=== PATIENT | male | born 1970 | race Caucasian/White ===

== ENCOUNTER 2019-11-30 13:36 | Outpatient (REF) | payer MEDICAID, SELFPAY | END 2019-11-30 13:37 | disposition home or self-care (01) | LOC: HO.LAB 13:36 | PROVIDERS: PCP Internal Medicine; Visit Provider Internal Medicine | DX: Z20.828 Contact with and (suspected) exposure to other viral communicable diseases (principal) | CPT/HCPCS: 87635 ==

== ENCOUNTER 2019-12-16 10:04 | Outpatient (REF) | payer MEDICAID, SELFPAY | END 2019-12-16 10:05 | disposition home or self-care (01) | LOC: HO.LAB 10:04 | PROVIDERS: Visit Provider Internal Medicine | DX: Z20.828 Contact with and (suspected) exposure to other viral communicable diseases (principal); R19.7 Diarrhea, unspecified | CPT/HCPCS: 99212; C9803; U0003 ==

== ENCOUNTER 2020-02-08 14:14 | Outpatient (REF) | payer MEDICAID, SELFPAY ==
[2020-02-08 15:32] LABS: Alanine Aminotransferase 36 U/L (0-40); Albumin Level 4.9 g/dL (3.5-5.0); Alkaline Phosphatase 81 U/L (39-117); Anion Gap 13 (12-20); Aspartate Amino Transferase 21 U/L (5-37); Bilirubin Total 0.7 mg/dL (0.0-1.0); Blood Urea Nitrogen 11 mg/dL (9-16); Carbon Dioxide 29 mmol/L (22-29); Chloride 104 mmol/L (96-108); Cholesterol 129 mg/dL; Estimated Glomerular Filt Rate > 60; Glucose Random 92 mg/dL (60-115); HDL Cholesterol 38 mg/dL; LDL Cholesterol Calculated 73 mg/dl; Sodium 141 mmol/L (135-145); Total Protein 7.8 g/dL (6.5-8.0); Triglycerides 91 mg/dL
[2020-02-08 15:58] LABS: Vitamin B12 314 pg/mL (200-900)
== END 2020-02-08 14:15 | disposition home or self-care (01) ==
LOC: HO.LAB 14:14
PROVIDERS: PCP Internal Medicine; Visit Provider Internal Medicine
DX: F32.5 Major depressive disorder, single episode, in full remission (principal); E78.2 Mixed hyperlipidemia; I10 Essential (primary) hypertension; Z68.31 Body mass index [BMI] 31.0-31.9, adult
CPT/HCPCS: 80053; 80061; 82607

== ENCOUNTER → 2020-02-17 10:43 | Outpatient (BNVA) | payer MEDICAID, SELFPAY | PROVIDERS: PCP Internal Medicine; Visit Provider Physician Assistant | DX: Z76.89 Persons encountering health services in other specified circumstances (principal) ==

== ENCOUNTER 2020-06-26 16:29 | Emergency (ER) | payer MEDICAID, SELFPAY ==
[2020-06-26 16:43] VITALS: BP 120/60; BP 127/77; PULSE 88; PULSE 90; RESP 14; TEMP 36.6; O2SAT 100; O2SAT 99; BMI 25.0
--- NOTE | 2020-06-26 16:49 | ED_ITS ---
HPI - Altered Mental Status General Chief Complaint: Overdose Stated Complaint: od Time Seen by Provider: 06/26/20 16:45 Source: patient and EMS Mode of arrival: EMS Limitations: altered mental status History of Present Illness HPI narrative: Patient brought by EMS for semi responsive and slow respirations with white pill ? Fentanyl next to him , was given 6 mg of Narcan and patient responded patient is awake now but does not remember what happened denying any use of drugs no complaints no history of seizures MD complaint: decreased responsiveness Related Data Home Medications Medication Instructions Recorded Confirmed atorvastatin 40 mg tablet 40 mg PO DAILY 12/16/19 12/16/19 lisinopril 20 1 tab PO DAILY 12/16/19 12/16/19 mg-hydrochlorothiazide 25 mg tablet melatonin 10 mg capsule 10 mg PO BEDTIME PRN 12/16/19 12/16/19 Allergies Allergy/AdvReac Type Severity Reaction Status Date / Time No Known Allergies Allergy Unverified 10/29/19 19:44 [No Known Allergies*] Review of Systems Review of Systems: Yes Unobtainable due to mental condition [facility] Past Medical History Medical History COVID-19 HTN (hypertension) Intentional weight loss Family History Family History Father Pancreatic cancer Mother Diabetes Social History Social History Alcohol intake: current Smoking Status: Former smoker Advance Directives: No Advance Directives Information Provided: No Physical Exam Vital Signs: Vital Signs: Last Vital Signs Temp 98 F 06/26/20 16:43 Pulse 88 06/26/20 16:43 Resp 14 06/26/20 16:43 BP 127/77 06/26/20 16:43 Pulse Ox 100 06/26/20 16:43 Body Mass Index 25.0 Appearance: Alert. Oriented X3. No acute distress. Sleepy no track guerra Eyes: PERRLA, No Nystagmus ENT: Pharynx normal. Oral Mucosa moist Neck: Normal inspection. Neck supple. CVS: Normal heart rate and rhythm. Pulses normal. Respiratory: No respiratory distress. Equal air entry bilateral, no wheezing/rales/rhonchi Abdomen: Soft and nontender. Bowel sounds are present, no mass palpable, no CVA tenderness Skin: Skin warm and dry. Normal skin color. Normal skin turgor. Extremities: No lower extremity edema. No calf tenderness Neuro: Oriented X 3. No motor deficit. No sensory deficit.No cerebellar signs , cranial nerves II-XII intact MDM - Altered Mental Status MDM Narrative Medical decision making narrative: Patient awake and alert admits taking 1 small pill likely fentanyl prior to what happened. Lab Data Result diagrams: 06/26/20 18:03 06/26/20 18:03 Labs: Lab Results 06/26/20 06/26/20 06/26/20 Range/Units 17:02 17:32 18:03 WBC 19.6 H (4.8-10.8) X10*3/uL RBC 4.37 L (4.60-5.80) X10*6/uL Hgb 13.4 L (14.0-18.0) g/dl Hct 38.4 L (42-52) % MCV 87.9 (80-98) fL MCH 30.7 (27.0-33.0) pg MCHC 34.9 (31.0-36.0) g/dl RDW 12.5 (11.0-16.0) % Plt Count 309 (160-400) X10*3/uL MPV 10.1 (9.4-12.4) fL Immature Gran % (Auto) 0.9 H (0.0-0.4) % Neut % (Auto) 87.3 H (45-73) % Lymph % (Auto) 4.3 L (20-40) % Stone % (Auto) 7.0 (2-11) % Eos % (Auto) 0.2 (0-4) % Baso % (Auto) 0.3 (0-2) % Lymph # (Auto) 0.8 L (1.2-4.9) X10*3/uL Stone # (Auto) 1.4 H (0.1-1.2) X10*3/uL Eos # (Auto) 0.0 (0.0-0.4) X10*3/uL Baso # (Auto) 0.1 (0.0-0.2) X10*3/uL Abs Immat Gran (auto) 0.18 H (0.00-0.03) X10*3/uL Absolute Neuts (auto) 17.2 H (2.0-8.3) X10*3/uL Absolute Nucleated RBC 0.000 (0.0-0.012) X10*3/uL Nucleated RBC % (auto) 0.0 (0.0-0.2) /100WBC POC Glucose 223 H (60-115) mg/dL Urine Opiates Screen Not Detected (Not Detect) Ur Barbiturates Screen Not Detected (Not Detect) Ur Phencyclidine Scrn Not Detected (Not Detect) Ur Amphetamines Screen Not Detected (Not Detect) U Benzodiazepines Scrn Not Detected (Not Detect) Urine Cocaine Screen Not Detected (Not Detect) U Marijuana (THC) Screen Not Detected (Not Detect) Discharge Plan Discharge Prescriptions: No Action atorvastatin 40 mg tablet 40 mg PO DAILY RF: 0 lisinopril-hydrochlorothiazide 20-25 mg tablet 1 tab PO DAILY RF: 0 melatonin 10 mg capsule 10 mg PO BEDTIME PRNRF: 0
[2020-06-26 17:08] LABS: Glucose, Whole Blood 223 mg/dL (60-115)
--- NOTE | 2020-06-26 17:55 | PC.NURSE ---
Pt reports taking 1 small white powder or pill prior to feeling dizzy and laying down on the ground. Pt states he is unsure of what the substance was. Provider aware
[2020-06-26 18:08] LABS: MANUAL DIFF FLAG NO
[2020-06-26 18:11] LABS: Amphetamine Screen Urine Not Detected (Not Detect); Barbiturates, Urine Not Detected (Not Detect); Benzodiazepines Screen Urine Not Detected (Not Detect); Cannabinoid Screen Urine Not Detected (Not Detect); Cocaine Screen Urine Not Detected (Not Detect); Opiate Screen Urine Not Detected (Not Detect); Phencyclidine Screen Urine Not Detected (Not Detect)
[2020-06-26 18:20] LABS: Basophils Absolute Auto 0.1 X10*3/uL (0.0-0.2); Basophils Percent Auto 0.3 % (0-2); Eosinophils Percent Auto 0.2 % (0-4); Hematocrit 38.4 % (42-52); Hemoglobin 13.4 g/dl (14.0-18.0); Imm Gran Abs Auto 0.18 X10*3/uL (0.00-0.03); Imm Gran Pct Auto 0.9 % (0.0-0.4); Lymphocytes Absolute Auto 0.8 X10*3/uL (1.2-4.9); Lymphocytes Percent Auto 4.3 % (20-40); Mean Corpuscular HGB Conc 34.9 g/dl (31.0-36.0); Mean Corpuscular Hemoglobin 30.7 pg (27.0-33.0); Mean Corpuscular Volume 87.9 fL (80-98); Mean Platelet Volume 10.1 fL (9.4-12.4); Monocytes Absolute Auto 1.4 X10*3/uL (0.1-1.2); Neutrophils Absolute Auto 17.2 X10*3/uL (2.0-8.3); Neutrophils Percent Auto 87.3 % (45-73); Platelet Count 309 X10*3/uL (160-400); Red Blood Count 4.37 X10*6/uL (4.60-5.80); Red Cell Distribution Width 12.5 % (11.0-16.0); White Blood Count 19.6 X10*3/uL (4.8-10.8)
[2020-06-26 18:39] LABS: Ethanol < 10 mg/dL
[2020-06-26 18:40] LABS: Anion Gap 14 (12-20); Blood Urea Nitrogen 16 mg/dL (9-16); Calcium 9.4 mg/dL (8.4-10.2); Carbon Dioxide 24 mmol/L (22-29); Chloride 108 mmol/L (96-108); Creatinine Clr Calc Pharmacy 76.1; Estimated Glomerular Filt Rate > 60; Glucose Random 134 mg/dL (60-115); Potassium 4.2 mmol/L (3.3-5.1); Sodium 142 mmol/L (135-145)
[2020-06-26 19:21] VITALS: BP 119/69; PULSE 65; RESP 15; TEMP 36.4; O2SAT 96
[2020-06-26 19:40] VITALS: BP 117/75; PULSE 76; RESP 16; O2SAT 99
== END 2020-06-26 19:43 | disposition home or self-care (01) ==
PROVIDERS: Emergency Provider Internal Medicine
DX: T40.411A Poisoning by fentanyl or fentanyl analogs, accidental (unintentional), initial encounter (principal); Y92.9 Unspecified place or not applicable; Z79.899 Other long term (current) drug therapy; Z87.891 Personal history of nicotine dependence
CPT/HCPCS: 36415; 80048; 80307; 80320; 82947; 85025; 99284

== ENCOUNTER 2020-07-02 10:48 | Outpatient (REF) | payer MEDICAID, SELFPAY ==
[2020-07-02 10:59] LABS: MANUAL DIFF FLAG NO
[2020-07-02 11:02] LABS: Basophils Percent Auto 0.4 % (0-2); Eosinophils Absolute Auto 0.3 X10*3/uL (0.0-0.4); Eosinophils Percent Auto 3.5 % (0-4); Hematocrit 39.3 % (42-52); Hemoglobin 13.7 g/dl (14.0-18.0); Imm Gran Abs Auto 0.04 X10*3/uL (0.00-0.03); Imm Gran Pct Auto 0.5 % (0.0-0.4); Lymphocytes Absolute Auto 1.5 X10*3/uL (1.2-4.9); Lymphocytes Percent Auto 18.9 % (20-40); Mean Corpuscular HGB Conc 34.9 g/dl (31.0-36.0); Mean Corpuscular Hemoglobin 30.6 pg (27.0-33.0); Mean Corpuscular Volume 87.7 fL (80-98); Mean Platelet Volume 9.6 fL (9.4-12.4); Monocytes Absolute Auto 0.4 X10*3/uL (0.1-1.2); Monocytes Percent Auto 5.5 % (2-11); Neutrophils Absolute Auto 5.7 X10*3/uL (2.0-8.3); Neutrophils Percent Auto 71.2 % (45-73); Platelet Count 343 X10*3/uL (160-400); Red Blood Count 4.48 X10*6/uL (4.60-5.80); Red Cell Distribution Width 12.7 % (11.0-16.0); White Blood Count 8.1 X10*3/uL (4.8-10.8)
[2020-07-02 11:34] LABS: Alanine Aminotransferase 46 U/L (0-40); Albumin Level 4.5 g/dL (3.5-5.0); Alkaline Phosphatase 85 U/L (39-117); Anion Gap 12 (12-20); Aspartate Amino Transferase 20 U/L (5-37); Bilirubin Total 0.6 mg/dL (0.0-1.0); Blood Urea Nitrogen 14 mg/dL (9-16); Calcium 9.6 mg/dL (8.4-10.2); Carbon Dioxide 25 mmol/L (22-29); Chloride 110 mmol/L (96-108); Cholesterol 203 mg/dL; Estimated Glomerular Filt Rate > 60; Glucose Random 99 mg/dL (60-115); HDL Cholesterol 49 mg/dL; LDL Cholesterol Calculated 138 mg/dl; Potassium 4.2 mmol/L (3.3-5.1); Sodium 143 mmol/L (135-145); Total Protein 7.3 g/dL (6.5-8.0); Triglycerides 83 mg/dL
== END 2020-07-02 10:49 | disposition home or self-care (01) ==
LOC: HO.LAB 10:48
PROVIDERS: PCP Internal Medicine; Visit Provider Internal Medicine
DX: Z00.01 Encounter for general adult medical examination with abnormal findings (principal); E78.00 Pure hypercholesterolemia, unspecified; I10 Essential (primary) hypertension; F32.89 Other specified depressive episodes
CPT/HCPCS: 36415; 80053; 80061; 85025

== ENCOUNTER 2020-08-24 22:03 | Emergency (ER) | payer MEDICAID, SELFPAY ==
[2020-08-24 22:10] VITALS: BP 107/66; PULSE 83; RESP 18; TEMP 37.1; O2SAT 100; BMI 33.4
--- NOTE | 2020-08-24 22:45 | PC.NURSE ---
2220: neuros intact during triage. affect flat. Pt reports anxiety and hearing himself in his ears .
[2020-08-24 22:53] VITALS: BP 112/71; PULSE 80; RESP 16; O2SAT 99
[2020-08-24 23:27] VITALS: BP 99/54; PULSE 73
--- NOTE | 2020-08-24 23:27 | ECG_ITS ---
Test Reason : SOB Blood Pressure : / mmHG Vent. Rate : 072 BPM Atrial Rate : 072 BPM P-R Int : 162 ms QRS Dur : 082 ms QT Int : 434 ms P-R-T Axes : 043 019 031 degrees QTc Int : 475 ms Normal sinus rhythm Normal ECG When compared to the previous EKG of No significant changes seen Referred By: Rebecca Gold Electronically Signed By:Kai Motley
[2020-08-24 23:40] VITALS: BP 92/54; PULSE 83
[2020-08-24 23:42] VITALS: BP 86/56; PULSE 80
[2020-08-24 23:56] LABS: Glucose, Whole Blood 93 mg/dL (60-115)
--- NOTE | 2020-08-24 23:59 | PC.NURSE ---
PT ADMITS TO USIG 5 BAGS OF HEROIN TONIGHT. STATES HE PUTS IT ON MY TONGUE . PT STATES AFTER USING THE HEOIN HE TOOK A NAP AND THEN WOKE UP NOT FEELING RIGHT AND SAID HE COULD HEAR MY VOICE IN MY R EAR
--- NOTE | 2020-08-25 00:34 | ED.GENADULT ---
HPI - General Adult General Chief complaint: General Medical Stated complaint: ear pain, cannot hear Time Seen by Provider: 08/24/20 23:27 History of Present Illness HPI narrative: 49-year-old male presents with hearing disturbance and ?wooziness? this started after patient used 5 bags of heroin. Patient states that he does not use frequently. Otherwise, he denies shortness of breath, chest pain/palpitations. At this time he states his symptoms have improved. Patient denies any suicidal or homicidal ideation. Related Data Allergies Allergy/AdvReac Type Severity Reaction Status Date / Time kiwi [KIWI] Allergy Unknown SWOLLEN Verified 08/25/20 01:00 LIPS Review of Systems Review of Systems: Pertinent positives and negatives as stated in HPI 10 point review of systems is otherwise negative. PMFSH Past Medical History Source: nursing notes reviewed Medical History Depression High cholesterol HTN (hypertension) Sudden hearing loss Surgical History No history of previous surgery Social History Social History Advance Directives: No Advance Directives Information Provided: No Physical Exam Vital Signs: Vital Signs: Last Vital Signs Temp 98.7 F 08/24/20 22:10 Pulse 87 08/25/20 02:34 Resp 20 08/25/20 02:34 BP 113/60 08/25/20 02:34 Pulse Ox 99 08/25/20 02:34 Body Mass Index 33.4 VITAL SIGNS: Reviewed. GENERAL: Well developed, well nourished, in no acute distress. HEAD: Normocephalic/atraumatic EYES: PERRLA, EOMI OROPHARYNX: no oral lesions noted, posterior pharynx clear NECK: Supple, no adenopathy LUNGS: Normal breath sounds. No adventitious sounds or accessory muscle use. SpO2<99> CARDIOVASCULAR: Regular rate and rhythm without noted murmurs ABDOMEN: Soft, non-tender, non-distended with bowel sounds. SKIN: Inspection of the skin reveals no rashes NEUROLOGIC: Alert and oriented x 4. Strength and sensation to light touch were grossly intact x 4. Course Course Course Narrative: 49-year-old male with history and clinical presentation consistent with heroin overdose in appear to be very drowsy with pinpoint pupils and so patient was provided with intranasal Narcan as well as Zofran with significant improvement in level of alertness. Patient demonstrated complete resolution of all symptoms. He was observed for 2 hours and then discharged in stable condition. Medical Decision Making Lab Data Labs: Lab Results 08/24/20 Range/Units 23:46 POC Glucose 93 (60-115) mg/dL ECG Data Prior ECG tracings: not available for review Interpretation: Normal sinus rhythm, HR-72, no STEMI, [place]/QRS/QTC are within normal limits. Discharge Plan Discharge Clinical Impression: Overdose Patient Disposition: Home, Self-Care Instructions: Adult Overdose (ED) Additional Instructions: Return to the ER for acute worsening of symptoms. Referrals: Esther Greer MD [Primary Care Provider] - 2 days Interventions: ED Discharge Assessment Last Done: 08/25/20 03:24 Discharge Date/Time: 08/25/20 03:25 Print Language: Irish
[2020-08-25 00:56] VITALS: O2SAT 98
[2020-08-25] MEDS: ondansetron HCL 4 MG/2 ML VIAL IVPUSH (01:09)
[2020-08-25 01:10] VITALS: BP 115/57; PULSE 65; RESP 18
[2020-08-25] MEDS: Naloxone HCl Nasal 4 MG SPRAY NOSTRILALT (01:10)
[2020-08-25 02:34] VITALS: BP 113/60; PULSE 87; RESP 20; O2SAT 99
[2020-08-25] MEDS: Naloxone HCl Nasal TAKE HOME 4 MG SPRAY NOSTRILALT (03:25)
== END 2020-08-25 03:25 | disposition home or self-care (01) ==
PROVIDERS: Emergency Provider Student in an Organized Health Care Education/Training Program; PCP Internal Medicine
DX: T40.1X1A Poisoning by heroin, accidental (unintentional), initial encounter (principal); Y92.9 Unspecified place or not applicable; F11.10 Opioid abuse, uncomplicated; Z71.51 Drug abuse counseling and surveillance of drug abuser; Z79.899 Other long term (current) drug therapy
CPT/HCPCS: 82947; 93005; 96374; 99284; J2405

== ENCOUNTER 2020-10-04 10:34 | Outpatient (REF) | payer MEDICAID, SELFPAY ==
[2020-10-04 11:08] LABS: COVID-19 Test Negative (Negative)
== END 2020-10-04 10:35 | disposition home or self-care (01) ==
LOC: HO.LAB 10:34
PROVIDERS: PCP Internal Medicine; Visit Provider Internal Medicine
DX: Z20.822 Contact with and (suspected) exposure to COVID-19 (principal)
CPT/HCPCS: 36415; 87635; C9803

== ENCOUNTER 2020-12-28 11:54 | Emergency (ER) | payer MEDICAID, SELFPAY ==
--- NOTE | ~2020-12-28 | CT_ITS ---
EXAMINATION: CT CERVICAL SPINE WITHOUT CONTRAST CLINICAL INFORMATION: Left finger tingling COMPARISON: CT cervical spine noncontrast 10/18/2018 TECHNIQUE: Multidetector volumetric CT imaging of the cervical spine is performed without contrast in the axial plane. Additional 2D reformatted coronal and sagittal images are generated on the CT workstation and uploaded to PACS. This CT examination was performed using dose optimization techniques as appropriate, variously including the following: *Automated exposure control *Adjustment of mA and/or kV according to patient size (this includes techniques or standardized protocols for targeted exams where dose is matched to indication/reason for exam; i.e. extremities or head) *Use of iterative reconstruction technique DLP: 634 mGy-cm FINDINGS: There is mild rightward tilting cervical spine similar to prior exam. There is normal cervical lordosis. The craniocervical junction is normal. The odontoid appears intact. There is no vertebral compression or visible fracture. There is no spondylolisthesis or destructive process or paraspinal soft tissue swelling. No prevertebral soft tissue swelling. There is mild vertebral spurring C3-C4 and C4-C5. There is borderline disc narrowing C6-C7. No perched facet. No erosive change. No visible focal osseous narrowing neural foramina. Lung apices are clear. No pneumothorax. CT/CT cervical spine wo con IMPRESSION: No acute bony abnormality or prevertebral soft tissue swelling.
[2020-12-28 11:58] VITALS: BP 144/81; PULSE 85; RESP 16; TEMP 37.2; O2SAT 100; BMI 30.4
--- NOTE | 2020-12-28 14:17 | ECG_ITS ---
Test Reason : finger tingling Blood Pressure : / mmHG Vent. Rate : 071 BPM Atrial Rate : 071 BPM P-R Int : 154 ms QRS Dur : 074 ms QT Int : 406 ms P-R-T Axes : 047 016 049 degrees QTc Int : 441 ms Normal sinus rhythm Normal ECG When compared with ECG of 24-AUG-2020 23:52, No significant change was found Referred By: Jennifer Fritz Electronically Signed By:GRETCHEN BUI MD
[2020-12-28 15:46] VITALS: BP 142/85; PULSE 65; RESP 16; TEMP 36.6; O2SAT 100
--- NOTE | 2020-12-28 16:34 | ED_ITS ---
HPI - General Adult General Chief complaint: Extremity Problem Stated complaint: lt arm & finger numbness Time Seen by Provider: 12/28/20 14:00 Source: patient Mode of arrival: ambulatory History of Present Illness HPI narrative: 50-year-old male with a past medical history of COVID-19, depression, hyperlipidemia, hypertension presenting to the ED complaining of intermittent left index finger tingling/paresthesias radiating up left arm x a couple days. Reports pain to left trapezius muscle, worse with movement. Denies weakness, CP, SOB, neck/back pain, urinary incontinence/retention, headache, visual change/loss Onset (ago): day(s) Related Data Home Medications Medication Instructions Recorded Confirmed atorvastatin 40 mg tablet 40 mg PO DAILY 12/16/19 12/16/19 lisinopril 20 1 tab PO DAILY 12/16/19 12/16/19 mg-hydrochlorothiazide 25 mg tablet melatonin 10 mg capsule 10 mg PO BEDTIME PRN 12/16/19 12/16/19 Previous Rx's Medication Instructions Recorded acetaminophen 500 mg tablet 500 mg PO Q6H PRN #20 tab 12/28/20 (Tylenol Extra Strength) cyclobenzaprine 5 mg tablet 5 mg PO Q8H PRN 5 Days #14 tab 12/28/20 lidocaine 5 % topical patch 1 patch TOPICAL DAILY PRN #30 ea 12/28/20 (Lidoderm) MDD remove after 12 hours naproxen 500 mg tablet 500 mg PO BID PRN 10 Days #20 tab 12/28/20 Allergies Allergy/AdvReac Type Severity Reaction Status Date / Time kiwi [KIWI] Allergy Unknown SWOLLEN Verified 10/04/20 11:00 LIPS Review of Systems Review of Systems: Constitutional: No Fever, No Chills, No Fatigue, No Malaise ENT/Mouth: No Ear Pain, No Nasal Congestion, No sore throat Eyes: No Eye Pain, No Swelling, No Redness, No Discharge, No Vision Changes Cardiovascular: No Chest Pain, No SOB Respiratory: No Cough, No Sputum, No Dyspnea Gastrointestinal: No Nausea, No Vomiting, No Diarrhea, No Constipation, No Abdominal pain Genitourinary: No Dysuria, No Urinary Frequency, No Hematuria, No Flank Pain, No urinary incontinence/retention Musculoskeletal: + joint pain, No Myalgias, No Joint Swelling Skin: No Skin Lesions, No rash Neuro: No Weakness, + Numbness, No Paresthesias, No Loss of Consciousness, No Dizziness, No Headache Yes all other systems are reviewed and are negative Neurologic: Denies Sensory deficit (Neuro) [facility] Past Medical History Attestation statement: The following information was validated with the patient. Medical History Depression High cholesterol HTN (hypertension) Sudden hearing loss Surgical History No history of previous surgery Family History Family History (System 10/04/20 @ 11:00 by Tawana Javier) Father Pancreatic cancer Mother Diabetes Social History Social History (System 10/04/20 @ 11:00 by Tawana Javier) Alcohol intake: current Advance Directives: No Advance Directives Information Provided: No Physical Exam Vital Signs: Vital Signs: Last Vital Signs Temp 98 F 12/28/20 15:46 Pulse 65 12/28/20 15:46 Resp 16 12/28/20 15:46 BP 142/85 H 12/28/20 15:46 Pulse Ox 100 12/28/20 15:46 Body Mass Index 30.4 Const: General: cooperative, healthy appearing and no acute distress Orientation/consciousness: patient oriented x3 Limitations: no limitations HENMT: Head: Yes normal to inspection and Yes atraumatic Ears: hearing grossly normal bilaterally, external ears normal, TM's normal bilaterally and mastoids normal General nose exam: Normal external nose present Face and sinus: Yes normal facial exam Mouth: Normal oral and palatal mucosa present Throat: Yes posterior oropharynx normal, Yes tonsils normal and Yes uvula midline Eyes: General: appearance normal, both eyes and all related structures Pupils: Equal, round and reactive pupils present EOM: EOMs intact bilaterally Neck: Other: No midline cervical spinous tenderness/step-off or deformity. + left trapezius muscle tenderness Neck: Yes normal visual inspection Resp: Effort & Inspection: normal respiratory effort and no respiratory distress Auscultation: clear to auscultation bilaterally Cardio: Rate: regular rate Heart sounds: S1 normal heart sound present and S2 normal heart sound present Peripheral pulses: radial pulses present GI: Inspection: Yes normal to inspection Palpation (GI): Soft to palpation, nontender, no guarding and not rigid : General: Yes no CVA tenderness Back/Spine/Pelvis: Other: No midline thoracic/lumbar spinous tenderness Back: no CVA tenderness Skin: Rashes: no rashes Wounds: no wounds Neuro: General: patient oriented x3, gait normal, tone normal, moves all extremities, no focal motor deficits and CN's II-XI intact bilaterally Cranial nerves: Yes CN's II-XII intact bilaterally and Yes Equal, round and reactive pupils present Gait exam (Neuro): Normal gait present Sensory Exam: No Sensory deficit (Neuro) Extrem: Other: Left hand range of motion intact, [id number] opposition intact, sensation intact to light touch. General: Yes normal to inspection Course Course Course Narrative: CT cervical spine wo con IMPRESSION: No acute bony abnormality or prevertebral soft tissue swelling. >> results discussed with patient, discussed recommended follow-up with Neurosurgery. He verbalized understanding feel safe for discharge home at this time Medical Decision Making MDM Narrative Medical decision making narrative: 50-year-old male with a past medical history of COVID-19, depression, hyperlipidemia, hypertension presenting to the ED complaining of intermittent left index finger tingling/paresthesias radiating up left arm x a couple days. Reports pain to left trapezius muscle, worse with movement. On exam vital signs stable, NAD/nontoxic. Concern for ?cervical stenosis vs neck MSK pain/trapezius spasming vs paresthesias. Low concern for carpal tunnel, ACS, cord compression Plan: EKG, CT cervial spine ECG Data Attestation: I personally reviewed and interpreted this ECG as follows: Interpretation: EKG normal sinus rhythm with a rate of 71. MI interval 54. QTC 441 Discharge Plan Discharge Clinical Impression: Hand paresthesia Qualifiers: Laterality: left Qualified Code(s): R20.2 - Paresthesia of skin Patient Disposition: Home, Self-Care Instructions: Paresthesia (ED) Additional Instructions: Your CT scan does not show any bony abnormality of your cervical spine. There is borderline disc narrowing at C6/C7 and some vertebral bone spurring at C3-C4 and C4-C5 it is recommended he follow-up with a neurosurgeon Flexeril is a muscle relaxer, take at night as it makes you drowsy, do not drive, drink alcohol, or operate machinery while taking it Naproxen as an anti-inflammatory / pain medication, take with food Lidoderm patches are numbing patches, apply to painful area In addition take Tylenol at home If symptoms persist or worsen, pain becomes unbearable, you developed urinary retention or incontinence, or weakness return to the ED Prescriptions: New acetaminophen [Tylenol Extra Strength] 500 mg tablet 500 mg PO Q6H PRN (Reason: pain or fever) Qty: 20 RF: 0 lidocaine [Lidoderm] 5 % adhesive patch,medicated 1 patch topical DAILY MDD remove after 12 hours PRN (Reason: pain) Qty: 30 RF: 0 naproxen 500 mg tablet 500 mg PO BID PRN (Reason: pain) 10 Days Qty: 20 RF: 0 cyclobenzaprine 5 mg tablet 5 mg PO Q8H PRN (Reason: pain (scale score 7-10)) 5 Days Qty: 14 RF: 0 No Action atorvastatin 40 mg tablet 40 mg PO DAILY RF: 0 lisinopril-hydrochlorothiazide 20-25 mg tablet 1 tab PO DAILY RF: 0 melatonin 10 mg capsule 10 mg PO BEDTIME PRNRF: 0 Referrals: Esther Greer MD [Primary Care Provider] - 2 days Gloria Short MD [Physician] - 5 days Interventions: ED Discharge Assessment Last Done: 12/28/20 16:57 Discharge Date/Time: 12/28/20 16:57
== END 2020-12-28 16:57 | disposition home or self-care (01) ==
PROVIDERS: Emergency Provider Emergency Medicine; PCP Internal Medicine
DX: R20.2 Paresthesia of skin (principal); I10 Essential (primary) hypertension
CPT/HCPCS: 72125; 93005; 99284

== ENCOUNTER 2021-01-05 10:30 | Emergency (ER) | payer MEDICAID, SELFPAY ==
[2021-01-05 10:34] VITALS: BP 146/86; PULSE 89; RESP 18; TEMP 36.8; O2SAT 100; BMI 33.4
--- NOTE | 2021-01-05 10:37 | ED.EXTPRO ---
HPI - Extremity Problem General Chief complaint: Extremity Problem Stated complaint: shoulder/arm pain, hand numbness Time Seen by Provider: 01/05/21 10:34 Source: patient Mode of arrival: ambulatory Limitations: no limitations History of Present Illness MD Complaint: extremity pain Onset (ago): day(s) (12) Pain Consistency: constant Location: left and upper extremity Quality: aching and constant Radiation: distal Relieving factors: other (massaging trapezius area) Exacerbating factors: range of motion and palpation Associated symptoms: other (r index finger numb ) Context: other (woke up like this) Related Data Home Medications Medication Instructions Recorded Confirmed atorvastatin 40 mg tablet 40 mg PO DAILY 12/16/19 12/16/19 lisinopril 20 1 tab PO DAILY 12/16/19 12/16/19 mg-hydrochlorothiazide 25 mg tablet melatonin 10 mg capsule 10 mg PO BEDTIME PRN 12/16/19 12/16/19 Previous Rx's Medication Instructions Recorded acetaminophen 500 mg tablet 500 mg PO Q6H PRN #20 tab 12/28/20 (Tylenol Extra Strength) cyclobenzaprine 5 mg tablet 5 mg PO Q8H PRN 5 Days #14 tab 12/28/20 lidocaine 5 % topical patch 1 patch TOPICAL DAILY PRN #30 ea 12/28/20 (Lidoderm) MDD remove after 12 hours naproxen 500 mg tablet 500 mg PO BID PRN 10 Days #20 tab 12/28/20 gabapentin 100 mg capsule 100 mg PO BID #30 cap 01/05/21 morphine 15 mg immediate release 15 mg PO Q6H PRN 3 Days #12 tab 01/05/21 tablet prednisone 20 mg tablet 40 mg PO DAILY 5 Days #10 tab 01/05/21 Allergies Allergy/AdvReac Type Severity Reaction Status Date / Time kiwi [KIWI] Allergy Unknown SWOLLEN Verified 10/04/20 11:00 LIPS Review of Systems Review of Systems: Constitutional : No Fever, No Chills ENT/Mouth : No Ear Pain, No Hoarseness, No sore throat Eyes: No Eye Pain, No Swelling, No Redness, No Foreign Body Cardiovascular : No Chest Pain, No SOB Respiratory : No Cough, No Dyspnea Gastrointestinal : No Nausea, No Vomiting, No Diarrhea, No abdominal Pain Genitourinary : No Dysuria, No Hematuria Musculoskeletal : positive joint pain, No Myalgias, No Joint Swelling Skin : No Skin lacerations, No rash Neuro : No Weakness, pos Numbness, No Loss of Consciousness, No Dizziness, No Headache Psych : No Anxiety/Panic, No Depression PMF Past Medical History Attestation statement: The following information was validated with the patient. Medical History COVID-19 Depression High cholesterol HTN (hypertension) HTN (hypertension) Intentional weight loss Sudden hearing loss Surgical History No history of previous surgery Family History Family History (System 10/04/20 @ 11:00 by Tawana Javier) Father Pancreatic cancer Mother Diabetes Social History Social History (Updated 01/05/21 @ 10:48 by Vanessa Harrington DO) Alcohol intake: current Patient Tobacco Use Status: Never used Tobacco Advance Directives: No Physical Exam Vital Signs: Vital Signs: Last Vital Signs Temp 98.2 F 01/05/21 10:34 Pulse 89 01/05/21 10:34 Resp 18 01/05/21 10:34 BP 146/86 H 01/05/21 10:34 Pulse Ox 100 01/05/21 10:34 Body Mass Index 33.4 Appearance: Alert. Oriented X3. No acute distress. Eyes: Pupils equal, round and reactive to light. ENT: Pharynx normal. Neck: Normal inspection. Neck supple. + spurling maneuver L side CVS: Normal heart rate and rhythm. Pulses normal. Respiratory: No respiratory distress. Breath sounds normal. Abdomen: Soft and nontender. Skin: Skin warm and dry. Normal skin color. Extremities: No lower extremity edema. LUE 2+ distal pulses 5/5 strenghth feels tingling in L index finger only Neuro: Oriented X 3. No motor deficit. No sensory deficit. MDM - Extremity (Nontraumatic) MDM Narrative Medical decision making narrative: 50 yo male with L sided cervical radiculopathy has good strenght in L hand reports tinglling in index finger bounding pulses - ongoing for 10+ days - has good follow up will start on pain medications and steroids. Anticipate DC home just had CT cspine Discharge Plan Discharge Clinical Impression: Cervical radiculopathy at C6 Patient Disposition: Home, Self-Care Instructions: Cervical Radiculopathy (ED) Additional Instructions: return to ED for any worsening symptoms or concerns Prescriptions: New prednisone 20 mg tablet 40 mg PO DAILY 5 Days Qty: 10 RF: 0 morphine 15 mg tablet 15 mg PO Q6H PRN (Reason: pain) 3 Days Qty: 12 RF: 0 gabapentin 100 mg capsule 100 mg PO BID Qty: 30 RF: 0 No Action acetaminophen [Tylenol Extra Strength] 500 mg tablet 500 mg PO Q6H PRN (Reason: pain or fever) Qty: 20 RF: 0 lidocaine [Lidoderm] 5 % adhesive patch,medicated 1 patch topical DAILY MDD remove after 12 hours PRN (Reason: pain) Qty: 30 RF: 0 naproxen 500 mg tablet 500 mg PO BID PRN (Reason: pain) 10 Days Qty: 20 RF: 0 cyclobenzaprine 5 mg tablet 5 mg PO Q8H PRN (Reason: pain (scale score 7-10)) 5 Days Qty: 14 RF: 0 atorvastatin 40 mg tablet 40 mg PO DAILY RF: 0 lisinopril-hydrochlorothiazide 20-25 mg tablet 1 tab PO DAILY RF: 0 melatonin 10 mg capsule 10 mg PO BEDTIME PRNRF: 0 Referrals: Esther Greer MD [Primary Care Provider] - 5 days Interventions: ED Discharge Assessment Last Done: 01/05/21 11:10 Discharge Date/Time: 01/05/21 11:10
== END 2021-01-05 11:10 | disposition home or self-care (01) ==
PROVIDERS: Emergency Provider Emergency Medicine; PCP Internal Medicine
DX: M54.12 Radiculopathy, cervical region (principal); Z79.899 Other long term (current) drug therapy
CPT/HCPCS: 99283

== ENCOUNTER 2021-01-11 00:53 | Inpatient (IN) | payer MEDICAID, SELFPAY ==
[2021-01-11] VITALS (19 sets, daily range): BP systolic 113–145; BP diastolic 62–86; PULSE 88–119; RESP 10–34; TEMP 35.5–36.7; O2SAT 89–100; BMI 33.7
--- NOTE | ~2021-01-11 | CT_ITS ---
EXAMINATION: CT CHEST WITHOUT CONTRAST CLINICAL INFORMATION: Shortness of breath. Question aspiration. COMPARISON: Chest radiograph 01/11/2021. TECHNIQUE: Multidetector volumetric CT imaging of the chest was done. Axial MIP volume rendering provided. Sagittal and coronal reformatted images were obtained. This CT examination was performed using dose optimization techniques as appropriate, variously including the following: *Automated exposure control *Adjustment of mA and/or kV according to patient size (this includes techniques or standardized protocols for targeted exams where dose is matched to indication/reason for exam; i.e. extremities or head) *Use of iterative reconstruction technique DLP: 349 mGy-cm FINDINGS: CLINICAL SERVICES SPECIALIST: Multiple external artifacts overlie the thorax. LUNGS: Multifocal groundglass and developing alveolar opacities are present in association with peribronchial wall thickening which is probably bilateral and symmetric. Relative subpleural sparing is noted bilaterally. No air bronchograms or dense pulmonary consolidation is identified. No evidence of centrilobular emphysema. MEDIASTINUM: No lymphadenopathy. Normal heart size. Normal caliber of the thoracic aorta. No gross pericardial fluid collections. PLEURA: There is no pleural effusion. No pleural mass or thickening. AXILLA: No lymphadenopathy. UPPER ABDOMEN: Moderate gaseous and fluid distention of the stomach. No fluid distention of the thoracic esophagus. OSSEOUS STRUCTURES: Mild multilevel chronic spondylosis of the thoracic spine. CT/CT chest wo con IMPRESSION: -Bilateral diffuse alveolar opacities and peribronchial wall thickening in a generally symmetric configuration. These findings may represent pulmonary edema. Relative subpleural sparing of findings is noted which is sometimes a feature resolving pulmonary edema. Findings could also represent infection or pulmonary hemorrhage. Findings are not typical for aspiration pneumonitis given the diffuse appearance of findings and relative subpleural sparing. Multifocal atypical/viral pneumonia could have a similar appearance. -Moderate quantity of gas and fluid within the visualized stomach. No fluid distention of the thoracic esophagus.
--- NOTE | ~2021-01-11 | CT_ITS ---
EXAMINATION: CT HEAD WITHOUT CONTRAST CLINICAL INFORMATION: Fall. Overdose. COMPARISON: None TECHNIQUE: Contiguous axial imaging was performed from the skull base to vertex without intravenous administration of contrast. This CT examination was performed using dose optimization techniques as appropriate, variously including the following: *Automated exposure control *Adjustment of mA and/or kV according to patient size (this includes techniques or standardized protocols for targeted exams where dose is matched to indication/reason for exam; i.e. extremities or head) *Use of iterative reconstruction technique DLP: 976 mGy-cm FINDINGS: The ventricles and sulci are normal in size and configuration. No focal parenchymal lesions of the brain or abnormal extra-axial fluid collections identified. No intrarenal hemorrhage, tumors or acute infarcts noted. The orbits and globes are normal in appearance. Cutaneous faisal are present in the left parietal region. Minimal dependent fluid is present within the maxillary sinuses. No maxillofacial soft tissue inflammatory changes. Intact appearance of the orbital martell. CT/CT head/brain wo con IMPRESSION: -No intracranial abnormalities. -Extracranial cutaneous faisal in the left parietal region.
--- NOTE | ~2021-01-11 | XR_ITS ---
EXAMINATION: XR CHEST CLINICAL INFORMATION: Aspiration versus pulmonary edema. COMPARISON: Chest radiograph 10/18/2018. TECHNIQUE: Frontal view of the chest was obtained. FINDINGS: Cardiomegaly mediastinal silhouette is normal in appearance. No effusions or pneumothoraces are visualized. Low lung volumes are present. Mild diffuse vascular indistinctness is noted. No focal pulmonary consolidation. XR/XR chest 1V IMPRESSION: -Mild pulmonary vascular congestion. No focal pulmonary consolidation.
[2021-01-11 01:05] LABS: Glucose, Whole Blood 333 mg/dL (60-115)
--- NOTE | 2021-01-11 01:07 | ED.OVERDOSE ---
HPI - Overdose General Chief Complaint: Overdose Stated Complaint: OD, head strike w/ lac Time Seen by Provider: 01/11/21 00:59 Source: patient and EMS Mode of arrival: EMS History of Present Illness HPI Narrative: 50-year-old male brought in by EMS after they were called for the roommate finding patient unresponsive face down on the floor. EMS administered 12 mg of intranasal Narcan in total prior to arrival, patient was noted to be hypoxic initially with sugars into the 400s but patient has no history of diabetes. EMS reports laceration to the left parietal scalp with control bleeding. Patient endorses that he consumed ?a lot? of escitalopram and morphine pills the latter of which were prescribed to him for left upper extremity pain. EMS states that on the way in patient has had multiple episodes of vomiting and suspicious for aspiration. Related Data Home Medications Medication Instructions Recorded Confirmed atorvastatin 40 mg tablet 40 mg PO DAILY 12/16/19 12/16/19 lisinopril 20 1 tab PO DAILY 12/16/19 12/16/19 mg-hydrochlorothiazide 25 mg tablet melatonin 10 mg capsule 10 mg PO BEDTIME PRN 12/16/19 12/16/19 Previous Rx's Medication Instructions Recorded acetaminophen 500 mg tablet 500 mg PO Q6H PRN #20 tab 12/28/20 (Tylenol Extra Strength) cyclobenzaprine 5 mg tablet 5 mg PO Q8H PRN 5 Days #14 tab 12/28/20 lidocaine 5 % topical patch 1 patch TOPICAL DAILY PRN #30 ea 12/28/20 (Lidoderm) MDD remove after 12 hours naproxen 500 mg tablet 500 mg PO BID PRN 10 Days #20 tab 12/28/20 gabapentin 100 mg capsule 100 mg PO BID #30 cap 01/05/21 prednisone 20 mg tablet 40 mg PO DAILY 5 Days #10 tab 01/05/21 Allergies Allergy/AdvReac Type Severity Reaction Status Date / Time kiwi [KIWI] Allergy Unknown SWOLLEN Verified 01/11/21 01:19 LIPS Review of Systems Review of Systems: Pertinent positives and negatives as stated in HPI 10 point review of systems is otherwise negative. PMFSH Past Medical History Source: nursing notes reviewed Medical History COVID-19 Depression High cholesterol HTN (hypertension) HTN (hypertension) Intentional weight loss Sudden hearing loss Surgical History No history of previous surgery Family History Family History Father Pancreatic cancer Mother Diabetes Social History Social History Alcohol intake: current Patient Tobacco Use Status: Never used Tobacco Advance Directives: No Advance Directives Information Provided: Yes Physical Exam Vital Signs: Vital Signs: Last Vital Signs Temp 96.2 F L 01/11/21 02:03 Pulse 89 01/11/21 04:12 Resp 26 H 01/11/21 04:18 BP 113/72 01/11/21 04:12 Pulse Ox 93 01/11/21 04:12 Oxygen Flow Rate 6 01/11/21 01:07 Body Mass Index 33.7 VITAL SIGNS: Reviewed. GENERAL: Well developed, well nourished, in no acute distress. HEAD: Normocephalic/4 cm scalp laceration to left parietal EYES: PERRLA, EOMI, pinpoint EARS: Ext canals without abnormality, TMs non-bulging and non-erythematous NOSE: Nares patent bilateral OROPHARYNX: no oral lesions noted, posterior pharynx clear and non-erythematous without noted tonsillar enlargement/erythema/exudates NECK: Supple, no adenopathy LUNGS: Tachypnea, increased work of breathing, bilateral coarse rhonchi throughout SpO2<92> on 6 L CARDIOVASCULAR: Regular rate and rhythm without noted murmurs, no JVD or lower extremity edema. ABDOMEN: Soft, non-tender, non-distended with bowel sounds. SKIN: Inspection of the skin reveals no rashes NEUROLOGIC: Drowsy but easily aroused and oriented x 3. Strength and sensation to light touch were grossly intact x 4. Course Course Course Narrative: 50-year-old male found unresponsive, unclear whether syncopal, seizure, accidental overdose. On arrival patient noted to be an respiratory distress likely secondary to a combination of events such as aspiration, possible pulmonary edema secondary to Narcan administration, and less likely possibility patient's underlying asthma. Patient was provided with albuterol nebulize treatments and ultimately placed on high-flow and has progressively become more alert but is overall drowsy. Initially, patient was noted to be in respiratory acidosis likely secondary to unresponsive state as well as noted to have an elevated lactic acid also thought to be secondary to patient's unresponsive state. On repeat lab work this has continue to improve, although patient still mildly acidotic with pCO2 relatively unchanged despite being on high-flow. The noted leukocytosis is felt to be reactive, however patient was treated with prophylactic antibiotics given suspected aspiration event. He is otherwise hemodynamically stable. I discussed this case with inpatient hospitalist who agrees for admission. Procedures Laceration Laceration 1: Site: scalp Side (If applicable): left Size (cm): 4 Description: linear Depth: simple, single layer Pre-repair: wound explored, irrigated extensively and deep structures intact Skin layer closed with: other ([place], #11) MDM - Overdose Lab Data Result diagrams: 01/11/21 01:10 01/11/21 03:59 Labs: Lab Results 01/11/21 01/11/21 01/11/21 Range/Units 01:01 01:10 01:10 WBC 26.2 H (4.8-10.8) X10*3/uL RBC 4.68 (4.60-5.80) X10*6/uL Hgb 14.2 (14.0-18.0) g/dl Hct 44.4 (42.0-52.0) % MCV 94.9 (80.0-98.0) fL MCH 30.3 (27.0-33.0) pg MCHC 32.0 (31.0-36.0) g/dl RDW 14.4 (11.0-16.0) % Plt Count [employer] MPV Not Reportable Immature Gran % (Auto) Cancelled Neut % (Auto) Cancelled Lymph % (Auto) Cancelled [place] % (Auto) Cancelled Eos % (Auto) Cancelled Baso % (Auto) Cancelled Lymph # (Auto) Cancelled [place] # (Auto) Cancelled Eos # (Auto) Cancelled Baso # (Auto) Cancelled Abs Immat Gran (auto) Cancelled Absolute Neuts (auto) Cancelled Absolute Nucleated RBC 0.120 H (0.0-0.012) X10*3/uL Nucleated RBC % (auto) 0.5 H (0.0-0.2) /100WBC Neutrophils % (Manual) 64 (45-73) % Band Neutrophils % 4 (3-5) % Lymphocytes % (Manual) 20 (20-40) % Monocytes % (Manual) 1 L (2-11) % Metamyelocytes % 9 % Myelocytes % 2 % Abs Neuts (Manual) 17.8 H (2.0-8.3) X10*3/uL Lymphocytes # (Manual) 5.2 H (1.2-4.9) X10*3/uL Monocytes # (Manual) 0.3 (0.1-1.2) X10*3/uL Metamyelocytes # 2.4 X10*3/uL Myelocytes # 0.5 X10*/uL Nucleated RBCs 2 H (0-0) /100WBC Toxic Vacuolation PRESENT Platelet Estimate NORMAL (NORMAL) Large Platelets PRESENT Plt Morphology Comment NORMAL RBC Morphology NORMAL Polychromasia 1+ (0-2) /OIF Basophilic Stippling 1+ (0-2) /OIF Tear Drop Cells 1+ (0-2) /OIF VBG pH (7.32-7.43) VBG pCO2 mmHg VBG pO2 mmHg VBG HCO3 (22-26) mmol/L VBG O2 Saturation % VBG Base Excess mmol/L Sodium 140 (135-145) mmol/L Potassium 5.6 H D (3.3-5.1) mmol/L Chloride 103 (96-108) mmol/L Carbon Dioxide 20 L (22-29) mmol/L Anion Gap 23 H (12-20) BUN 29 H D (9-16) mg/dL Creatinine 1.48 H (0.5-1.4) mg/dL Estim Creat Clear Calc 70.2 Estimated GFR 51 POC Glucose 333 H (60-115) mg/dL Random Glucose 372 H* (60-115) mg/dL Lactic Acid (0.5-2.0) mmol/L Lactic Acid Fup @ 2Hr (0.5-2.0) mmol/L Calcium 9.5 (8.4-10.2) mg/dL Total Bilirubin 0.3 (0.0-1.0) mg/dL AST 56 H (5-37) U/L ALT 68 H (0-40) U/L Alkaline Phosphatase 94 (39-117) U/L Troponin I High Sens (<3.5-35.0) ng/L Total Protein 7.1 (6.5-8.0) g/dL Albumin 4.2 (3.5-5.0) g/dL Lipase 33 (8-78) U/L Urine Color Urine Appearance Urine pH (5.0-8.0) Ur Specific [place] (1.005-1.025) Urine Protein (NEG-TRACE) MG/DL Urine Glucose (UA) (NEG) MG/DL Urine Ketones (NEG) MG/DL Urine Blood (NEG) Urine Nitrite (NEG) Ur Leukocyte Esterase (NEG) Urine Opiates Screen (Not Detect) Urine Fentanyl Screen (Not Detect) Ur Barbiturates Screen (Not Detect) Ur Phencyclidine Scrn (Not Detect) Ur Amphetamines Screen (Not Detect) U Benzodiazepines Scrn (Not Detect) Urine Cocaine Screen (Not Detect) U Marijuana (THC) Screen (Not Detect) Ethyl Alcohol mg/dL Acetone, Qual Negative (Negative) COVID-19 (ELBA) (Negative) COVID-19 Clin Com 01/11/21 01/11/21 01/11/21 Range/Units 01:10 01:10 01:10 WBC (4.8-10.8) X10*3/uL RBC (4.60-5.80) X10*6/uL Hgb (14.0-18.0) g/dl Hct (42.0-52.0) % MCV (80.0-98.0) fL MCH (27.0-33.0) pg MCHC (31.0-36.0) g/dl RDW (11.0-16.0) % Plt Count MPV Immature Gran % (Auto) Neut % (Auto) Lymph % (Auto) [place] % (Auto) Eos % (Auto) Baso % (Auto) Lymph # (Auto) [place] # (Auto) Eos # (Auto) Baso # (Auto) Abs Immat Gran (auto) Absolute Neuts (auto) Absolute Nucleated RBC (0.0-0.012) X10*3/uL Nucleated RBC % (auto) (0.0-0.2) /100WBC Neutrophils % (Manual) (45-73) % Band Neutrophils % (3-5) % Lymphocytes % (Manual) (20-40) % Monocytes % (Manual) (2-11) % Metamyelocytes % % Myelocytes % % Abs Neuts (Manual) (2.0-8.3) X10*3/uL Lymphocytes # (Manual) (1.2-4.9) X10*3/uL Monocytes # (Manual) (0.1-1.2) X10*3/uL Metamyelocytes # X10*3/uL Myelocytes # X10*/uL Nucleated RBCs (0-0) /100WBC Toxic Vacuolation Platelet Estimate (NORMAL) Large Platelets Plt Morphology Comment RBC Morphology Polychromasia /OIF Basophilic Stippling /OIF Tear Drop Cells /OIF VBG pH (7.32-7.43) VBG pCO2 mmHg VBG pO2 mmHg VBG HCO3 (22-26) mmol/L VBG O2 Saturation % VBG Base Excess mmol/L Sodium (135-145) mmol/L Potassium (3.3-5.1) mmol/L Chloride (96-108) mmol/L Carbon Dioxide (22-29) mmol/L Anion Gap (12-20) BUN (9-16) mg/dL Creatinine (0.5-1.4) mg/dL Estim Creat Clear Calc Estimated GFR POC Glucose (60-115) mg/dL Random Glucose (60-115) mg/dL Lactic Acid 4.3 H* (0.5-2.0) mmol/L Lactic Acid Fup @ 2Hr (0.5-2.0) mmol/L Calcium (8.4-10.2) mg/dL Total Bilirubin (0.0-1.0) mg/dL AST (5-37) U/L ALT (0-40) U/L Alkaline Phosphatase (39-117) U/L Troponin I High Sens 14.2 (<3.5-35.0) ng/L Total Protein (6.5-8.0) g/dL Albumin (3.5-5.0) g/dL Lipase (8-78) U/L Urine Color Urine Appearance Urine pH (5.0-8.0) Ur Specific [place] (1.005-1.025) Urine Protein (NEG-TRACE) MG/DL Urine Glucose (UA) (NEG) MG/DL Urine Ketones (NEG) MG/DL Urine Blood (NEG) Urine Nitrite (NEG) Ur Leukocyte Esterase (NEG) Urine Opiates Screen (Not Detect) Urine Fentanyl Screen (Not Detect) Ur Barbiturates Screen (Not Detect) Ur Phencyclidine Scrn (Not Detect) Ur Amphetamines Screen (Not Detect) U Benzodiazepines Scrn (Not Detect) Urine Cocaine Screen (Not Detect) U Marijuana (THC) Screen (Not Detect) Ethyl Alcohol < 10 mg/dL Acetone, Qual (Negative) COVID-19 (ELBA) (Negative) COVID-19 Clin Com 01/11/21 01/11/21 01/11/21 Range/Units 01:14 01:20 02:47 WBC (4.8-10.8) X10*3/uL RBC (4.60-5.80) X10*6/uL Hgb (14.0-18.0) g/dl Hct (42.0-52.0) % MCV (80.0-98.0) fL MCH (27.0-33.0) pg MCHC (31.0-36.0) g/dl RDW (11.0-16.0) % Plt Count MPV Immature Gran % (Auto) Neut % (Auto) Lymph % (Auto) [place] % (Auto) Eos % (Auto) Baso % (Auto) Lymph # (Auto) [place] # (Auto) Eos # (Auto) Baso # (Auto) Abs Immat Gran (auto) Absolute Neuts (auto) Absolute Nucleated RBC (0.0-0.012) X10*3/uL Nucleated RBC % (auto) (0.0-0.2) /100WBC Neutrophils % (Manual) (45-73) % Band Neutrophils % (3-5) % Lymphocytes % (Manual) (20-40) % Monocytes % (Manual) (2-11) % Metamyelocytes % % Myelocytes % % Abs Neuts (Manual) (2.0-8.3) X10*3/uL Lymphocytes # (Manual) (1.2-4.9) X10*3/uL Monocytes # (Manual) (0.1-1.2) X10*3/uL Metamyelocytes # X10*3/uL Myelocytes # X10*/uL Nucleated RBCs (0-0) /100WBC Toxic Vacuolation Platelet Estimate (NORMAL) Large Platelets Plt Morphology Comment RBC Morphology Polychromasia /OIF Basophilic Stippling /OIF Tear Drop Cells /OIF VBG pH 7.18 L* (7.32-7.43) VBG pCO2 74 mmHg VBG pO2 40 mmHg VBG HCO3 28 H (22-26) mmol/L VBG O2 Saturation 51.0 % VBG Base Excess -1.9 mmol/L Sodium 145 (135-145) mmol/L Potassium 4.8 (3.3-5.1) mmol/L Chloride 110 H (96-108) mmol/L Carbon Dioxide 25 (22-29) mmol/L Anion Gap 15 (12-20) BUN 27 H (9-16) mg/dL Creatinine 1.06 (0.5-1.4) mg/dL Estim Creat Clear Calc 98.0 Estimated GFR > 60 POC Glucose (60-115) mg/dL Random Glucose 145 H D (60-115) mg/dL Lactic Acid (0.5-2.0) mmol/L Lactic Acid Fup @ 2Hr (0.5-2.0) mmol/L Calcium 8.8 D (8.4-10.2) mg/dL Total Bilirubin 0.2 (0.0-1.0) mg/dL AST 44 H (5-37) U/L ALT 63 H (0-40) U/L Alkaline Phosphatase 72 D (39-117) U/L Troponin I High Sens (<3.5-35.0) ng/L Total Protein 6.3 L (6.5-8.0) g/dL Albumin 3.7 (3.5-5.0) g/dL Lipase (8-78) U/L Urine Color Urine Appearance Urine pH (5.0-8.0) Ur Specific [place] (1.005-1.025) Urine Protein (NEG-TRACE) MG/DL Urine Glucose (UA) (NEG) MG/DL Urine Ketones (NEG) MG/DL Urine Blood (NEG) Urine Nitrite (NEG) Ur Leukocyte Esterase (NEG) Urine Opiates Screen (Not Detect) Urine Fentanyl Screen (Not Detect) Ur Barbiturates Screen (Not Detect) Ur Phencyclidine Scrn (Not Detect) Ur Amphetamines Screen (Not Detect) U Benzodiazepines Scrn (Not Detect) Urine Cocaine Screen (Not Detect) U Marijuana (THC) Screen (Not Detect) Ethyl Alcohol mg/dL Acetone, Qual (Negative) COVID-19 (ELBA) Negative (Negative) COVID-19 Clin Com See Note 01/11/21 01/11/21 01/11/21 Range/Units 02:47 02:50 03:53 WBC (4.8-10.8) X10*3/uL RBC (4.60-5.80) X10*6/uL Hgb (14.0-18.0) g/dl Hct (42.0-52.0) % MCV (80.0-98.0) fL MCH (27.0-33.0) pg MCHC (31.0-36.0) g/dl RDW (11.0-16.0) % Plt Count MPV Immature Gran % (Auto) Neut % (Auto) Lymph % (Auto) [place] % (Auto) Eos % (Auto) Baso % (Auto) Lymph # (Auto) [place] # (Auto) Eos # (Auto) Baso # (Auto) Abs Immat Gran (auto) Absolute Neuts (auto) Absolute Nucleated RBC (0.0-0.012) X10*3/uL Nucleated RBC % (auto) (0.0-0.2) /100WBC Neutrophils % (Manual) (45-73) % Band Neutrophils % (3-5) % Lymphocytes % (Manual) (20-40) % Monocytes % (Manual) (2-11) % Metamyelocytes % % Myelocytes % % Abs Neuts (Manual) (2.0-8.3) X10*3/uL Lymphocytes # (Manual) (1.2-4.9) X10*3/uL Monocytes # (Manual) (0.1-1.2) X10*3/uL Metamyelocytes # X10*3/uL Myelocytes # X10*/uL Nucleated RBCs (0-0) /100WBC Toxic Vacuolation Platelet Estimate (NORMAL) Large Platelets Plt Morphology Comment RBC Morphology Polychromasia /OIF Basophilic Stippling /OIF Tear Drop Cells /OIF VBG pH 7.22 L (7.32-7.43) VBG pCO2 70 mmHg VBG pO2 48 mmHg VBG HCO3 29 H (22-26) mmol/L VBG O2 Saturation 68.0 % VBG Base Excess -0.2 mmol/L Sodium (135-145) mmol/L Potassium (3.3-5.1) mmol/L Chloride (96-108) mmol/L Carbon Dioxide (22-29) mmol/L Anion Gap (12-20) BUN (9-16) mg/dL Creatinine (0.5-1.4) mg/dL Estim Creat Clear Calc Estimated GFR POC Glucose (60-115) mg/dL Random Glucose (60-115) mg/dL Lactic Acid 2.5 H* (0.5-2.0) mmol/L Lactic Acid Fup @ 2Hr (0.5-2.0) mmol/L Calcium (8.4-10.2) mg/dL Total Bilirubin (0.0-1.0) mg/dL AST (5-37) U/L ALT (0-40) U/L Alkaline Phosphatase (39-117) U/L Troponin I High Sens (<3.5-35.0) ng/L Total Protein (6.5-8.0) g/dL Albumin (3.5-5.0) g/dL Lipase (8-78) U/L Urine Color YELLOW Urine Appearance CLEAR Urine pH 6.0 (5.0-8.0) Ur Specific [place] >= 1.030 H (1.005-1.025) Urine Protein TRACE (NEG-TRACE) MG/DL Urine Glucose (UA) 500 H (NEG) MG/DL Urine Ketones NEG (NEG) MG/DL Urine Blood NEG (NEG) Urine Nitrite NEG (NEG) Ur Leukocyte Esterase NEG (NEG) Urine Opiates Screen (Not Detect) Urine Fentanyl Screen (Not Detect) Ur Barbiturates Screen (Not Detect) Ur Phencyclidine Scrn (Not Detect) Ur Amphetamines Screen (Not Detect) U Benzodiazepines Scrn (Not Detect) Urine Cocaine Screen (Not Detect) U Marijuana (THC) Screen (Not Detect) Ethyl Alcohol mg/dL Acetone, Qual (Negative) COVID-19 (EBLA) (Negative) COVID-19 Clin Com 01/11/21 01/11/21 01/11/21 Range/Units 03:53 03:58 03:59 WBC (4.8-10.8) X10*3/uL RBC (4.60-5.80) X10*6/uL Hgb (14.0-18.0) g/dl Hct (42.0-52.0) % MCV (80.0-98.0) fL MCH (27.0-33.0) pg MCHC (31.0-36.0) g/dl RDW (11.0-16.0) % Plt Count MPV Immature Gran % (Auto) Neut % (Auto) Lymph % (Auto) [place] % (Auto) Eos % (Auto) Baso % (Auto) Lymph # (Auto) [place] # (Auto) Eos # (Auto) Baso # (Auto) Abs Immat Gran (auto) Absolute Neuts (auto) Absolute Nucleated RBC (0.0-0.012) X10*3/uL Nucleated RBC % (auto) (0.0-0.2) /100WBC Neutrophils % (Manual) (45-73) % Band Neutrophils % (3-5) % Lymphocytes % (Manual) (20-40) % Monocytes % (Manual) (2-11) % Metamyelocytes % % Myelocytes % % Abs Neuts (Manual) (2.0-8.3) X10*3/uL Lymphocytes # (Manual) (1.2-4.9) X10*3/uL Monocytes # (Manual) (0.1-1.2) X10*3/uL Metamyelocytes # X10*3/uL Myelocytes # X10*/uL Nucleated RBCs (0-0) /100WBC Toxic Vacuolation Platelet Estimate (NORMAL) Large Platelets Plt Morphology Comment RBC Morphology Polychromasia /OIF Basophilic Stippling /OIF Tear Drop Cells /OIF VBG pH (7.32-7.43) VBG pCO2 mmHg VBG pO2 mmHg VBG HCO3 (22-26) mmol/L VBG O2 Saturation % VBG Base Excess mmol/L Sodium 144 (135-145) mmol/L Potassium 4.0 (3.3-5.1) mmol/L Chloride 111 H (96-108) mmol/L Carbon Dioxide 22 (22-29) mmol/L Anion Gap 15 (12-20) BUN 27 H (9-16) mg/dL Creatinine 0.91 (0.5-1.4) mg/dL Estim Creat Clear Calc 114.1 Estimated GFR > 60 POC Glucose (60-115) mg/dL Random Glucose 118 H (60-115) mg/dL Lactic Acid (0.5-2.0) mmol/L Lactic Acid Fup @ 2Hr 2.8 H* (0.5-2.0) mmol/L Calcium 8.6 (8.4-10.2) mg/dL Total Bilirubin 0.3 (0.0-1.0) mg/dL AST 39 H (5-37) U/L ALT 61 H (0-40) U/L Alkaline Phosphatase 68 (39-117) U/L Troponin I High Sens (<3.5-35.0) ng/L Total Protein 6.2 L (6.5-8.0) g/dL Albumin 3.7 (3.5-5.0) g/dL Lipase (8-78) U/L Urine Color Urine Appearance Urine pH (5.0-8.0) Ur Specific [place] (1.005-1.025) Urine Protein (NEG-TRACE) MG/DL Urine Glucose (UA) (NEG) MG/DL Urine Ketones (NEG) MG/DL Urine Blood (NEG) Urine Nitrite (NEG) Ur Leukocyte Esterase (NEG) Urine Opiates Screen POSITIVE H (Not Detect) Urine Fentanyl Screen POSITIVE H (Not Detect) Ur Barbiturates Screen Not Detected (Not Detect) Ur Phencyclidine Scrn Not Detected (Not Detect) Ur Amphetamines Screen Not Detected (Not Detect) U Benzodiazepines Scrn Not Detected (Not Detect) Urine Cocaine Screen Not Detected (Not Detect) U Marijuana (THC) Screen Not Detected (Not Detect) Ethyl Alcohol mg/dL Acetone, Qual (Negative) COVID-19 (ELBA) (Negative) COVID-19 Clin Com 01/11/21 Range/Units 04:01 WBC (4.8-10.8) X10*3/uL RBC (4.60-5.80) X10*6/uL Hgb (14.0-18.0) g/dl Hct (42.0-52.0) % MCV (80.0-98.0) fL MCH (27.0-33.0) pg MCHC (31.0-36.0) g/dl RDW (11.0-16.0) % Plt Count MPV Immature Gran % (Auto) Neut % (Auto) Lymph % (Auto) [place] % (Auto) Eos % (Auto) Baso % (Auto) Lymph # (Auto) [place] # (Auto) Eos # (Auto) Baso # (Auto) Abs Immat Gran (auto) Absolute Neuts (auto) Absolute Nucleated RBC (0.0-0.012) X10*3/uL Nucleated RBC % (auto) (0.0-0.2) /100WBC Neutrophils % (Manual) (45-73) % Band Neutrophils % (3-5) % Lymphocytes % (Manual) (20-40) % Monocytes % (Manual) (2-11) % Metamyelocytes % % Myelocytes % % Abs Neuts (Manual) (2.0-8.3) X10*3/uL Lymphocytes # (Manual) (1.2-4.9) X10*3/uL Monocytes # (Manual) (0.1-1.2) X10*3/uL Metamyelocytes # X10*3/uL Myelocytes # X10*/uL Nucleated RBCs (0-0) /100WBC Toxic Vacuolation Platelet Estimate (NORMAL) Large Platelets Plt Morphology Comment RBC Morphology Polychromasia /OIF Basophilic Stippling /OIF Tear Drop Cells /OIF VBG pH 7.28 L (7.32-7.43) VBG pCO2 52 mmHg VBG pO2 109 mmHg VBG HCO3 25 (22-26) mmol/L VBG O2 Saturation 98.0 % VBG Base Excess -2.4 mmol/L Sodium (135-145) mmol/L Potassium (3.3-5.1) mmol/L Chloride (96-108) mmol/L Carbon Dioxide (22-29) mmol/L Anion Gap (12-20) BUN (9-16) mg/dL Creatinine (0.5-1.4) mg/dL Estim Creat Clear Calc Estimated GFR POC Glucose (60-115) mg/dL Random Glucose (60-115) mg/dL Lactic Acid (0.5-2.0) mmol/L Lactic Acid Fup @ 2Hr (0.5-2.0) mmol/L Calcium (8.4-10.2) mg/dL Total Bilirubin (0.0-1.0) mg/dL AST (5-37) U/L ALT (0-40) U/L Alkaline Phosphatase (39-117) U/L Troponin I High Sens (<3.5-35.0) ng/L Total Protein (6.5-8.0) g/dL Albumin (3.5-5.0) g/dL Lipase (8-78) U/L Urine Color Urine Appearance Urine pH (5.0-8.0) Ur Specific [place] (1.005-1.025) Urine Protein (NEG-TRACE) MG/DL Urine Glucose (UA) (NEG) MG/DL Urine Ketones (NEG) MG/DL Urine Blood (NEG) Urine Nitrite (NEG) Ur Leukocyte Esterase (NEG) Urine Opiates Screen (Not Detect) Urine Fentanyl Screen (Not Detect) Ur Barbiturates Screen (Not Detect) Ur Phencyclidine Scrn (Not Detect) Ur Amphetamines Screen (Not Detect) U Benzodiazepines Scrn (Not Detect) Urine Cocaine Screen (Not Detect) U Marijuana (THC) Screen (Not Detect) Ethyl Alcohol mg/dL Acetone, Qual (Negative) COVID-19 (ELBA) (Negative) COVID-19 Clin Com ECG Data Attestation: I personally reviewed and interpreted this ECG as follows: Prior ECG tracings: available for review Interpretation: Normal sinus rhythm, HR-98, no STEMI, UT/QRS/QTC is within normal limits. Discharge Plan Discharge Clinical Impression: Unresponsive, Drug overdose, Hypoxic, Pulmonary edema Patient Disposition: Admitted As Inpatient Prescriptions: No Action prednisone 20 mg tablet 40 mg PO DAILY 5 Days Qty: 10 RF: 0 gabapentin 100 mg capsule 100 mg PO BID Qty: 30 RF: 0 acetaminophen [Tylenol Extra Strength] 500 mg tablet 500 mg PO Q6H PRN (Reason: pain or fever) Qty: 20 RF: 0 lidocaine [Lidoderm] 5 % adhesive patch,medicated 1 patch topical DAILY MDD remove after 12 hours PRN (Reason: pain) Qty: 30 RF: 0 naproxen 500 mg tablet 500 mg PO BID PRN (Reason: pain) 10 Days Qty: 20 RF: 0 cyclobenzaprine 5 mg tablet 5 mg PO Q8H PRN (Reason: pain (scale score 7-10)) 5 Days Qty: 14 RF: 0 atorvastatin 40 mg tablet 40 mg PO DAILY RF: 0 lisinopril-hydrochlorothiazide 20-25 mg tablet 1 tab PO DAILY RF: 0 melatonin 10 mg capsule 10 mg PO BEDTIME PRNRF: 0
--- NOTE | 2021-01-11 01:08 | ECG_ITS ---
Test Reason : SOB Blood Pressure : / mmHG Vent. Rate : 098 BPM Atrial Rate : 098 BPM P-R Int : 134 ms QRS Dur : 076 ms QT Int : 372 ms P-R-T Axes : 065 027 043 degrees QTc Int : 474 ms Normal sinus rhythm Normal ECG When compared with ECG of 28-DEC-2020 14:47, No significant change was found Referred By: Rebecca Gold Electronically Signed By:VIVIAN KOCH
[2021-01-11 01:21] LABS: Hematocrit 44.4 % (42.0-52.0); Hemoglobin 14.2 g/dl (14.0-18.0); Mean Corpuscular Hemoglobin 30.3 pg (27.0-33.0); Mean Corpuscular Volume 94.9 fL (80.0-98.0); NRBC Pct Auto 0.5 /100WBC (0.0-0.2); Red Blood Count 4.68 X10*6/uL (4.60-5.80); Red Cell Distribution Width 14.4 % (11.0-16.0)
[2021-01-11 01:22] LABS: VBG Base Excess -1.9 mmol/L; VBG HCO3 28 mmol/L (22-26); VBG pCO2 74 mmHg; VBG pH 7.18 (7.32-7.43); VBG pO2 40 mmHg
[2021-01-11 01:23] LABS: Venous Blood Gas Refer to POC result
[2021-01-11 01:28] LABS: WBC ABN SCTR FOR CBC 1
[2021-01-11 01:34] LABS: Ethanol < 10 mg/dL
[2021-01-11 01:40] LABS: Lactic Acid 4.3 mmol/L (0.5-2.0)
[2021-01-11 01:41] LABS: Alanine Aminotransferase 68 U/L (0-40); Albumin Level 4.2 g/dL (3.5-5.0); Alkaline Phosphatase 94 U/L (39-117); Anion Gap 23 (12-20); Aspartate Amino Transferase 56 U/L (5-37); Bilirubin Total 0.3 mg/dL (0.0-1.0); Blood Urea Nitrogen 29 mg/dL (9-16); Calcium 9.5 mg/dL (8.4-10.2); Carbon Dioxide 20 mmol/L (22-29); Chloride 103 mmol/L (96-108); Creatinine Clr Calc Pharmacy 70.2; Estimated Glomerular Filt Rate 51; Glucose Random 372 mg/dL (60-115); Lipase 33 U/L (8-78); Potassium 5.6 mmol/L (3.3-5.1); Sodium 140 mmol/L (135-145); Total Protein 7.1 g/dL (6.5-8.0)
[2021-01-11 01:53] LABS: Band Neutrophils Percent 4 % (3-5); Lymphocytes Percent Manual 20 % (20-40); Metamyelocytes Percent 9 %; Monocytes Percent Manual 1 % (2-11); Myelocytes Percent 2 %; Neutrophils Percent Manual 64 % (45-73); Nucleated Red Blood Cells 2 /100WBC (0-0)
[2021-01-11 01:56] LABS: Large Platelet PRESENT; Platelet Estimate NORMAL (NORMAL); Platelet Morphology Comment NORMAL; RBC Morphology NORMAL
[2021-01-11 01:57] LABS: Tear Drop Cells 1+ (0-2) /OIF
[2021-01-11 01:58] LABS: Basophilic Stippling 1+ (0-2) /OIF; Polychromasia 1+ (0-2) /OIF; Toxic Vacuolation PRESENT
[2021-01-11 01:59] LABS: Lymphocytes Absolute Manual 5.2 X10*3/uL (1.2-4.9); Metamyelocytes Absolute 2.4 X10*3/uL; Monocytes Absolute Manual 0.3 X10*3/uL (0.1-1.2); Myelocytes Absolute 0.5 X10*/uL; Neutrophils Absolute Manual 17.8 X10*3/uL (2.0-8.3); White Blood Count 26.2 X10*3/uL (4.8-10.8)
[2021-01-11] MEDS: 0.9 % Sodium Chloride 2,052 ML 2052 ML IVCONT (02:01)
[2021-01-11 02:06] LABS: COVID-19 Test Negative (Negative)
[2021-01-11 02:11] LABS: Acetone, serum QL Negative (Negative)
[2021-01-11] MEDS: Albuterol Sulfate (0.083%) 2.5 MG/3 ML VIAL.NEB 5 MG INHALE (02:30)
[2021-01-11 02:56] LABS: Venous Blood Gas Refer to POC result
[2021-01-11 02:57] LABS: VBG Base Excess -0.2 mmol/L; VBG HCO3 29 mmol/L (22-26); VBG pCO2 70 mmHg; VBG pH 7.22 (7.32-7.43); VBG pO2 48 mmHg
[2021-01-11 03:14] LABS: Alanine Aminotransferase 63 U/L (0-40); Albumin Level 3.7 g/dL (3.5-5.0); Alkaline Phosphatase 72 U/L (39-117); Anion Gap 15 (12-20); Aspartate Amino Transferase 44 U/L (5-37); Bilirubin Total 0.2 mg/dL (0.0-1.0); Blood Urea Nitrogen 27 mg/dL (9-16); Calcium 8.8 mg/dL (8.4-10.2); Carbon Dioxide 25 mmol/L (22-29); Chloride 110 mmol/L (96-108); Estimated Glomerular Filt Rate > 60; Glucose Random 145 mg/dL (60-115); Lactic Acid 2.5 mmol/L (0.5-2.0); Potassium 4.8 mmol/L (3.3-5.1); Sodium 145 mmol/L (135-145); Total Protein 6.3 g/dL (6.5-8.0)
[2021-01-11] MEDS: Piperacillin Sodium/Tazobactam 3.375 GM in 0.9 % Sodium Chloride 50 ML IV (03:15)
--- NOTE | 2021-01-11 03:17 | PC.NURSE ---
Pt to and from CT w/ this RN and Sohail RT; attached to portable monitor, tolerated scan w/o incident. Pt waking to voice at this time, endorses taking only prescribed meds and prescribed doses CRITICAL CARE NURSE
[2021-01-11 03:18] LABS: Reflex Lactate? Lactic Acid Added
[2021-01-11 04:07] LABS: Venous Blood Gas Refer to POC result
[2021-01-11 04:08] LABS: VBG Base Excess -2.4 mmol/L; VBG HCO3 25 mmol/L (22-26); VBG pCO2 52 mmHg; VBG pH 7.28 (7.32-7.43); VBG pO2 109 mmHg
[2021-01-11 04:10] LABS: Appearance Urine CLEAR; Color Urine YELLOW; Glucose Urine UA 500 MG/DL (NEG); Leukocyte Esterase Urine NEG (NEG); Nitrite Urine NEG (NEG); Specific Gravity - Urine >= 1.030 (1.005-1.025); Urine Blood NEG (NEG); Urine Ketones NEG (NEG); Urine Protein TRACE MG/DL (NEG-TRACE)
[2021-01-11 04:21] LABS: ~Lactic Acid-LAB USE ONLY 2.8 mmol/L (0.5-2.0)
[2021-01-11 04:24] LABS: Alanine Aminotransferase 61 U/L (0-40); Albumin Level 3.7 g/dL (3.5-5.0); Alkaline Phosphatase 68 U/L (39-117); Anion Gap 15 (12-20); Aspartate Amino Transferase 39 U/L (5-37); Bilirubin Total 0.3 mg/dL (0.0-1.0); Blood Urea Nitrogen 27 mg/dL (9-16); Calcium 8.6 mg/dL (8.4-10.2); Carbon Dioxide 22 mmol/L (22-29); Chloride 111 mmol/L (96-108); Creatinine Clr Calc Pharmacy 114.1; Estimated Glomerular Filt Rate > 60; Glucose Random 118 mg/dL (60-115); Sodium 144 mmol/L (135-145); Total Protein 6.2 g/dL (6.5-8.0)
[2021-01-11 04:29] LABS: Troponin-I High Sensitivity 14.2 ng/L (<3.5-35.0)
[2021-01-11] MEDS: vancomycin HCL 1,000 MG in 0.9 % Sodium Chloride 250 ML 270 MG IV (04:30)
[2021-01-11 04:44] LABS: Amphetamine Screen Urine Not Detected (Not Detect); Barbiturates, Urine Not Detected (Not Detect); Benzodiazepines Screen Urine Not Detected (Not Detect); Cannabinoid Screen Urine Not Detected (Not Detect); Cocaine Screen Urine Not Detected (Not Detect); Fentanyl, urine POSITIVE (Not Detect); Opiate Screen Urine POSITIVE (Not Detect); Phencyclidine Screen Urine Not Detected (Not Detect)
[2021-01-11 04:52] LABS: Reflex Lactate? Lactic Acid Added
[2021-01-11 05:43] LABS: Venous Blood Gas Refer to POC result
[2021-01-11 05:44] LABS: VBG HCO3 27 mmol/L (22-26); VBG pCO2 60 mmHg; VBG pH 7.26 (7.32-7.43); VBG pO2 50 mmHg
[2021-01-11 06:03] LABS: Reflex Lactate? 2 Y
[2021-01-11] MEDS: Naloxone HCl Nasal 4 MG SPRAY NOSTRILALT (06:27)
[2021-01-11] MEDS: ondansetron HCL 4 MG/2 ML VIAL IVPUSH (06:28)
--- NOTE | 2021-01-11 07:04 | CA_ITS ---
Transthoracic Echocardiogram Patient (Last, First, Middle): Matt Wells, Gender: Male Date of : 1970 Age: 50 Procedure Date: 01/11/2021 Procedure Type: Transthoracic Echocardiogram Location: ER Height: 170.18 cm Weight: 100.7 kg BSA: 2.11 m2 Heart Rate: bpm BP: 131 / 78 mmHg [employer]otive [employer]als[employer]: Referring MD: Rebecca Gold MD Symptoms: Pulmonary edema Study Quality: Fair ECG Rhythm: Sinus Conclusions: - The left ventricular systolic function is low normal. The calculated ejection fraction is 53% by biplane method. - No obvious valvular pathology seen on this study. Findings Left Ventricle Normal left ventricular cavity size. There is normal left ventricular wall thickness. The left ventricular systolic function is low normal. The calculated ejection fraction is 53% by biplane method. There is no evidence of regional wall motion abnormalities. Diastolic function is normal for age. E/E prime ratio is <8, consistent with normal filling pressures. Right Ventricle Normal right ventricular cavity size and systolic function. Atria The left atrium is mildly dilated. The right atrium is normal in size. Aortic Valve The aortic valve was not well visualized. The aortic valve structure and function is likely normal. There is no aortic valve regurgitation. Mitral Valve The mitral valve appears normal. There is trace mitral valve regurgitation. There is no mitral valve stenosis. Pulmonic Valve The pulmonic valve was not well visualized. Tricuspid Valve Normal tricuspid valve structure. There is trace tricuspid valve regurgitation. The pulmonary artery systolic pressure is normal. Great Vessels The aortic annulus, sinuses of valsalva, and asc aorta are normal in size. Venous The inferior vena cava is normal in size and collapses greater than 50% with inspiration. Pericardium/Pleural There is no evidence of pericardial effusion. Prior Study Comparison No prior study available for comparison. Recommendations, Care & Conclusions No obvious valvular pathology seen on this study. Measurements 2D Linear Measurements IVSd: 1.05 0.6-0.9/0.6-1.0 cm LVIDd: 4.96 3.9-5.3/4.2-5.9 cm LVIDd Index: 2.35 2.4-3.2/2.2-3.1 cm/m2 LVIDs: 2.95 2.0-3.6 cm LVPWd: 1.07 0.7-1.1 cm Ao Root: 3.20 2.1-3.5 cm LA Diam: 4.50 2.7-3.8/3.0-4.0 cm LAIDs Index: 2.13 1.5-2.3 cm/m2 LV Mass: 242.19 67-162/88-224 g LV Mass Index: 114.78 43-95/49-115 g/m2 LVOT Diam: 2.10 3.0+(-)1.3 cm 2D Systolic Function EF 4C: 53.30 >55% EF 2C: 52.90 >55% EF BiP: 52.70 >55% Mitral Valve MV Pk E: 0.99 MV PK A: 0.45 MV Decel Time: 215.00 E/A: 2.20 E'Lateral: 17.10 E'Medial: 12.70 E/E' Med: 7.80 E/E' Lat: 5.80 PHT: 63.00 MVA PHT: 3.49 Decel [place]: 4.60 Aortic Valve AoV Pk [place]: 1.48 AoV Mn [place]: 0.92 AoV VTI: 0.23 AoV Pk Grad: 9.00 Aov Mn Grad: 4.00 EMILY Cont.VTI: 2.84 LVOT LVOT Pk [place]: 1.14 LVOT Mn [place]: 0.72 LVOT VTI: 0.19 LVOT Pk Grad: 5.00 LVOT Mn Grad: 2.00 LVOT Diam: 2.10 LVOT Area: 3.46 Diastolic Function MV Pk E: 0.99 MV Pk A: 0.45 E/A: 2.20 E'Medial: 12.70 E/E' Med: 7.80 E' Laterial: 17.10 E/E' Lat: 5.80 Right Ventricle TAPSE (mm): 25.00 TVS' [place]: 14.00 Tricuspid Valve TR Pk [place]: 2.40 TR Pk Grad: 23.00 Great Vessels Aorta Ao Root-2D: 3.20 2.0-3.7 cm Ao Asc: 3.20 2.1-3.4 cm Pulmonary Valve PV Pk [place]: 1.08 Peak PV Grad: 5.00 Updated in Other Vendor System with Status of Final Jere Lilly MD electronically signed on 01/11/2021 4:17:03 PM with status of Final
[2021-01-11] MEDS: methylPREDNISolone Sod Succ 1,000 MG in 0.9 % Sodium Chloride 50 ML 66 MG IV (08:57)
[2021-01-11 09:03] LABS: ~Lactic Acid-LAB USE ONLY 4.9 mmol/L (0.5-2.0)
--- NOTE | 2021-01-11 10:37 | PHA.MEDREC ---
Pharmacy Consult ? Medication Reconciliation Pharmacy has completed the medication reconciliation. Patient reports he is taking HBP and cholesterol medications. He last filled atorvastatin and lisinopril-HCTZ in for a 30 days supply. He is unsure if he is taking escitalopram. Lacie Sher, PharmD
--- NOTE | 2021-01-11 11:10 | PC.NURSE ---
echo at bedside
[2021-01-11 12:15] LABS: ABG Base Excess -4.6 mmol/L; ABG HCO3 21 mmol/L (22-26); ABG pCO2 44 mmHg (32-45); ABG pH 7.29 (7.35-7.45); ABG pO2 66 mmHg (83-108)
[2021-01-11 12:21] LABS: ABG Refer to POC result
[2021-01-11 14:23] LABS: Lactic Acid 7.5 mmol/L (0.5-2.0)
--- NOTE | 2021-01-11 14:28 | PM.IMHP ---
History of Present Illness Date of Service: 01/11/21 Chief Complaint: Unresponsive, Difficulty breathing A 50 years old male with PMH of drug abuse, hypertension, depression among others who presented to the hospital via EMS as he was found unresponsive. The patient received intranasal Narcan for history of previous over does and was hypoxic at time of presentation. Upon waking up the patient reported he had been abusing heroin. Denies any pain, fever or chills. EMS reported multiple episodes of vomiting at times hospital. The patient was plan to go to the ICU for close monitoring as he required BiPAP and high-flow oxygen the emergency for acute pulmonary edema. Evaluated by intensive care team who give the patient 1000 mg of methylprednisone. Repeated VBG showed improvement in CO2 retention. ICU team decided not to admit the patient to intensive care and instead admit him to hospitalist team in medical floor. CXR and CT scan showing findings suggestive of fluid overload. Home Admitted for further evaluation and treatment. Review of Systems Review of Systems: No fever, chills but reports feeling very weak and tired No chest pain, palpitation Shortness of breath, coughing No abdominal pain, nausea or vomiting No urinary symptoms No any rash or wounds PMFSH Medical History COVID-19 Depression High cholesterol HTN (hypertension) HTN (hypertension) Intentional weight loss Sudden hearing loss Family History Father Pancreatic cancer Mother Diabetes Surgical History No history of previous surgery Social History Alcohol intake: never Patient Tobacco Use Status: Never used Tobacco Use of substances other than those prescribed or required for medical reasons: No Advance Directives: No Advance Directives Information Provided: Yes Meds Allergies Allergy/AdvReac Type Severity Reaction Status Date / Time kiwi [KIWI] Allergy Unknown SWOLLEN Verified 01/11/21 01:19 LIPS Active Medications: Current Medications Acetaminophen (Acetaminophen 325 Mg Tablet) 650 mg PO Q6H PRN PRN Reason: Pain, Mild (Pain Scale 1-3) Albuterol Sulfate (Albuterol Sulfate 90 Mcg 8 Gm Inhaler) 4 puff INHALE RQ6H WHILE AWAKE [facility] Atorvastatin Calcium (Atorvastatin Calcium 40 Mg Tablet) 40 mg PO DAILY [facility] Cyclobenzaprine HCl (Cyclobenzaprine Hcl 5 Mg Tablet) 5 mg PO Q8H PRN PRN Reason: pain (scale score 7-10) Enoxaparin Sodium (Enoxaparin Sodium 40 Mg/0.4 Ml Syringe) 40 mg SUBCUT Q24H [facility] Gabapentin (Gabapentin 100 Mg Capsule) 100 mg PO BID [facility] Lisinopril (Lisinopril 20 Mg Tablet) 20 mg PO DAILY [facility]; Protocol Ondansetron HCl (Ondansetron Hcl 4 Mg/2 Ml Vial) 4 mg IVPUSH Q8H PRN PRN Reason: Nausea and Vomiting Pramipexole Dihydrochloride (Pramipexole Di-Hcl 0.25 Mg Tablet) 0.25 mg PO BEDTIME [facility] Prednisone (Prednisone 20 Mg Tablet) 40 mg PO DAILY [facility] Sodium Chloride (0.9 % Sodium Chloride Flush 3 Ml Syringe) 3 ml IVFLUSH QSHIFT [facility] Home Medications Medication Instructions Recorded Confirmed Last Taken Type atorvastatin 40 mg tablet 40 mg PO DAILY 12/16/19 01/11/21 Unknown History lisinopril 20 1 tab PO DAILY 12/16/19 01/11/21 Unknown History mg-hydrochlorothiazide 25 mg tablet albuterol sulfate 90 mcg/actuation 2 puff PO QID 01/11/21 01/11/21 Unknown History aerosol inhaler (ProAir HFA) fluticasone propionate 110 2 puff PO BID 01/11/21 01/11/21 Unknown History mcg/actuation HFA aerosol inhaler (Flovent HFA) morphine 15 mg immediate release 1 tab PO Q6H PRN 01/11/21 01/11/21 Unknown History tablet pramipexole 0.25 mg tablet 1 tab PO BEDTIME 01/11/21 01/11/21 Unknown History Physical Exam Vital Signs and Narrative: Vital Signs: Last Vital Signs Temp 97.6 F 01/11/21 12:20 Pulse 89 01/11/21 12:20 Resp 24 H 01/11/21 12:20 BP 113/62 01/11/21 12:20 Pulse Ox 89 L 01/11/21 12:20 Oxygen Flow Rate 6 01/11/21 01:07 BMI result Body Mass Index 33.7 Const: Other: Constitutional : Alert, oriented, in mild respiratory distress, on oxygen supplement Neck : Normal inspection, Supple Cardiovascular : RRR, S1 S2, no lower extremity edema Respiratory : Decreased bilateral air entry, no crackles, fine scattered wheezes Gastrointestinal: soft, lax, Normal bowel sounds, Non tender Skin : Warm, Dry Neurological : Alert & oriented x3, No focal deficit Results Labs CBC and Chem 7: 01/11/21 01:10 01/11/21 03:59 Labs: Laboratory Results - last 24 hr 01/11/21 01/11/21 01/11/21 01:01 01:10 01:10 MCV 94.9 MCH 30.3 MCHC 32.0 RDW 14.4 Plt Count [employer]IEF [employer]ISTER MPV Not Reportable Immature Gran % (Auto) Cancelled Neut % (Auto) Cancelled Lymph % (Auto) Cancelled [place] % (Auto) Cancelled Eos % (Auto) Cancelled Baso % (Auto) Cancelled Lymph # (Auto) Cancelled [place] # (Auto) Cancelled Eos # (Auto) Cancelled Baso # (Auto) Cancelled Abs Immat Gran (auto) Cancelled Absolute Neuts (auto) Cancelled Absolute Nucleated RBC 0.120 H Nucleated RBC % (auto) 0.5 H Neutrophils % (Manual) 64 Band Neutrophils % 4 Lymphocytes % (Manual) 20 Monocytes % (Manual) 1 L Metamyelocytes % 9 Myelocytes % 2 Abs Neuts (Manual) 17.8 H Lymphocytes # (Manual) 5.2 H Monocytes # (Manual) 0.3 Metamyelocytes # 2.4 Myelocytes # 0.5 Nucleated RBCs 2 H Toxic Vacuolation PRESENT Platelet Estimate NORMAL Large Platelets PRESENT Plt Morphology Comment NORMAL RBC Morphology NORMAL Polychromasia 1+ (0-2) Basophilic Stippling 1+ (0-2) Tear Drop Cells 1+ (0-2) Smear Path Review SEE NOTE O2 Saturation ABG pH at Pt Temp ABG pCO2 at Pt Temp ABG pO2 at Pt Temp ABG HCO3 ABG Base Excess (Actual) VBG pH VBG pCO2 VBG pO2 VBG HCO3 VBG O2 Saturation VBG Base Excess Anion Gap 23 H Estim Creat Clear Calc 70.2 Estimated GFR 51 POC Glucose 333 H Random Glucose 372 H* Lactic Acid Lactic Acid Fup @ 2Hr Lactic Acid Fup @ 4Hr Calcium 9.5 Total Bilirubin 0.3 AST 56 H ALT 68 H Alkaline Phosphatase 94 Troponin I High Sens Total Protein 7.1 Albumin 4.2 Lipase 33 Urine Color Urine Appearance Urine pH Ur Specific [place] Urine Protein Urine Glucose (UA) Urine Ketones Urine Blood Urine Nitrite Ur Leukocyte Esterase Urine Opiates Screen Urine Fentanyl Screen Ur Barbiturates Screen Ur Phencyclidine Scrn Ur Amphetamines Screen U Benzodiazepines Scrn Urine Cocaine Screen U Marijuana (THC) Screen Ethyl Alcohol Acetone, Qual Negative COVID-19 (ELBA) COVID-19 [facility] Com 01/11/21 01/11/21 01/11/21 01:10 01:10 01:10 MCV MCH MCHC RDW Plt Count MPV Immature Gran % (Auto) Neut % (Auto) Lymph % (Auto) [place] % (Auto) Eos % (Auto) Baso % (Auto) Lymph # (Auto) [place] # (Auto) Eos # (Auto) Baso # (Auto) Abs Immat Gran (auto) Absolute Neuts (auto) Absolute Nucleated RBC Nucleated RBC % (auto) Neutrophils % (Manual) Band Neutrophils % Lymphocytes % (Manual) Monocytes % (Manual) Metamyelocytes % Myelocytes % Abs Neuts (Manual) Lymphocytes # (Manual) Monocytes # (Manual) Metamyelocytes # Myelocytes # Nucleated RBCs Toxic Vacuolation Platelet Estimate Large Platelets Plt Morphology Comment RBC Morphology Polychromasia Basophilic Stippling Tear Drop Cells Smear Path Review O2 Saturation ABG pH at Pt Temp ABG pCO2 at Pt Temp ABG pO2 at Pt Temp ABG HCO3 ABG Base Excess (Actual) VBG pH VBG pCO2 VBG pO2 VBG HCO3 VBG O2 Saturation VBG Base Excess Anion Gap Estim Creat Clear Calc Estimated GFR POC Glucose Random Glucose Lactic Acid 4.3 H* Lactic Acid Fup @ 2Hr Lactic Acid Fup @ 4Hr Calcium Total Bilirubin AST ALT Alkaline Phosphatase Troponin I High Sens 14.2 Total Protein Albumin Lipase Urine Color Urine Appearance Urine pH Ur Specific [place] Urine Protein Urine Glucose (UA) Urine Ketones Urine Blood Urine Nitrite Ur Leukocyte Esterase Urine Opiates Screen Urine Fentanyl Screen Ur Barbiturates Screen Ur Phencyclidine Scrn Ur Amphetamines Screen U Benzodiazepines Scrn Urine Cocaine Screen U Marijuana (THC) Screen Ethyl Alcohol < 10 Acetone, Qual COVID-19 (ELBA) COVID-19 Clin Com 01/11/21 01/11/21 01/11/21 01:14 01:20 02:47 MCV MCH MCHC RDW Plt Count MPV Immature Gran % (Auto) Neut % (Auto) Lymph % (Auto) [place] % (Auto) Eos % (Auto) Baso % (Auto) Lymph # (Auto) [place] # (Auto) Eos # (Auto) Baso # (Auto) Abs Immat Gran (auto) Absolute Neuts (auto) Absolute Nucleated RBC Nucleated RBC % (auto) Neutrophils % (Manual) Band Neutrophils % Lymphocytes % (Manual) Monocytes % (Manual) Metamyelocytes % Myelocytes % Abs Neuts (Manual) Lymphocytes # (Manual) Monocytes # (Manual) Metamyelocytes # Myelocytes # Nucleated RBCs Toxic Vacuolation Platelet Estimate Large Platelets Plt Morphology Comment RBC Morphology Polychromasia Basophilic Stippling Tear Drop Cells Smear Path Review O2 Saturation ABG pH at Pt Temp ABG pCO2 at Pt Temp ABG pO2 at Pt Temp ABG HCO3 ABG Base Excess (Actual) VBG pH 7.18 L* VBG pCO2 74 VBG pO2 40 VBG HCO3 28 H VBG O2 Saturation 51.0 VBG Base Excess -1.9 Anion Gap 15 Estim Creat Clear Calc 98.0 Estimated GFR > 60 POC Glucose Random Glucose 145 H D Lactic Acid Lactic Acid Fup @ 2Hr Lactic Acid Fup @ 4Hr Calcium 8.8 D Total Bilirubin 0.2 AST 44 H ALT 63 H Alkaline Phosphatase 72 D Troponin I High Sens Total Protein 6.3 L Albumin 3.7 Lipase Urine Color Urine Appearance Urine pH Ur Specific [place] Urine Protein Urine Glucose (UA) Urine Ketones Urine Blood Urine Nitrite Ur Leukocyte Esterase Urine Opiates Screen Urine Fentanyl Screen Ur Barbiturates Screen Ur Phencyclidine Scrn Ur Amphetamines Screen U Benzodiazepines Scrn Urine Cocaine Screen U Marijuana (THC) Screen Ethyl Alcohol Acetone, Qual COVID-19 (ELBA) Negative COVID-19 Clin Com See Note 01/11/21 01/11/21 01/11/21 02:47 02:50 03:53 MCV MCH MCHC RDW Plt Count MPV Immature Gran % (Auto) Neut % (Auto) Lymph % (Auto) [place] % (Auto) Eos % (Auto) Baso % (Auto) Lymph # (Auto) [place] # (Auto) Eos # (Auto) Baso # (Auto) Abs Immat Gran (auto) Absolute Neuts (auto) Absolute Nucleated RBC Nucleated RBC % (auto) Neutrophils % (Manual) Band Neutrophils % Lymphocytes % (Manual) Monocytes % (Manual) Metamyelocytes % Myelocytes % Abs Neuts (Manual) Lymphocytes # (Manual) Monocytes # (Manual) Metamyelocytes # Myelocytes # Nucleated RBCs Toxic Vacuolation Platelet Estimate Large Platelets Plt Morphology Comment RBC Morphology Polychromasia Basophilic Stippling Tear Drop Cells Smear Path Review O2 Saturation ABG pH at Pt Temp ABG pCO2 at Pt Temp ABG pO2 at Pt Temp ABG HCO3 ABG Base Excess (Actual) VBG pH 7.22 L VBG pCO2 70 VBG pO2 48 VBG HCO3 29 H VBG O2 Saturation 68.0 VBG Base Excess -0.2 Anion Gap Estim Creat Clear Calc Estimated GFR POC Glucose Random Glucose Lactic Acid 2.5 H* Lactic Acid Fup @ 2Hr Lactic Acid Fup @ 4Hr Calcium Total Bilirubin AST ALT Alkaline Phosphatase Troponin I High Sens Total Protein Albumin Lipase Urine Color YELLOW Urine Appearance CLEAR Urine pH 6.0 Ur Specific [place] >= 1.030 H Urine Protein TRACE Urine Glucose (UA) 500 H Urine Ketones NEG Urine Blood NEG Urine Nitrite NEG Ur Leukocyte Esterase NEG Urine Opiates Screen Urine Fentanyl Screen Ur Barbiturates Screen Ur Phencyclidine Scrn Ur Amphetamines Screen U Benzodiazepines Scrn Urine Cocaine Screen U Marijuana (THC) Screen Ethyl Alcohol Acetone, Qual COVID-19 ([facility]) COVID-19 Clin Com 01/11/21 01/11/21 01/11/21 03:53 03:58 03:59 MCV MCH MCHC RDW Plt Count MPV Immature Gran % (Auto) Neut % (Auto) Lymph % (Auto) [place] % (Auto) Eos % (Auto) Baso % (Auto) Lymph # (Auto) [place] # (Auto) Eos # (Auto) Baso # (Auto) Abs Immat Gran (auto) Absolute Neuts (auto) Absolute Nucleated RBC Nucleated RBC % (auto) Neutrophils % (Manual) Band Neutrophils % Lymphocytes % (Manual) Monocytes % (Manual) Metamyelocytes % Myelocytes % Abs Neuts (Manual) Lymphocytes # (Manual) Monocytes # (Manual) Metamyelocytes # Myelocytes # Nucleated RBCs Toxic Vacuolation Platelet Estimate Large Platelets Plt Morphology Comment RBC Morphology Polychromasia Basophilic Stippling Tear Drop Cells Smear Path Review O2 Saturation ABG pH at Pt Temp ABG pCO2 at Pt Temp ABG pO2 at Pt Temp ABG HCO3 ABG Base Excess (Actual) VBG pH VBG pCO2 VBG pO2 VBG HCO3 VBG O2 Saturation VBG Base Excess Anion Gap 15 Estim Creat Clear Calc 114.1 Estimated GFR > 60 POC Glucose Random Glucose 118 H Lactic Acid Lactic Acid Fup @ 2Hr 2.8 H* Lactic Acid Fup @ 4Hr Calcium 8.6 Total Bilirubin 0.3 AST 39 H ALT 61 H Alkaline Phosphatase 68 Troponin I High Sens Total Protein 6.2 L Albumin 3.7 Lipase Urine Color Urine Appearance Urine pH Ur Specific [place] Urine Protein Urine Glucose (UA) Urine Ketones Urine Blood Urine Nitrite Ur Leukocyte Esterase Urine Opiates Screen POSITIVE H Urine Fentanyl Screen POSITIVE H Ur Barbiturates Screen Not Detected Ur Phencyclidine Scrn Not Detected Ur Amphetamines Screen Not Detected U Benzodiazepines Scrn Not Detected Urine Cocaine Screen Not Detected U Marijuana (THC) Screen Not Detected Ethyl Alcohol Acetone, Qual COVID-19 (ELBA) COVID-19 Clin Com 01/11/21 01/11/21 01/11/21 04:01 05:37 08:37 MCV MCH MCHC RDW Plt Count MPV Immature Gran % (Auto) Neut % (Auto) Lymph % (Auto) [place] % (Auto) Eos % (Auto) Baso % (Auto) Lymph # (Auto) [place] # (Auto) Eos # (Auto) Baso # (Auto) Abs Immat Gran (auto) Absolute Neuts (auto) Absolute Nucleated RBC Nucleated RBC % (auto) Neutrophils % (Manual) Band Neutrophils % Lymphocytes % (Manual) Monocytes % (Manual) Metamyelocytes % Myelocytes % Abs Neuts (Manual) Lymphocytes # (Manual) Monocytes # (Manual) Metamyelocytes # Myelocytes # Nucleated RBCs Toxic Vacuolation Platelet Estimate Large Platelets Plt Morphology Comment RBC Morphology Polychromasia Basophilic Stippling Tear Drop Cells Smear Path Review O2 Saturation ABG pH at Pt Temp ABG pCO2 at Pt Temp ABG pO2 at Pt Temp ABG HCO3 ABG Base Excess (Actual) VBG pH 7.28 L 7.26 L VBG pCO2 52 60 VBG pO2 109 50 VBG HCO3 25 27 H VBG O2 Saturation 98.0 75.0 VBG Base Excess -2.4 -1.0 Anion Gap Estim Creat Clear Calc Estimated GFR POC Glucose Random Glucose Lactic Acid Lactic Acid Fup @ 2Hr Lactic Acid Fup @ 4Hr 4.9 H* Calcium Total Bilirubin AST ALT Alkaline Phosphatase Troponin I High Sens Total Protein Albumin Lipase Urine Color Urine Appearance Urine pH Ur Specific [place] Urine Protein Urine Glucose (UA) Urine Ketones Urine Blood Urine Nitrite Ur Leukocyte Esterase Urine Opiates Screen Urine Fentanyl Screen Ur Barbiturates Screen Ur Phencyclidine Scrn Ur Amphetamines Screen U Benzodiazepines Scrn Urine Cocaine Screen U Marijuana (THC) Screen Ethyl Alcohol Acetone, Qual COVID-19 (ELBA) COVID-19 Clin Com 01/11/21 01/11/21 12:08 14:00 MCV MCH MCHC RDW Plt Count MPV Immature Gran % (Auto) Neut % (Auto) Lymph % (Auto) [place] % (Auto) Eos % (Auto) Baso % (Auto) Lymph # (Auto) [place] # (Auto) Eos # (Auto) Baso # (Auto) Abs Immat Gran (auto) Absolute Neuts (auto) Absolute Nucleated RBC Nucleated RBC % (auto) Neutrophils % (Manual) Band Neutrophils % Lymphocytes % (Manual) Monocytes % (Manual) Metamyelocytes % Myelocytes % Abs Neuts (Manual) Lymphocytes # (Manual) Monocytes # (Manual) Metamyelocytes # Myelocytes # Nucleated RBCs Toxic Vacuolation Platelet Estimate Large Platelets Plt Morphology Comment RBC Morphology Polychromasia Basophilic Stippling Tear Drop Cells Smear Path Review O2 Saturation 89.0 ABG pH at Pt Temp 7.29 L ABG pCO2 at Pt Temp 44 ABG pO2 at Pt Temp 66 L ABG HCO3 21 L ABG Base Excess (Actual) -4.6 VBG pH VBG pCO2 VBG pO2 VBG HCO3 VBG O2 Saturation VBG Base Excess Anion Gap Estim Creat Clear Calc Estimated GFR POC Glucose Random Glucose Lactic Acid 7.5 H* Lactic Acid Fup @ 2Hr Lactic Acid Fup @ 4Hr Calcium Total Bilirubin AST ALT Alkaline Phosphatase Troponin I High Sens Total Protein Albumin Lipase Urine Color Urine Appearance Urine pH Ur Specific [place] Urine Protein Urine Glucose (UA) Urine Ketones Urine Blood Urine Nitrite Ur Leukocyte Esterase Urine Opiates Screen Urine Fentanyl Screen Ur Barbiturates Screen Ur Phencyclidine Scrn Ur Amphetamines Screen U Benzodiazepines Scrn Urine Cocaine Screen U Marijuana (THC) Screen Ethyl Alcohol Acetone, Qual COVID-19 (ELBA) COVID-19 Clin Com Imaging Radiologist's Impressions: Impressions Chest X-Ray 01/11/21 01:04 IMPRESSION: -Mild pulmonary vascular congestion. No focal pulmonary consolidation. Chest CT 01/11/21 03:14 IMPRESSION: -Bilateral diffuse alveolar opacities and peribronchial wall thickening in a generally symmetric configuration. These findings may represent pulmonary edema. Relative subpleural sparing of findings is noted which is sometimes a feature resolving pulmonary edema. Findings could also represent infection or pulmonary hemorrhage. Findings are not typical for aspiration pneumonitis given the diffuse appearance of findings and relative subpleural sparing. Multifocal atypical/viral pneumonia could have a similar appearance. -Moderate quantity of gas and fluid within the visualized stomach. No fluid distention of the thoracic esophagus. Head CT 01/11/21 03:14 IMPRESSION: -No intracranial abnormalities. -Extracranial cutaneous faisal in the left parietal region. Assessment and Plan (1) Acute respiratory failure with hypoxia: Status: Acute (2) Unresponsive: Status: Acute (3) Drug overdose: Status: Acute (4) Pulmonary edema: Status: Acute A 50 years old male with PMH of drug abuse, hypertension, depression among others who presented to the hospital via EMS as he was found unresponsive. Acute respiratory failure with hypoxia Secondary to pulmonary edema As a result of drug overdose CXR, CT scan showing findings of increase vascular congestion Picture of pulmonary edema Placed on BiPAP and received steroids To give a dose of Lasix Monitor intake and output Wean oxygen down as tolerated Lactic acidosis Likely type 2 LA not related to sepsis Drug overdose Urine tox positive for fentanyl and morphine Patient reports he does not want to use any more To get addiction team evaluation Hypertension Lisinopril DVT PPX Lovenox Quality Stroke Does the patient have a stroke diagnosis?: No VTE Prior VTE?: No VTE Risk Level:: Medical - moderate - high VTE Device Contraindication: Treatment Not Indicated VTE Drug Contraindication: N/A - Med Ordered
[2021-01-11 14:45] LABS: Anion Gap 19 (12-20); Blood Urea Nitrogen 26 mg/dL (9-16); Calcium 9.6 mg/dL (8.4-10.2); Carbon Dioxide 22 mmol/L (22-29); Chloride 106 mmol/L (96-108); Creatinine Clr Calc Pharmacy 97.1; Estimated Glomerular Filt Rate > 60; Glucose Random 165 mg/dL (60-115); Potassium 4.8 mmol/L (3.3-5.1); Sodium 142 mmol/L (135-145)
[2021-01-11] MEDS: Enoxaparin Sodium 40 MG/0.4 ML SYRINGE SUBCUT (15:00)
[2021-01-11] MEDS: Furosemide 20 MG/2 ML VIAL IVPUSH (15:00)
[2021-01-11] MEDS: 0.9 % Sodium Chloride Flush 3 ML SYRINGE IVFLUSH ×2 (15:00→20:54)
[2021-01-11 16:03] LABS: Reflex Lactate? Lactic Acid Added
--- NOTE | 2021-01-11 16:18 | HO.ADDICT_ITS ---
History of Present Illness Date of Service: 01/11/2021 Chief Complaint: Difficulty breathing Reason for Consult: opioid overdose Requesting physician: Rani Valle Sources of Information: patient interviewed and chart reviewed HPI Narrative: Patient is a 50 year old male currently medically admitted following opioid overdose. Patient seen in the emergency department, girlfriend present during interview. Patient somewhat guarded during interview. Reporting that he uses heroin to cope with several personal problems that he is dealing with. He reports that prior to today he had not used heroin in 4 months. He also reports 3 other opioid overdoses Did not want to really discuss substance use history beyond that, but did state that he was involved with drugs a lot then I went to intermediate for 15 years . Significant trauma history and lack of behavioral health supports or coping skills identified as triggers for use. Review of Systems Review of Systems denies any nausea, loose stools, chills, body aches, anxiety or restlessness Diagnostics Vital Signs (24Hr): Vital Signs - 24 hr 01/11/21 01:07 01/11/21 01:13 01/11/21 02:03 Temperature 96 F L 96.2 F L Pulse Rate 98 Respiratory Rate 10 L Blood Pressure 145/86 H Pulse Oximetry 92 99 01/11/21 02:30 01/11/21 03:15 01/11/21 04:12 Temperature Pulse Rate 95 96 89 Respiratory Rate 24 H 25 H Blood Pressure 126/77 113/72 Pulse Oximetry 94 93 01/11/21 04:18 01/11/21 06:34 01/11/21 06:44 Temperature Pulse Rate 93 119 H Respiratory Rate 26 H 30 H Blood Pressure 131/78 143/82 H Pulse Oximetry 100 01/11/21 07:00 01/11/21 07:44 01/11/21 10:47 Temperature Pulse Rate 109 H 103 H 94 Respiratory Rate 34 H Blood Pressure 138/86 115/71 119/68 Pulse Oximetry 91 L 01/11/21 12:20 01/11/21 14:55 Temperature 97.6 F 97.7 F Pulse Rate 89 90 Respiratory Rate 24 H 24 H Blood Pressure 113/62 122/76 Pulse Oximetry 89 L 94 BMI result Body Mass Index 33.7 Labs Results: 01/11/21 01:10 01/11/21 14:00 Labs: Laboratory Results - last 48 hr 01/11/21 01/11/21 01/11/21 01:01 01:10 01:10 WBC 26.2 H RBC 4.68 Hgb 14.2 Hct 44.4 MCV 94.9 MCH 30.3 MCHC 32.0 RDW 14.4 Plt Count [employer]SMISS[employer] MPV Not Reportable Immature Gran % (Auto) Cancelled Neut % (Auto) Cancelled Lymph % (Auto) Cancelled [place] % (Auto) Cancelled Eos % (Auto) Cancelled Baso % (Auto) Cancelled Lymph # (Auto) Cancelled [place] # (Auto) Cancelled Eos # (Auto) Cancelled Baso # (Auto) Cancelled Abs Immat Gran (auto) Cancelled Absolute Neuts (auto) Cancelled Absolute Nucleated RBC 0.120 H Nucleated RBC % (auto) 0.5 H Neutrophils % (Manual) 64 Band Neutrophils % 4 Lymphocytes % (Manual) 20 Monocytes % (Manual) 1 L Metamyelocytes % 9 Myelocytes % 2 Abs Neuts (Manual) 17.8 H Lymphocytes # (Manual) 5.2 H Monocytes # (Manual) 0.3 Metamyelocytes # 2.4 Myelocytes # 0.5 Nucleated RBCs 2 H Toxic Vacuolation PRESENT Platelet Estimate NORMAL Large Platelets PRESENT Plt Morphology Comment NORMAL RBC Morphology NORMAL Polychromasia 1+ (0-2) Basophilic Stippling 1+ (0-2) Tear Drop Cells 1+ (0-2) Smear Path Review SEE NOTE O2 Saturation ABG pH at Pt Temp ABG pCO2 at Pt Temp ABG pO2 at Pt Temp ABG HCO3 ABG Base Excess (Actual) VBG pH VBG pCO2 VBG pO2 VBG HCO3 VBG O2 Saturation VBG Base Excess Sodium 140 Potassium 5.6 H D Chloride 103 Carbon Dioxide 20 L Anion Gap 23 H BUN 29 H D Creatinine 1.48 H Estim Creat Clear Calc 70.2 Estimated GFR 51 POC Glucose 333 H Random Glucose 372 H* Lactic Acid Lactic Acid Fup @ 2Hr Lactic Acid Fup @ 4Hr Calcium 9.5 Total Bilirubin 0.3 AST 56 H ALT 68 H Alkaline Phosphatase 94 Troponin I High Sens Total Protein 7.1 Albumin 4.2 Lipase 33 Urine Color Urine Appearance Urine pH Ur Specific [place] Urine Protein Urine Glucose (UA) Urine Ketones Urine Blood Urine Nitrite Ur Leukocyte Esterase Urine Opiates Screen Urine Fentanyl Screen Ur Barbiturates Screen Ur Phencyclidine Scrn Ur Amphetamines Screen U Benzodiazepines Scrn Urine Cocaine Screen U Marijuana (THC) Screen Ethyl Alcohol Acetone, Qual Negative COVID-19 (ELBA) COVID-19 Platial 01/11/21 01/11/21 01/11/21 01:10 01:10 01:10 WBC RBC Hgb Hct MCV MCH MCHC RDW Plt Count MPV Immature Gran % (Auto) Neut % (Auto) Lymph % (Auto) [place] % (Auto) Eos % (Auto) Baso % (Auto) Lymph # (Auto) [place] # (Auto) Eos # (Auto) Baso # (Auto) Abs Immat Gran (auto) Absolute Neuts (auto) Absolute Nucleated RBC Nucleated RBC % (auto) Neutrophils % (Manual) Band Neutrophils % Lymphocytes % (Manual) Monocytes % (Manual) Metamyelocytes % Myelocytes % Abs Neuts (Manual) Lymphocytes # (Manual) Monocytes # (Manual) Metamyelocytes # Myelocytes # Nucleated RBCs Toxic Vacuolation Platelet Estimate Large Platelets Plt Morphology Comment RBC Morphology Polychromasia Basophilic Stippling Tear Drop Cells Smear Path Review O2 Saturation ABG pH at Pt Temp ABG pCO2 at Pt Temp ABG pO2 at Pt Temp ABG HCO3 ABG Base Excess (Actual) VBG pH VBG pCO2 VBG pO2 VBG HCO3 VBG O2 Saturation VBG Base Excess Sodium Potassium Chloride Carbon Dioxide Anion Gap BUN Creatinine Estim Creat Clear Calc Estimated GFR POC Glucose Random Glucose Lactic Acid 4.3 H* Lactic Acid Fup @ 2Hr Lactic Acid Fup @ 4Hr Calcium Total Bilirubin AST ALT Alkaline Phosphatase Troponin I High Sens 14.2 Total Protein Albumin Lipase Urine Color Urine Appearance Urine pH Ur Specific [place] Urine Protein Urine Glucose (UA) Urine Ketones Urine Blood Urine Nitrite Ur Leukocyte Esterase Urine Opiates Screen Urine Fentanyl Screen Ur Barbiturates Screen Ur Phencyclidine Scrn Ur Amphetamines Screen U Benzodiazepines Scrn Urine Cocaine Screen U Marijuana (THC) Screen Ethyl Alcohol < 10 Acetone, Qual COVID-19 (ELBA) COVID-19 Platial 01/11/21 01/11/21 01/11/21 01:14 01:20 02:47 WBC RBC Hgb Hct MCV MCH MCHC RDW Plt Count MPV Immature Gran % (Auto) Neut % (Auto) Lymph % (Auto) [place] % (Auto) Eos % (Auto) Baso % (Auto) Lymph # (Auto) [place] # (Auto) Eos # (Auto) Baso # (Auto) Abs Immat Gran (auto) Absolute Neuts (auto) Absolute Nucleated RBC Nucleated RBC % (auto) Neutrophils % (Manual) Band Neutrophils % Lymphocytes % (Manual) Monocytes % (Manual) Metamyelocytes % Myelocytes % Abs Neuts (Manual) Lymphocytes # (Manual) Monocytes # (Manual) Metamyelocytes # Myelocytes # Nucleated RBCs Toxic Vacuolation Platelet Estimate Large Platelets Plt Morphology Comment RBC Morphology Polychromasia Basophilic Stippling Tear Drop Cells Smear Path Review O2 Saturation ABG pH at Pt Temp ABG pCO2 at Pt Temp ABG pO2 at Pt Temp ABG HCO3 ABG Base Excess (Actual) VBG pH 7.18 L* VBG pCO2 74 VBG pO2 40 VBG HCO3 28 H VBG O2 Saturation 51.0 VBG Base Excess -1.9 Sodium 145 Potassium 4.8 Chloride 110 H Carbon Dioxide 25 Anion Gap 15 BUN 27 H Creatinine 1.06 Estim Creat Clear Calc 98.0 Estimated GFR > 60 POC Glucose Random Glucose 145 H D Lactic Acid Lactic Acid Fup @ 2Hr Lactic Acid Fup @ 4Hr Calcium 8.8 D Total Bilirubin 0.2 AST 44 H ALT 63 H Alkaline Phosphatase 72 D Troponin I High Sens Total Protein 6.3 L Albumin 3.7 Lipase Urine Color Urine Appearance Urine pH Ur Specific [place] Urine Protein Urine Glucose (UA) Urine Ketones Urine Blood Urine Nitrite Ur Leukocyte Esterase Urine Opiates Screen Urine Fentanyl Screen Ur Barbiturates Screen Ur Phencyclidine Scrn Ur Amphetamines Screen U Benzodiazepines Scrn Urine Cocaine Screen U Marijuana (THC) Screen Ethyl Alcohol Acetone, Qual COVID-19 (ELBA) Negative COVID-19 Clin Com See Note 01/11/21 01/11/21 01/11/21 02:47 02:50 03:53 WBC RBC Hgb Hct MCV MCH MCHC RDW Plt Count MPV Immature Gran % (Auto) Neut % (Auto) Lymph % (Auto) [place] % (Auto) Eos % (Auto) Baso % (Auto) Lymph # (Auto) [place] # (Auto) Eos # (Auto) Baso # (Auto) Abs Immat Gran (auto) Absolute Neuts (auto) Absolute Nucleated RBC Nucleated RBC % (auto) Neutrophils % (Manual) Band Neutrophils % Lymphocytes % (Manual) Monocytes % (Manual) Metamyelocytes % Myelocytes % Abs Neuts (Manual) Lymphocytes # (Manual) Monocytes # (Manual) Metamyelocytes # Myelocytes # Nucleated RBCs Toxic Vacuolation Platelet Estimate Large Platelets Plt Morphology Comment RBC Morphology Polychromasia Basophilic Stippling Tear Drop Cells Smear Path Review O2 Saturation ABG pH at Pt Temp ABG pCO2 at Pt Temp ABG pO2 at Pt Temp ABG HCO3 ABG Base Excess (Actual) VBG pH 7.22 L VBG pCO2 70 VBG pO2 48 VBG HCO3 29 H VBG O2 Saturation 68.0 VBG Base Excess -0.2 Sodium Potassium Chloride Carbon Dioxide Anion Gap BUN Creatinine Estim Creat Clear Calc Estimated GFR POC Glucose Random Glucose Lactic Acid 2.5 H* Lactic Acid Fup @ 2Hr Lactic Acid Fup @ 4Hr Calcium Total Bilirubin AST ALT Alkaline Phosphatase Troponin I High Sens Total Protein Albumin Lipase Urine Color YELLOW Urine Appearance CLEAR Urine pH 6.0 Ur Specific [place] >= 1.030 H Urine Protein TRACE Urine Glucose (UA) 500 H Urine Ketones NEG Urine Blood NEG Urine Nitrite NEG Ur Leukocyte Esterase NEG Urine Opiates Screen Urine Fentanyl Screen Ur Barbiturates Screen Ur Phencyclidine Scrn Ur Amphetamines Screen U Benzodiazepines Scrn Urine Cocaine Screen U Marijuana (THC) Screen Ethyl Alcohol Acetone, Qual COVID-19 (ELBA) COVID-19 Clin Com 01/11/21 01/11/21 01/11/21 03:53 03:58 03:59 WBC RBC Hgb Hct MCV MCH MCHC RDW Plt Count MPV Immature Gran % (Auto) Neut % (Auto) Lymph % (Auto) [place] % (Auto) Eos % (Auto) Baso % (Auto) Lymph # (Auto) [place] # (Auto) Eos # (Auto) Baso # (Auto) Abs Immat Gran (auto) Absolute Neuts (auto) Absolute Nucleated RBC Nucleated RBC % (auto) Neutrophils % (Manual) Band Neutrophils % Lymphocytes % (Manual) Monocytes % (Manual) Metamyelocytes % Myelocytes % Abs Neuts (Manual) Lymphocytes # (Manual) Monocytes # (Manual) Metamyelocytes # Myelocytes # Nucleated RBCs Toxic Vacuolation Platelet Estimate Large Platelets Plt Morphology Comment RBC Morphology Polychromasia Basophilic Stippling Tear Drop Cells Smear Path Review O2 Saturation ABG pH at Pt Temp ABG pCO2 at Pt Temp ABG pO2 at Pt Temp ABG HCO3 ABG Base Excess (Actual) VBG pH VBG pCO2 VBG pO2 VBG HCO3 VBG O2 Saturation VBG Base Excess Sodium 144 Potassium 4.0 Chloride 111 H Carbon Dioxide 22 Anion Gap 15 BUN 27 H Creatinine 0.91 Estim Creat Clear Calc 114.1 Estimated GFR > 60 POC Glucose Random Glucose 118 H Lactic Acid Lactic Acid Fup @ 2Hr 2.8 H* Lactic Acid Fup @ 4Hr Calcium 8.6 Total Bilirubin 0.3 AST 39 H ALT 61 H Alkaline Phosphatase 68 Troponin I High Sens Total Protein 6.2 L Albumin 3.7 Lipase Urine Color Urine Appearance Urine pH Ur Specific [place] Urine Protein Urine Glucose (UA) Urine Ketones Urine Blood Urine Nitrite Ur Leukocyte Esterase Urine Opiates Screen POSITIVE H Urine Fentanyl Screen POSITIVE H Ur Barbiturates Screen Not Detected Ur Phencyclidine Scrn Not Detected Ur Amphetamines Screen Not Detected U Benzodiazepines Scrn Not Detected Urine Cocaine Screen Not Detected U Marijuana (THC) Screen Not Detected Ethyl Alcohol Acetone, Qual COVID-19 (ELBA) COVID-19 Clin Com 01/11/21 01/11/21 01/11/21 04:01 05:37 08:37 WBC RBC Hgb Hct MCV MCH MCHC RDW Plt Count MPV Immature Gran % (Auto) Neut % (Auto) Lymph % (Auto) [place] % (Auto) Eos % (Auto) Baso % (Auto) Lymph # (Auto) [place] # (Auto) Eos # (Auto) Baso # (Auto) Abs Immat Gran (auto) Absolute Neuts (auto) Absolute Nucleated RBC Nucleated RBC % (auto) Neutrophils % (Manual) Band Neutrophils % Lymphocytes % (Manual) Monocytes % (Manual) Metamyelocytes % Myelocytes % Abs Neuts (Manual) Lymphocytes # (Manual) Monocytes # (Manual) Metamyelocytes # Myelocytes # Nucleated RBCs Toxic Vacuolation Platelet Estimate Large Platelets Plt Morphology Comment RBC Morphology Polychromasia Basophilic Stippling Tear Drop Cells Smear Path Review O2 Saturation ABG pH at Pt Temp ABG pCO2 at Pt Temp ABG pO2 at Pt Temp ABG HCO3 ABG Base Excess (Actual) VBG pH 7.28 L 7.26 L VBG pCO2 52 60 VBG pO2 109 50 VBG HCO3 25 27 H VBG O2 Saturation 98.0 75.0 VBG Base Excess -2.4 -1.0 Sodium Potassium Chloride Carbon Dioxide Anion Gap BUN Creatinine Estim Creat Clear Calc Estimated GFR POC Glucose Random Glucose Lactic Acid Lactic Acid Fup @ 2Hr Lactic Acid Fup @ 4Hr 4.9 H* Calcium Total Bilirubin AST ALT Alkaline Phosphatase Troponin I High Sens Total Protein Albumin Lipase Urine Color Urine Appearance Urine pH Ur Specific [place] Urine Protein Urine Glucose (UA) Urine Ketones Urine Blood Urine Nitrite Ur Leukocyte Esterase Urine Opiates Screen Urine Fentanyl Screen Ur Barbiturates Screen Ur Phencyclidine Scrn Ur Amphetamines Screen U Benzodiazepines Scrn Urine Cocaine Screen U Marijuana (THC) Screen Ethyl Alcohol Acetone, Qual COVID-19 (ELBA) COVID-19 Clin Com 01/11/21 01/11/21 01/11/21 12:08 14:00 14:00 WBC RBC Hgb Hct MCV MCH MCHC RDW Plt Count MPV Immature Gran % (Auto) Neut % (Auto) Lymph % (Auto) [place] % (Auto) Eos % (Auto) Baso % (Auto) Lymph # (Auto) [place] # (Auto) Eos # (Auto) Baso # (Auto) Abs Immat Gran (auto) Absolute Neuts (auto) Absolute Nucleated RBC Nucleated RBC % (auto) Neutrophils % (Manual) Band Neutrophils % Lymphocytes % (Manual) Monocytes % (Manual) Metamyelocytes % Myelocytes % Abs Neuts (Manual) Lymphocytes # (Manual) Monocytes # (Manual) Metamyelocytes # Myelocytes # Nucleated RBCs Toxic Vacuolation Platelet Estimate Large Platelets Plt Morphology Comment RBC Morphology Polychromasia Basophilic Stippling Tear Drop Cells Smear Path Review O2 Saturation 89.0 ABG pH at Pt Temp 7.29 L ABG pCO2 at Pt Temp 44 ABG pO2 at Pt Temp 66 L ABG HCO3 21 L ABG Base Excess (Actual) -4.6 VBG pH VBG pCO2 VBG pO2 VBG HCO3 VBG O2 Saturation VBG Base Excess Sodium 142 Potassium 4.8 Chloride 106 Carbon Dioxide 22 Anion Gap 19 BUN 26 H Creatinine 1.07 Estim Creat Clear Calc 97.1 Estimated GFR > 60 POC Glucose Random Glucose 165 H D Lactic Acid 7.5 H* Lactic Acid Fup @ 2Hr Lactic Acid Fup @ 4Hr Calcium 9.6 D Total Bilirubin AST ALT Alkaline Phosphatase Troponin I High Sens Total Protein Albumin Lipase Urine Color Urine Appearance Urine pH Ur Specific [place] Urine Protein Urine Glucose (UA) Urine Ketones Urine Blood Urine Nitrite Ur Leukocyte Esterase Urine Opiates Screen Urine Fentanyl Screen Ur Barbiturates Screen Ur Phencyclidine Scrn Ur Amphetamines Screen U Benzodiazepines Scrn Urine Cocaine Screen U Marijuana (THC) Screen Ethyl Alcohol Acetone, Qual COVID-19 (ELBA) COVID-19 Clin Com Imaging Radiology Impressions: ITS Impressions Chest X-Ray 01/11/21 01:04 IMPRESSION: -Mild pulmonary vascular congestion. No focal pulmonary consolidation. Chest CT 01/11/21 03:14 IMPRESSION: -Bilateral diffuse alveolar opacities and peribronchial wall thickening in a generally symmetric configuration. These findings may represent pulmonary edema. Relative subpleural sparing of findings is noted which is sometimes a feature resolving pulmonary edema. Findings could also represent infection or pulmonary hemorrhage. Findings are not typical for aspiration pneumonitis given the diffuse appearance of findings and relative subpleural sparing. Multifocal atypical/viral pneumonia could have a similar appearance. -Moderate quantity of gas and fluid within the visualized stomach. No fluid distention of the thoracic esophagus. Head CT 01/11/21 03:14 IMPRESSION: -No intracranial abnormalities. -Extracranial cutaneous faisal in the left parietal region. Mental Status Exam Mental Status Exam Patient Appearance: Appropriate Patient Orientation: Person, Place, Time and Situation Level of Consciousness: Awake and Appropriate Patient Behavior: Appropriate and Guarded Mood Description: Apprehensive Affect Description: Apprehensive Patient Cognition Impaired: No Judgement: Fair (limited insight related to susbtace use ) Medications Medications Current Medications Acetaminophen (Acetaminophen 325 Mg Tablet) 650 mg PO Q6H PRN PRN Reason: Pain, Mild (Pain Scale 1-3) Albuterol Sulfate (Albuterol Sulfate 90 Mcg 8 Gm Inhaler) 4 puff INHALE RQ6H WHILE AWAKE [facility] Atorvastatin Calcium (Atorvastatin Calcium 40 Mg Tablet) 40 mg PO DAILY [facility] [place] Cyclobenzaprine HCl (Cyclobenzaprine Hcl 5 Mg Tablet) 5 mg PO Q8H PRN PRN Reason: pain (scale score 7-10) Enoxaparin Sodium (Enoxaparin Sodium 40 Mg/0.4 Ml Syringe) 40 mg SUBCUT Q24H [facility] Last Admin: 01/11/21 15:00 Dose: 40 mg Documented by: Gabapentin (Gabapentin 100 Mg Capsule) 100 mg PO BID [facility] [place] Lisinopril (Lisinopril 20 Mg Tablet) 20 mg PO DAILY [facility] [place]; Protocol Ondansetron HCl (Ondansetron Hcl 4 Mg/2 Ml Vial) 4 mg IVPUSH Q8H PRN PRN Reason: Nausea and Vomiting Pramipexole Dihydrochloride (Pramipexole Di-Hcl 0.25 Mg Tablet) 0.25 mg PO BEDTIME [facility] Prednisone (Prednisone 20 Mg Tablet) 40 mg PO DAILY [facility] Sodium Chloride (0.9 % Sodium Chloride Flush 3 Ml Syringe) 3 ml IVFLUSH QSHIFT RADHA Last Admin: 01/11/21 15:00 Dose: 3 ml Documented by: Allergies Allergies Allergy/AdvReac Type Severity Reaction Status Date / Time kiwi [KIWI] Allergy Unknown SWOLLEN Verified 01/11/21 01:19 LIPS Assessment & Plan Assessment & Plan (1) Drug overdose: Status: Acute Code(s): T50.901A - Poisoning by unspecified drugs, medicaments and biological substanc es, accidental (unintentional), initial encounter Assessment and Plan: * patient declines any MOUD. * open to meeting with personal health coach * will follow up in AM to provide BH resources and assist with referral * overdose prevention and naloxone education provided to girlfriend (please ensure that she is provided with take home narcan) I spent __35____ minutes with the patient and/or on the patient floor today, greater than?50% of which was spent counseling/coordinating care. PMFSH Past Medical History Medical History COVID-19 Depression High cholesterol HTN (hypertension) HTN (hypertension) Intentional weight loss Sudden hearing loss Family History Family History Father Pancreatic cancer Mother Diabetes Surgical History Surgical History No history of previous surgery Social History Social History Alcohol intake: never Patient Tobacco Use Status: Never used Tobacco Use of substances other than those prescribed or required for medical reasons: No Advance Directives: No Advance Directives Information Provided: Yes
--- NOTE | 2021-01-11 16:20 | HO.SUDE ---
Please see Addiction Consult note by Amanda Alvarez APRN.
[2021-01-11 16:53] LABS: ~Lactic Acid-LAB USE ONLY 7.6 mmol/L (0.5-2.0)
--- NOTE | 2021-01-11 17:41 | MHC.RECOVSUP ---
? Reason for consult Recovery Support o Current location: ED4 o Identified substance use concern: Heroin - Overdose - Support ? Intervention: o Community resources provided o Harm reduction discussion ? Plan: o Follow up tomorrow o Patient to follow up with [facility] after discharge ? Additional information: Met with Patient and we talk about Harm reduction,MAT,(which he was not interested in).. Patient stated that he would like to do meetings.. we talk about [facility] and what they do there.
[2021-01-11 18:26] LABS: Reflex Lactate? 2 Y
[2021-01-11] MEDS: Albuterol Sulfate 90 MCG 8 GM INHALER 4 PUFF INHALE ×2 (19:14→19:15)
[2021-01-11 19:23] LABS: ~Lactic Acid-LAB USE ONLY 6.1 mmol/L (0.5-2.0)
[2021-01-11] MEDS: Pramipexole Di-HCL 0.25 MG TABLET PO (20:53)
[2021-01-11] MEDS: Gabapentin 100 MG CAPSULE PO (20:54)
[2021-01-11] MEDS: Cyclobenzaprine HCl 5 MG TABLET PO (20:56)
[2021-01-12 03:26] VITALS: BP 128/70; PULSE 82; RESP 18; TEMP 36.2; O2SAT 98
[2021-01-12 06:59] LABS: Hematocrit 36.6 % (42.0-52.0); Hemoglobin 11.8 g/dl (14.0-18.0); Mean Corpuscular HGB Conc 32.2 g/dl (31.0-36.0); Mean Corpuscular Hemoglobin 29.9 pg (27.0-33.0); Mean Corpuscular Volume 92.7 fL (80.0-98.0); Mean Platelet Volume 10.2 fL (9.4-12.4); Platelet Count 249 X10*3/uL (160-400); Red Blood Count 3.95 X10*6/uL (4.60-5.80); Red Cell Distribution Width 14.6 % (11.0-16.0); White Blood Count 20.7 X10*3/uL (4.8-10.8)
[2021-01-12 07:12] LABS: Anion Gap 15 (12-20); Blood Urea Nitrogen 25 mg/dL (9-16); Calcium 9.6 mg/dL (8.4-10.2); Carbon Dioxide 28 mmol/L (22-29); Chloride 102 mmol/L (96-108); Creatinine Clr Calc Pharmacy 125.1; Estimated Glomerular Filt Rate > 60; Glucose Random 141 mg/dL (60-115); Potassium 5.4 mmol/L (3.3-5.1); Sodium 140 mmol/L (135-145)
[2021-01-12 07:47] VITALS: BP 125/71; PULSE 95; RESP 18; TEMP 36.4; O2SAT 97
[2021-01-12] MEDS: Sodium Polystyrene Sulfon/Sorb 15 GM/60 ML ORAL.SUSP 30 GM PO (08:01)
[2021-01-12 08:06] VITALS: O2SAT 3
[2021-01-12] MEDS: Gabapentin 100 MG CAPSULE PO (09:07)
[2021-01-12 09:08] VITALS: BP 125/71; PULSE 95
[2021-01-12] MEDS: lisinopriL 20 MG TABLET PO (09:08)
[2021-01-12] MEDS: Atorvastatin Calcium 40 MG TABLET PO (09:08)
[2021-01-12] MEDS: predniSONE 20 MG TABLET 40 MG PO (09:08)
[2021-01-12] MEDS: 0.9 % Sodium Chloride Flush 3 ML SYRINGE IVFLUSH (09:17)
--- NOTE | 2021-01-12 09:44 | MHC.CM.PN ---
met with pt who lives with his parent he had no servcies prior to admisison and is independent pt will be seen by care team prior t o dc dc plan home has own trnapsortaion
--- NOTE | 2021-01-12 10:29 | P.CDIC_ITS ---
CDI Concurrent Query Documentation Clarification: PHYSICIAN'S DOCUMENTATION REQUEST Date of Query: 01/12/21 1029 Patient Name: Matt Tamayo Admit Date: 01/11/21 Dear Doctor, A review of the medical record indicates additional documentation may be needed. Please review below and update the documentation accordingly. Risk Factors/Clinical Indicators/Treatments 01/12/21: Potassium level 5.6 Received Kayexalate 30 mg po x1 Based on the above, could you clarify in the Progress Notes the appropriate diagnosis, if significant, that supports the above abnormalities and additional evaluation, monitoring, and/or treatment rendered: * Labs indicate a diagnosis of (please specify) * Other (please specify) * Unable to determine Use of terms such as suspected, likely, concern for, or probable (associated with a specific diagnosis that is being evaluated, monitored, or treated as if it exists) are acceptable and can be coded in the inpatient setting, when docume nted at the time of discharge. Thank you, Olivia Mullins RN Extension: [phone] Please use your independent medical judgment in providing your response. THIS QUERY IS PART OF THE PERMANENT MEDICAL RECORD Provider Response: Other Other Diagnosis: Hyperkalemia
--- NOTE | 2021-01-12 10:31 | P.CDIC_ITS ---
CDI Concurrent Query Documentation Clarification: PHYSICIAN'S DOCUMENTATION REQUEST Date of Query: 01/12/21 1031 Patient Name: Matt Tamayo Admit Date: 01/11/21 Dear Doctor, A review of the medical record indicates additional documentation may be needed. Please review below and update the documentation accordingly. Risk Factors/Clinical Indicators/Treatments found unresponsive, head strike with treatment of 11 faisal to scalp Based on the above, could you clarify in the Progress Notes the appropriate diagnosis, if significant, that supports the above abnormalities and additional evaluation, monitoring, and/or treatment rendered: * Based on the above, could you provide a diagnosis associated with the evaluation, monitoring, treatment * Other (please specify) * Unable to determine Use of terms such as suspected, likely, concern for, or probable (associated with a specific diagnosis that is being evaluated, monitored, or treated as if it exists) are acceptable and can be coded in the inpatient setting, when documented at the time of discharge. Thank you, Olivia Mullins RN Extension: [phone] Please use your independent medical judgment in providing your response. THIS QUERY IS PART OF THE PERMANENT MEDICAL RECORD Provider Response: Other Other Diagnosis: Scalp wound
--- NOTE | 2021-01-12 10:49 | PM.DS ---
DS: Providers Provider Date of Service: 01/12/21 Date of admission: 01/11/21 14:12 Primary care physician: Unknown Physician Consults: 01/11/21 14:12 Addiction Medicine Routine Consulting Provider: Amanda Alvarez Reason for consultation: Overdose, pulmonary edema, wants to quit DS: Diagnosis Discharge Diagnosis (1) Drug overdose: Status: Acute (2) Hyperkalemia: Status: Acute (3) Scalp laceration: Status: Acute (4) Unresponsive: Status: Acute (5) Acute respiratory failure with hypoxia: Status: Acute DS: Summary Hospital Course Hospital Course: Admission note HPI A 50 years old male with PMH of drug abuse, hypertension, depression among others who presented to the hospital via EMS as he was found unresponsive. The patient received intranasal Narcan for history of previous over does and was hypoxic at time of presentation.? Upon waking up the patient reported he had been abusing heroin.? Denies any pain, fever or chills. EMS reported multiple episodes of vomiting at times hospital. The patient was plan to go to the ICU for close monitoring as he required BiPAP and high-flow oxygen the emergency for acute pulmonary edema.? Evaluated by intensive care team who give the patient 1000 mg of methylprednisone.? Repeated VBG showed improvement in CO2 retention.? ICU team decided not to admit the patient to intensive care and instead admit him to hospitalist team in medical floor.? CXR and CT scan showing findings suggestive of fluid overload.? Home Admitted for further evaluation and treatment. Hospital course The patient was primarily plan to go to ICU but as he improved in the emergency was waiting for bed ICU transfer was canceled and sales development executive decided to downgrade the patient to medical floor. CXR and CT scan of the chest showed findings suggestive of increased vascular congestion. The patient was placed on BiPAP in the emergency and improved the in wean down to nasal cannula. Treated with steroids as he received very high dose from the sales development executive of 1 g. Continue with 40 mg of prednisone daily. He was also treated with IV Lasix with good response as he was weaned off the oxygen the next day. Evaluated by addiction team who recommended prescribing Narcan to go home with and to follow-up as outpatient as the patient is showing signs of well to quit opioids. He will have to follow-up with outpatient behavioral health network. Time Spent with Patient Time attestation: Total time spent providing and/or coordinating discharge services: Discharge coordination time: Greater than 30 minutes Quality: Stroke Does the patient have a stroke diagnosis?: No Physical Exam Vital Signs: Vital Signs: Last Vital Signs Temp 97.5 F 01/12/21 07:47 Pulse 95 01/12/21 09:08 Resp 18 01/12/21 07:47 BP 125/71 01/12/21 09:08 Pulse Ox 3 L 01/12/21 08:06 Oxygen Flow Rate 6 01/11/21 01:07 BMI result Body Mass Index 33.7 Const: Other: Constitutional : Alert, oriented, not in distress Neck : Normal inspection, Supple Cardiovascular : RRR, S1 S2, no lower extremity edema Respiratory : Fares bilateral air entry, no crackles, no wheezes Gastrointestinal: soft, lax, Normal bowel sounds, Non tender Skin : Warm, Dry Neurological : Alert & oriented x3, No focal deficit DS: Data Data Completed and Pending Labs on day of discharge: Laboratory Results - last 24 hr 01/11/21 01/11/21 01/11/21 12:08 14:00 14:00 WBC RBC Hgb Hct MCV MCH MCHC RDW Plt Count MPV Absolute Nucleated RBC Nucleated RBC % (auto) O2 Saturation 89.0 ABG pH at Pt Temp 7.29 L ABG pCO2 at Pt Temp 44 ABG pO2 at Pt Temp 66 L ABG HCO3 21 L ABG Base Excess (Actual) -4.6 Sodium 142 Potassium 4.8 Chloride 106 Carbon Dioxide 22 Anion Gap 19 BUN 26 H Creatinine 1.07 Estim Creat Clear Calc 97.1 Estimated GFR > 60 Random Glucose 165 H D Lactic Acid 7.5 H* Lactic Acid Fup @ 2Hr Lactic Acid Fup @ 4Hr Calcium 9.6 D 01/11/21 01/11/21 01/12/21 16:23 18:51 06:20 WBC 20.7 H RBC 3.95 L Hgb 11.8 L Hct 36.6 L MCV 92.7 MCH 29.9 MCHC 32.2 RDW 14.6 Plt Count 249 MPV 10.2 Absolute Nucleated RBC 0.000 Nucleated RBC % (auto) 0.0 O2 Saturation ABG pH at Pt Temp ABG pCO2 at Pt Temp ABG pO2 at Pt Temp ABG HCO3 ABG Base Excess (Actual) Sodium Potassium Chloride Carbon Dioxide Anion Gap BUN Creatinine Estim Creat Clear Calc Estimated GFR Random Glucose Lactic Acid Lactic Acid Fup @ 2Hr 7.6 H* Lactic Acid Fup @ 4Hr 6.1 H* Calcium 01/12/21 06:20 WBC RBC Hgb Hct MCV MCH MCHC RDW Plt Count MPV Absolute Nucleated RBC Nucleated RBC % (auto) O2 Saturation ABG pH at Pt Temp ABG pCO2 at Pt Temp ABG pO2 at Pt Temp ABG HCO3 ABG Base Excess (Actual) Sodium 140 Potassium 5.4 H Chloride 102 Carbon Dioxide 28 Anion Gap 15 BUN 25 H Creatinine 0.83 Estim Creat Clear Calc 125.1 Estimated GFR > 60 Random Glucose 141 H Lactic Acid Lactic Acid Fup @ 2Hr Lactic Acid Fup @ 4Hr Calcium 9.6 Preliminary micro results at discharge 01/11/21 01:53 Blood Culture - Preliminary Blood - Venous No growth after 24 hours. 01/11/21 01:53 Blood Culture - Preliminary Blood - Venous No growth after 24 hours. Discharge Plan Discharge Patient Disposition: Home, Self-Care Discharge Diagnosis: Drug overdose Unresponsive Acute respiratory failure Referrals: Physician,Unknown J [Primary Care Provider] - 1 Week Discharge Medications: New Narcan 4 mg/actuation spray,non-aerosol 4 mg intranasal Q2M PRN (Reason: opioid overdose) Qty: 2 RF: 0 prednisone 20 mg tablet 40 mg PO DAILY Qty: 4 RF: 0 Continued prednisone 20 mg tablet 40 mg PO DAILY 5 Days Qty: 10 RF: 0 gabapentin 100 mg capsule 100 mg PO BID Qty: 30 RF: 0 acetaminophen [Tylenol Extra Strength] 500 mg tablet 500 mg PO Q6H PRN (Reason: pain or fever) Qty: 20 RF: 0 lidocaine [Lidoderm] 5 % adhesive patch,medicated 1 patch topical DAILY MDD remove after 12 hours PRN (Reason: pain) Qty: 30 RF: 0 cyclobenzaprine 5 mg tablet 5 mg PO Q8H PRN (Reason: pain (scale score 7-10)) 5 Days Qty: 14 RF: 0 albuterol sulfate [ProAir HFA] 90 mcg/actuation HFA aerosol inhaler 2 puff PO QID RF: 0 morphine 15 mg tablet 1 tab PO Q6H PRN (Reason: pain) RF: 0 Flovent HFA 110 mcg/actuation HFA aerosol inhaler 2 puff PO BID RF: 0 pramipexole 0.25 mg tablet 1 tab PO BEDTIME RF: 0 atorvastatin 40 mg tablet 40 mg PO DAILY RF: 0 lisinopril-hydrochlorothiazide 20-25 mg tablet 1 tab PO DAILY RF: 0 Discharge Orders: Discharge Order (Routine); Ordered 01/12/21 Ordered By: Rani Valle Diet: advance to usual diet Activity on Discharge: As tolerated Stand Alone Forms: Patient Portal Discharge page Care Plan Goals: Read below Health Concerns: Read below Plan of Treatment: Read below Assessment: You were admitted to the hospital for respiratory failure after drug overdose. You were monitored in the emergency until you breathing improved and then you were admitted to the medical floors. Treated with symptomatic measures as your oxygen requirement wean down to room air. You were evaluated by Amanda Alvarez from Addiction Team with outpatient recommendations to follow-up. Prescribed Narcan to use if needed for overdose Discharge Date/Time: 01/12/21 11:45
[2021-01-12 11:07] VITALS: BP 126/66; PULSE 103; RESP 18; TEMP 37.2; O2SAT 92
--- NOTE | 2021-01-12 11:17 | MHC.CM.PN ---
pr dcd home no skilled services ordered by md,pt will be seen by care team for outpt support imfo
--- NOTE | 2021-01-12 11:27 | MHC.RECOVRN ---
Met with pt to f/u after Addiction Medicine consult yesterday. Pt reports feeling much better. Discussed recovery with pt as well as options for outpatient support. Pt provided with written community resources and support information, declines referrals at this time. Pt also provided with t/w contact information if needed at a later time. Discussed with Amanda Alvarez APRN. CM aware.
== END 2021-01-12 11:45 | disposition home or self-care (01) | DRG 812 ==
LOC: HO.ED 05:27 → HO.EDOVER 14:54 → HO.IMC 16:59
PROVIDERS: Emergency Medicine; Internal Medicine Cardiovascular Disease; Admitting Provider Student in an Organized Health Care Education/Training Program; Emergency Provider Student in an Organized Health Care Education/Training Program; PCP Internal Medicine; Visit Provider Student in an Organized Health Care Education/Training Program
DX: T43.221A Poisoning by selective serotonin reuptake inhibitors, accidental (unintentional), initial encounter (principal); J96.01 Acute respiratory failure with hypoxia; E87.5 Hyperkalemia; T40.2X1A Poisoning by other opioids, accidental (unintentional), initial encounter; S01.01XA Laceration without foreign body of scalp, initial encounter; W19.XXXA Unspecified fall, initial encounter; Y92.009 Unspecified place in unspecified non-institutional (private) residence as the place of occurrence of the external cause; Z20.822 Contact with and (suspected) exposure to COVID-19; Z79.899 Other long term (current) drug therapy
CPT/HCPCS: 36415; 70450; 71045; 71250; 80048; 80053; 80307; 81003; 82009; 82077; 82803; 82947; 83605; 83690; 84484; 85007; 85027; 87040; 87635; 93005; 93306; 94640; 96361; 96365; 96367; 96375; 96376; 99285; J1650; J1940; J2405; J2543; J2930; J3370

== ENCOUNTER 2021-01-13 20:24 | Inpatient (IN) | payer MEDICAID, SELFPAY ==
--- NOTE | 2021-01-13 | ECG_ITS ---
Test Reason : SHORTNESS OF BREATH Blood Pressure : / mmHG Vent. Rate : 095 BPM Atrial Rate : 095 BPM P-R Int : 134 ms QRS Dur : 074 ms QT Int : 370 ms P-R-T Axes : 057 039 040 degrees QTc Int : 464 ms Normal sinus rhythm Normal ECG When compared with ECG of 11-JAN-2021 01:59, No significant change was found Referred By: Rani Valle Electronically Signed By:VIVIAN KOCH
--- NOTE | ~2021-01-13 | XR_ITS ---
EXAMINATION: XR CHEST CLINICAL INFORMATION: Dyspnea. COMPARISON: Chest x-ray 01/11/2021. CT chest 01/11/2021 TECHNIQUE: 2 views of the chest were obtained. FINDINGS: Worsening bilateral airspace opacities. There is increasing density of the airspace disease in both lungs but particularly in the left upper lobe. No pleural effusion or pneumothorax. Cardiac and mediastinal contours are normal. The heart size is normal. XR/XR chest 2V IMPRESSION: Worsening bilateral airspace disease.
[2021-01-13 21:11] VITALS: BP 153/81; PULSE 90; RESP 18; TEMP 37.3; O2SAT 95; BMI 32.6
--- NOTE | 2021-01-13 22:53 | ECG_ITS ---
Test Reason : SOB Blood Pressure : / mmHG Vent. Rate : 084 BPM Atrial Rate : 084 BPM P-R Int : 138 ms QRS Dur : 076 ms QT Int : 382 ms P-R-T Axes : 059 037 044 degrees QTc Int : 451 ms Normal sinus rhythm Normal ECG When compared with ECG of 13-JAN-2021 20:34, No significant change was found Referred By: Vanessa Harrington Electronically Signed By:VIVIAN KOCH
--- NOTE | 2021-01-13 22:55 | ED.SOB ---
HPI - SOB/Dyspnea General Chief Complaint: Dyspnea Stated Complaint: sob congestion Time Seen by Provider: 01/13/21 21:45 Source: patient and old records reviewed Mode of arrival: ambulatory Limitations: no limitations History of Present Illness HPI Narrative: was seen here on 01/11 following heroin overdose on bipap given steroids and narcan to go home with on 01/12 - pulm edema was diagnosis MD elicited complaint: shortness of breath Pertinent past history: aspiration Onset (ago): day(s) (01/11) Context: recent illness (overdose 01/11 requiring bipap sent home on prednisone has not taken it) Timing: progressively worsening Severity: moderate Exacerbating factors: exertion and coughing Relieving factors: rest Known history of: aspiration pneumonia Associated symptoms: cough and sputum production Treatment prior to arrival: none Related Data Home Medications Medication Instructions Recorded Confirmed gabapentin 100 mg capsule 1 cap PO BID 01/14/21 01/14/21 lidocaine 5 % topical patch 1 patch TOPICAL DAILY PRN 01/14/21 01/14/21 pramipexole 0.25 mg tablet 1 tab PO BEDTIME 01/14/21 01/14/21 prednisone 20 mg tablet 2 tab PO DAILY 01/14/21 01/14/21 Allergies Allergy/AdvReac Type Severity Reaction Status Date / Time kiwi [KIWI] Allergy Unknown SWOLLEN Verified 01/13/21 21:13 LIPS Review of Systems Review of Systems: Constitutional : No Fever, pos Chills ENT/Mouth : No sore throat, No Rhinorrhea, No Swallowing Difficulty Eyes: No Eye Pain, No Swelling, No Redness Cardiovascular : pos Chest Pain, positive SOB, No Orthopnea, positive Edema Respiratory : pos Cough, pos Sputum, No Wheezing, positive dyspnea Gastrointestinal : No Nausea, No Vomiting, No Diarrhea, No abdominal Pain, No Hematochezia, No Melena Genitourinary : No Dysuria, No Urinary Frequency, No Hematuria Musculoskeletal : No joint pain, No Myalgias Skin : No Skin Lesions, No rash Neuro : pos Weakness, No Numbness, No Dizziness, No Headache Psych : No Anxiety/Panic, No Depression Heme/Lymph: No Bruising, No Lymphadenopathy Endocrine : No Polyuria, No Polydipsia All other systems reviewed and are negative [facility] Past Medical History Attestation statement: The following information was validated with the patient. Medical History COVID-19 Depression Heroin abuse High cholesterol HTN (hypertension) HTN (hypertension) Intentional weight loss Sudden hearing loss Surgical History No history of previous surgery Family History Family History Father Pancreatic cancer Mother Diabetes Social History Social History Alcohol intake: never Patient Tobacco Use Status: Never used Tobacco Substance Use Type: Heroin Advance Directives: No Advance Directives Information Provided: No service: No Physical Exam Vital Signs: Vital Signs: Last Vital Signs Temp 98.8 F 01/14/21 00:14 Pulse 91 01/14/21 00:14 Resp 19 01/14/21 00:14 BP 161/87 H 01/14/21 00:14 Pulse Ox 86 L 01/14/21 00:19 BMI result Body Mass Index 32.6 Appearance: Alert. Oriented X3. No acute distress. Eyes: Pupils equal, round and reactive to light. ENT: Pharynx normal. Neck: Normal inspection. Neck supple. CVS: Normal heart rate and rhythm. Pulses normal. Respiratory: mild respiratory distress - tachypnea incr wob. Breath sounds diminished with rales diffuse Abdomen: Soft and non-tender. Skin: Skin warm and dry. Normal skin color. Normal skin turgor. Extremities: No lower extremity edema. No calf ttp Neuro: Oriented X 3. No motor deficit. No sensory deficit. Course Course Course Narrative: troponin likely due to recent event and demand from hypoxic event chest pain with cough 86% walking sat became very winded - will require admission MDM - SOB/Dyspnea MDM Narrative Medical decision making narrative: 50 yo male with hx of HTN, here with c/o chills productive cough and diff breathing - he was just seen here for overdose requiring NIPPV given high dose steroids and sent home - he now appears to have aspiration pneumonia at this time labs, cultures, empiric antibiotics, planned admit Lab Data Result diagrams: 01/13/21 23:32 01/13/21 23:32 Labs: Lab Results 01/13/21 01/13/21 01/13/21 Range/Units 23:32 23:32 23:32 WBC 15.7 H (4.8-10.8) X10*3/uL RBC 4.25 L (4.60-5.80) X10*6/uL Hgb 12.8 L (14.0-18.0) g/dl Hct 39.7 L (42.0-52.0) % MCV 93.4 (80.0-98.0) fL MCH 30.1 (27.0-33.0) pg MCHC 32.2 (31.0-36.0) g/dl RDW 14.4 (11.0-16.0) % Plt Count 285 (160-400) X10*3/uL MPV 10.2 (9.4-12.4) fL Immature Gran % (Auto) 1.7 H (0.0-0.4) % Neut % (Auto) 84.0 H (45-73) % Lymph % (Auto) 8.6 L (20-40) % [place] % (Auto) 5.2 (2-11) % Eos % (Auto) 0.4 (0-4) % Baso % (Auto) 0.1 (0-2) % Lymph # (Auto) 1.4 (1.2-4.9) X10*3/uL [place] # (Auto) 0.8 (0.1-1.2) X10*3/uL Eos # (Auto) 0.1 (0.0-0.4) X10*3/uL Baso # (Auto) 0.0 (0.0-0.2) X10*3/uL Abs Immat Gran (auto) 0.26 H (0.00-0.03) X10*3/uL Absolute Neuts (auto) 13.2 H (2.0-8.3) x10*3/uL Absolute Nucleated RBC 0.000 (0.0-0.012) X10*3/uL Nucleated RBC % (auto) 0.0 (0.0-0.2) /100WBC Sodium 143 (135-145) mmol/L Potassium 4.0 D (3.3-5.1) mmol/L Chloride 103 (96-108) mmol/L Carbon Dioxide 29 (22-29) mmol/L Anion Gap 15 (12-20) BUN 30 H (9-16) mg/dL Creatinine 0.90 (0.5-1.4) mg/dL Estim Creat Clear Calc 113.6 Estimated GFR > 60 Random Glucose 84 D (60-115) mg/dL Lactic Acid (0.5-2.0) mmol/L Calcium 9.2 (8.4-10.2) mg/dL Magnesium 2.2 (1.6-2.6) mg/dL Total Bilirubin 0.7 (0.0-1.0) mg/dL Direct Bilirubin 0.2 (0.0-0.5) mg/dL AST 26 (5-37) U/L ALT 44 H (0-40) U/L Alkaline Phosphatase 64 (39-117) U/L Troponin I High Sens (<3.5-35.0) ng/L B-Natriuretic Peptide (<100) pg/mL Total Protein 6.5 (6.5-8.0) g/dL Albumin 3.8 (3.5-5.0) g/dL Lipase 18 (8-78) U/L Urine Color Urine Appearance Urine pH (5.0-8.0) Ur Specific [place] (1.005-1.025) Urine Protein (NEG-TRACE) MG/DL Urine Glucose (UA) (NEG) MG/DL Urine Ketones (NEG) MG/DL Urine Blood (NEG) Urine Nitrite (NEG) Ur Leukocyte Esterase (NEG) COVID-19 (ELBA) Negative (Negative) COVID-19 Clin Com See Note 01/13/21 01/13/21 01/13/21 Range/Units 23:32 23:32 23:32 WBC (4.8-10.8) X10*3/uL RBC (4.60-5.80) X10*6/uL Hgb (14.0-18.0) g/dl Hct (42.0-52.0) % MCV (80.0-98.0) fL MCH (27.0-33.0) pg MCHC (31.0-36.0) g/dl RDW (11.0-16.0) % Plt Count (160-400) X10*3/uL MPV (9.4-12.4) fL Immature Gran % (Auto) (0.0-0.4) % Neut % (Auto) (45-73) % Lymph % (Auto) (20-40) % [place] % (Auto) (2-11) % Eos % (Auto) (0-4) % Baso % (Auto) (0-2) % Lymph # (Auto) (1.2-4.9) X10*3/uL [place] # (Auto) (0.1-1.2) X10*3/uL Eos # (Auto) (0.0-0.4) X10*3/uL Baso # (Auto) (0.0-0.2) X10*3/uL Abs Immat Gran (auto) (0.00-0.03) X10*3/uL Absolute Neuts (auto) (2.0-8.3) x10*3/uL Absolute Nucleated RBC (0.0-0.012) X10*3/uL Nucleated RBC % (auto) (0.0-0.2) /100WBC Sodium (135-145) mmol/L Potassium (3.3-5.1) mmol/L Chloride (96-108) mmol/L Carbon Dioxide (22-29) mmol/L Anion Gap (12-20) BUN (9-16) mg/dL Creatinine (0.5-1.4) mg/dL Estim Creat Clear Calc Estimated GFR Random Glucose (60-115) mg/dL Lactic Acid 1.2 (0.5-2.0) mmol/L Calcium (8.4-10.2) mg/dL Magnesium (1.6-2.6) mg/dL Total Bilirubin (0.0-1.0) mg/dL Direct Bilirubin (0.0-0.5) mg/dL AST (5-37) U/L ALT (0-40) U/L Alkaline Phosphatase (39-117) U/L Troponin I High Sens 287.1 H* (<3.5-35.0) ng/L B-Natriuretic Peptide 122 H (<100) pg/mL Total Protein (6.5-8.0) g/dL Albumin (3.5-5.0) g/dL Lipase (8-78) U/L Urine Color Urine Appearance Urine pH (5.0-8.0) Ur Specific [place] (1.005-1.025) Urine Protein (NEG-TRACE) MG/DL Urine Glucose (UA) (NEG) MG/DL Urine Ketones (NEG) MG/DL Urine Blood (NEG) Urine Nitrite (NEG) Ur Leukocyte Esterase (NEG) COVID-19 (ELBA) (Negative) COVID-19 Clin Com 01/13/21 Range/Units 23:44 WBC (4.8-10.8) X10*3/uL RBC (4.60-5.80) X10*6/uL Hgb (14.0-18.0) g/dl Hct (42.0-52.0) % MCV (80.0-98.0) fL MCH (27.0-33.0) pg MCHC (31.0-36.0) g/dl RDW (11.0-16.0) % Plt Count (160-400) X10*3/uL MPV (9.4-12.4) fL Immature Gran % (Auto) (0.0-0.4) % Neut % (Auto) (45-73) % Lymph % (Auto) (20-40) % [place] % (Auto) (2-11) % Eos % (Auto) (0-4) % Baso % (Auto) (0-2) % Lymph # (Auto) (1.2-4.9) X10*3/uL [place] # (Auto) (0.1-1.2) X10*3/uL Eos # (Auto) (0.0-0.4) X10*3/uL Baso # (Auto) (0.0-0.2) X10*3/uL Abs Immat Gran (auto) (0.00-0.03) X10*3/uL Absolute Neuts (auto) (2.0-8.3) x10*3/uL Absolute Nucleated RBC (0.0-0.012) X10*3/uL Nucleated RBC % (auto) (0.0-0.2) /100WBC Sodium (135-145) mmol/L Potassium (3.3-5.1) mmol/L Chloride (96-108) mmol/L Carbon Dioxide (22-29) mmol/L Anion Gap (12-20) BUN (9-16) mg/dL Creatinine (0.5-1.4) mg/dL Estim Creat Clear Calc Estimated GFR Random Glucose (60-115) mg/dL Lactic Acid (0.5-2.0) mmol/L Calcium (8.4-10.2) mg/dL Magnesium (1.6-2.6) mg/dL Total Bilirubin (0.0-1.0) mg/dL Direct Bilirubin (0.0-0.5) mg/dL AST (5-37) U/L ALT (0-40) U/L Alkaline Phosphatase (39-117) U/L Troponin I High Sens (<3.5-35.0) ng/L B-Natriuretic Peptide (<100) pg/mL Total Protein (6.5-8.0) g/dL Albumin (3.5-5.0) g/dL Lipase (8-78) U/L Urine Color YELLOW Urine Appearance CLEAR Urine pH 7.0 (5.0-8.0) Ur Specific [place] 1.015 (1.005-1.025) Urine Protein NEG (NEG-TRACE) MG/DL Urine Glucose (UA) NEG (NEG) MG/DL Urine Ketones NEG (NEG) MG/DL Urine Blood NEG (NEG) Urine Nitrite NEG (NEG) Ur Leukocyte Esterase NEG (NEG) COVID-19 (ELBA) (Negative) COVID-19 Clin Com ECG Data Attestation: I personally reviewed and interpreted this ECG as follows: ECG interpretation date: 01/13/21 ECG interpretation time: 23:22 Interpretation: Rate: 84 Rhythm: NSR [place]: normal Normal P waves. Normal [place]ER[place]. Normal QRS complex. ST T wave : normal no SONAM qTC: normal prior studies: no acute ischemia The study has been interpreted contemporaneously by me. . Discharge Plan Discharge Clinical Impression: Elevated troponin, Hypoxia Aspiration pneumonia Qualifiers: Aspiration pneumonia type: unspecified Laterality: bilateral Lung location: unspecified part of lung Qualified Code(s): J69.0 - Pneumonitis due to inhalation of food and vomit Patient Disposition: Admitted As Inpatient
[2021-01-13 23:47] LABS: MANUAL DIFF FLAG NO
[2021-01-13 23:49] LABS: Basophils Percent Auto 0.1 % (0-2); Eosinophils Absolute Auto 0.1 X10*3/uL (0.0-0.4); Eosinophils Percent Auto 0.4 % (0-4); Hematocrit 39.7 % (42.0-52.0); Hemoglobin 12.8 g/dl (14.0-18.0); Imm Gran Abs Auto 0.26 X10*3/uL (0.00-0.03); Imm Gran Pct Auto 1.7 % (0.0-0.4); Lymphocytes Absolute Auto 1.4 X10*3/uL (1.2-4.9); Lymphocytes Percent Auto 8.6 % (20-40); Mean Corpuscular HGB Conc 32.2 g/dl (31.0-36.0); Mean Corpuscular Hemoglobin 30.1 pg (27.0-33.0); Mean Corpuscular Volume 93.4 fL (80.0-98.0); Mean Platelet Volume 10.2 fL (9.4-12.4); Monocytes Absolute Auto 0.8 X10*3/uL (0.1-1.2); Monocytes Percent Auto 5.2 % (2-11); Neutrophils Absolute Auto 13.2 x10*3/uL (2.0-8.3); Platelet Count 285 X10*3/uL (160-400); Red Blood Count 4.25 X10*6/uL (4.60-5.80); Red Cell Distribution Width 14.4 % (11.0-16.0); White Blood Count 15.7 X10*3/uL (4.8-10.8)
[2021-01-13 23:54] LABS: Lactic Acid 1.2 mmol/L (0.5-2.0)
[2021-01-14] VITALS (8 sets, daily range): BP systolic 141–161; BP diastolic 75–96; PULSE 69–91; RESP 16–25; TEMP 36.8–37.1; O2SAT 86–98
[2021-01-14] LABS: Appearance Urine CLEAR; Color Urine YELLOW; Glucose Urine UA NEG (NEG); Leukocyte Esterase Urine NEG (NEG); Nitrite Urine NEG (NEG); Specific Gravity - Urine 1.015 (1.005-1.025); Urine Blood NEG (NEG); Urine Ketones NEG (NEG); Urine Protein NEG (NEG-TRACE)
[2021-01-14 00:04] LABS: Alanine Aminotransferase 44 U/L (0-40); Albumin Level 3.8 g/dL (3.5-5.0); Alkaline Phosphatase 64 U/L (39-117); Anion Gap 15 (12-20); Aspartate Amino Transferase 26 U/L (5-37); Bilirubin Direct 0.2 mg/dL (0.0-0.5); Bilirubin Total 0.7 mg/dL (0.0-1.0); Blood Urea Nitrogen 30 mg/dL (9-16); Calcium 9.2 mg/dL (8.4-10.2); Carbon Dioxide 29 mmol/L (22-29); Chloride 103 mmol/L (96-108); Creatinine Clr Calc Pharmacy 113.6; Estimated Glomerular Filt Rate > 60; Glucose Random 84 mg/dL (60-115); Lipase 18 U/L (8-78); Magnesium 2.2 mg/dL (1.6-2.6); Sodium 143 mmol/L (135-145); Total Protein 6.5 g/dL (6.5-8.0)
[2021-01-14 00:10] LABS: B Type Natriuretic Peptide 122 pg/mL (<100)
[2021-01-14 00:16] LABS: COVID-19 Test Negative (Negative); Troponin-I High Sensitivity 287.1 ng/L (<3.5-35.0)
[2021-01-14] MEDS: Piperacillin Sodium/Tazobactam 4.5 GM in 0.9 % Sodium Chloride 100 ML IV (00:23)
[2021-01-14] MEDS: Acetaminophen 325 MG TABLET 650 MG PO (00:24)
--- NOTE | 2021-01-14 00:35 | PC.NURSE ---
Dr Harrington made aware of ambulatory O2 sat and pt's c/o of CP as well as pt's elevated troponin. Pt placed on zoll at bedside. Plan to move pt into room with bedside threat monitoring analyst.
[2021-01-14] MEDS: vancomycin HCL 1,250 MG in 0.9 % Sodium Chloride 250 ML 166.67 MG IV (01:44)
[2021-01-14 02:16] LABS: Troponin-I High Sensitivity 238.1 ng/L (<3.5-35.0)
[2021-01-14] MEDS: Enoxaparin Sodium 40 MG/0.4 ML SYRINGE SUBCUT (02:17)
[2021-01-14] MEDS: Gabapentin 100 MG CAPSULE PO ×3 (02:18→21:40)
--- NOTE | 2021-01-14 03:58 | PC.NURSE ---
Pt resting on stretcher in NAD, breathing with ease on supplemental 2L NC. Pt offers no complaints of pain/discomfort. Pt vanco complete as documented in APR. Pt remains on quality assurance monitor body, NSR. Pt's stretcher in lowest locked position, rails raised, call vargas within reach.
[2021-01-14 04:38] LABS: MANUAL DIFF FLAG NO
[2021-01-14 04:39] LABS: Basophils Percent Auto 0.1 % (0-2); Eosinophils Absolute Auto 0.1 X10*3/uL (0.0-0.4); Eosinophils Percent Auto 0.8 % (0-4); Hematocrit 34.3 % (42.0-52.0); Imm Gran Abs Auto 0.24 X10*3/uL (0.00-0.03); Imm Gran Pct Auto 1.8 % (0.0-0.4); Lymphocytes Absolute Auto 1.5 X10*3/uL (1.2-4.9); Lymphocytes Percent Auto 11.4 % (20-40); Mean Corpuscular HGB Conc 32.1 g/dl (31.0-36.0); Mean Corpuscular Hemoglobin 29.6 pg (27.0-33.0); Mean Corpuscular Volume 92.5 fL (80.0-98.0); Mean Platelet Volume 10.1 fL (9.4-12.4); Monocytes Absolute Auto 0.7 X10*3/uL (0.1-1.2); Neutrophils Absolute Auto 10.5 x10*3/uL (2.0-8.3); Neutrophils Percent Auto 80.9 % (45-73); Platelet Count 254 X10*3/uL (160-400); Red Blood Count 3.71 X10*6/uL (4.60-5.80); Red Cell Distribution Width 14.3 % (11.0-16.0)
[2021-01-14 05:06] LABS: Anion Gap 12 (12-20); Blood Urea Nitrogen 28 mg/dL (9-16); Calcium 8.6 mg/dL (8.4-10.2); Carbon Dioxide 30 mmol/L (22-29); Chloride 103 mmol/L (96-108); Creatinine Clr Calc Pharmacy 116.2; Estimated Glomerular Filt Rate > 60; Glucose Random 84 mg/dL (60-115); Sodium 141 mmol/L (135-145)
[2021-01-14] MEDS: Ampicillin Sodium/Sulbactam Na 3 GM in 0.9 % Sodium Chloride 100 ML IV ×3 (05:44→21:41)
--- NOTE | 2021-01-14 06:27 | P.HPHOSP_ITS ---
History of Present Illness Date of Service: 01/14/21 Chief Complaint: shortness of breath, cough this is a 50-year-old male with past medical history of opioid use disorder with recent OD, hypertension, depression who presents to the hospital with complaints of shortness of breath as well as cough. Patient was discharged from the hospital on 01 12 after being admitted for hypoxic respiratory failure secondary to drug overdose. on the previous admission patient found to have acute pulmonary edema as well as hypercapnic respiratory failure. Intensive care team treated patient with 1000 mg of methylprednisone with improvement of patient's respiratory status. He was sent home with prednisone 40 mg daily, was also treated with IV Lasix with good response. patient returns stating that he continued to have cough, and no has increased shortness of breath, has chills, no cough, no chest pain although reports sharp pain post coughing that is all over his chest. patient complaining of constipation, no urinary symptoms and no lower extremity edema. On arrival to the ED patient hemodynamically stable with vital significant for a temp of 98.5?, heart rate of 77, respiratory rate of 12 of, blood pressure of 140s/80s, satting 86% on room air labs are significant for WBC count of 15.7, hemoglobin of 12.8, BUN of 30, troponin of 287, BNP of 122, UA negative, COVID-19 negative, EKG shows no ST T-wave changes, X-ray shows worsening bilateral airspace disease patient will be admitted for further management Review of Systems Review of Systems: Yes all other systems are reviewed and are negative [facility] Medical History COVID-19 Depression Heroin abuse High cholesterol HTN (hypertension) HTN (hypertension) Intentional weight loss Sudden hearing loss Family History Father Pancreatic cancer Mother Diabetes Surgical History No history of previous surgery Social History Household Members: Significant Other Housing: Apartment Do you presently have visiting nurse or other home services: No Alcohol intake: never Patient Tobacco Use Status: Never used Tobacco Use of substances other than those prescribed or required for medical reasons: Yes Substance Use Type: Heroin Substance Use Type Other:: fentanyl Substance Use Frequency: Monthly Last Used Substance: Days (ago) Currently Displaying Signs/Symptoms of Drug Intoxication Withdrawal: No Any prior treatment program specific to substance use: No Have you been hit, kicked, punched, or otherwise hurt by someone within the past year? If so, by whom?: No Do you feel safe in your current relationship?: Yes Is there a partner from a previous relationship who is making you feel unsafe now?: No Are you made to feel afraid or neglected: No Advance Directives: No Advance Directives Information Provided: No Do you have thoughts of harming others: None Do you have a plan to hurt others: No Plan Recently lost weight without trying: No Eating poorly because of decreased appetite: No Nutrition Risks: No Nutritional Risk Poor oral hygiene: No service: No Meds Allergies Allergy/AdvReac Type Severity Reaction Status Date / Time kiwi [KIWI] Allergy Unknown SWOLLEN Verified 01/13/21 21:13 LIPS Active Medications: Current Medications Acetaminophen (Acetaminophen 325 Mg Tablet) 650 mg PO Q6H PRN PRN Reason: Pain, Mild (Pain Scale 1-3) Docusate Sodium (Docusate Sodium 100 Mg Capsule) 100 mg PO DAILY PRN PRN Reason: Constipation Enoxaparin Sodium (Enoxaparin Sodium 40 Mg/0.4 Ml Syringe) 40 mg SUBCUT Q24H [facility] Last Admin: 01/14/21 02:17 Dose: 40 mg Documented by: Gabapentin (Gabapentin 100 Mg Capsule) 100 mg PO BID [facility] Last Admin: 01/14/21 02:18 Dose: 100 mg Documented by: Ampicillin Sodium/Sulbactam (Sodium 3 gm/ Sodium Chloride) 100 mls @ 200 mls/hr IV Q8H [facility] Last Infusion: 01/14/21 06:20 Dose: Infused Documented by: Lidocaine (Lidocaine 4 % Patch Adh..Patch) 1 patch TRANSDERMA DAILY PRN PRN Reason: Pain, Moderate (Pain Scale 4-6 Ondansetron HCl (Ondansetron Hcl 4 Mg/2 Ml Vial) 4 mg IVPUSH Q8H PRN PRN Reason: Nausea and Vomiting Pharmacy Consult (Consult Rx Perform Med Rec) 1 each MISCELLANE ONCE PRN PRN Reason: Consult order Pramipexole Dihydrochloride (Pramipexole Di-Hcl 0.25 Mg Tablet) 0.25 mg PO BEDTIME [facility] Prednisone (Prednisone 20 Mg Tablet) 40 mg PO DAILY [facility] Sodium Chloride (0.9 % Sodium Chloride Flush 3 Ml Syringe) 3 ml IVFLUSH QSHIFT [facility] Home Medications Medication Instructions Recorded Confirmed Last Taken Type gabapentin 100 mg capsule 1 cap PO BID 01/14/21 01/14/21 Unknown History lidocaine 5 % topical patch 1 patch TOPICAL DAILY PRN 01/14/21 01/14/21 Unknown History pramipexole 0.25 mg tablet 1 tab PO BEDTIME 01/14/21 01/14/21 Unknown History prednisone 20 mg tablet 2 tab PO DAILY 01/14/21 01/14/21 Unknown History Physical Exam Vital Signs and Narrative: Vital Signs: Last Vital Signs Temp 98.8 F 01/14/21 04:00 Pulse 78 01/14/21 04:00 Resp 24 H 01/14/21 04:00 BP 147/81 H 01/14/21 04:00 Pulse Ox 98 01/14/21 04:00 BMI result Body Mass Index 32.6 Const: General: cooperative and no acute distress Orientation/consciousness: patient oriented x3 Eyes: General: appearance normal, both eyes and all related structures Pupils: Equal, round and reactive pupils present Resp: Other: crackles bilaterally Effort & Inspection: normal respiratory effort Cardio: Rate: regular rate Rhythm: regular rhythm GI: Palpation (GI): Soft to palpation Auscultation: normal bowel sounds Skin: General skin exam: no rashes or lesions noted Neuro: General: patient oriented x3 Cranial nerves: Yes Equal, round and reactive pupils present Cognition (Neuro): normal cognition Extrem: General: Yes normal to inspection and Yes no pedal edema Results Labs CBC and Chem 7: 01/14/21 04:32 01/14/21 04:32 Labs: Laboratory Results - last 24 hr 01/13/21 01/13/21 01/13/21 23:32 23:32 23:32 MCV 93.4 MCH 30.1 MCHC 32.2 RDW 14.4 Plt Count 285 MPV 10.2 Immature Gran % (Auto) 1.7 H Neut % (Auto) 84.0 H Lymph % (Auto) 8.6 L [place] % (Auto) 5.2 Eos % (Auto) 0.4 Baso % (Auto) 0.1 Lymph # (Auto) 1.4 [place] # (Auto) 0.8 Eos # (Auto) 0.1 Baso # (Auto) 0.0 Abs Immat Gran (auto) 0.26 H Absolute Neuts (auto) 13.2 H Absolute Nucleated RBC 0.000 Nucleated RBC % (auto) 0.0 Anion Gap 15 Estim Creat Clear Calc 113.6 Estimated GFR > 60 Random Glucose 84 D Lactic Acid Calcium 9.2 Magnesium 2.2 Total Bilirubin 0.7 Direct Bilirubin 0.2 AST 26 ALT 44 H Alkaline Phosphatase 64 Troponin I High Sens B-Natriuretic Peptide Total Protein 6.5 Albumin 3.8 Lipase 18 Urine Color Urine Appearance Urine pH Ur Specific [place] Urine Protein Urine Glucose (UA) Urine Ketones Urine Blood Urine Nitrite Ur Leukocyte Esterase COVID-19 ([facility]) Negative COVID-19 Clin Com See Note 01/13/21 01/13/21 01/13/21 23:32 23:32 23:32 MCV MCH MCHC RDW Plt Count MPV Immature Gran % (Auto) Neut % (Auto) Lymph % (Auto) [place] % (Auto) Eos % (Auto) Baso % (Auto) Lymph # (Auto) [place] # (Auto) Eos # (Auto) Baso # (Auto) Abs Immat Gran (auto) Absolute Neuts (auto) Absolute Nucleated RBC Nucleated RBC % (auto) Anion Gap Estim Creat Clear Calc Estimated GFR Random Glucose Lactic Acid 1.2 Calcium Magnesium Total Bilirubin Direct Bilirubin AST ALT Alkaline Phosphatase Troponin I High Sens 287.1 H* B-Natriuretic Peptide 122 H Total Protein Albumin Lipase Urine Color Urine Appearance Urine pH Ur Specific [place] Urine Protein Urine Glucose (UA) Urine Ketones Urine Blood Urine Nitrite Ur Leukocyte Esterase COVID-19 ([facility]) COVID-19 Clin Com 01/13/21 01/14/21 01/14/21 23:44 01:41 04:32 MCV 92.5 MCH 29.6 MCHC 32.1 RDW 14.3 Plt Count 254 MPV 10.1 Immature Gran % (Auto) 1.8 H Neut % (Auto) 80.9 H Lymph % (Auto) 11.4 L [place] % (Auto) 5.0 Eos % (Auto) 0.8 Baso % (Auto) 0.1 Lymph # (Auto) 1.5 [place] # (Auto) 0.7 Eos # (Auto) 0.1 Baso # (Auto) 0.0 Abs Immat Gran (auto) 0.24 H Absolute Neuts (auto) 10.5 H Absolute Nucleated RBC 0.000 Nucleated RBC % (auto) 0.0 Anion Gap Estim Creat Clear Calc Estimated GFR Random Glucose Lactic Acid Calcium Magnesium Total Bilirubin Direct Bilirubin AST ALT Alkaline Phosphatase Troponin I High Sens 238.1 H* B-Natriuretic Peptide Total Protein Albumin Lipase Urine Color YELLOW Urine Appearance CLEAR Urine pH 7.0 Ur Specific [place] 1.015 Urine Protein NEG Urine Glucose (UA) NEG Urine Ketones NEG Urine Blood NEG Urine Nitrite NEG Ur Leukocyte Esterase NEG COVID-19 ([facility]) COVID-19 Clin Com 01/14/21 04:32 MCV MCH MCHC RDW Plt Count MPV Immature Gran % (Auto) Neut % (Auto) Lymph % (Auto) [place] % (Auto) Eos % (Auto) Baso % (Auto) Lymph # (Auto) [place] # (Auto) Eos # (Auto) Baso # (Auto) Abs Immat Gran (auto) Absolute Neuts (auto) Absolute Nucleated RBC Nucleated RBC % (auto) Anion Gap 12 Estim Creat Clear Calc 116.2 Estimated GFR > 60 Random Glucose 84 Lactic Acid Calcium 8.6 D Magnesium Total Bilirubin Direct Bilirubin AST ALT Alkaline Phosphatase Troponin I High Sens B-Natriuretic Peptide Total Protein Albumin Lipase Urine Color Urine Appearance Urine pH Ur Specific [place] Urine Protein Urine Glucose (UA) Urine Ketones Urine Blood Urine Nitrite Ur Leukocyte Esterase COVID-19 ([facility]) COVID-19 Clin Com Imaging Radiologist's Impressions: Impressions Chest X-Ray 01/13/21 22:00 IMPRESSION: Worsening bilateral airspace disease. Assessment and Plan (1) Aspiration pneumonia: Qualifiers: Aspiration pneumonia type: unspecified Laterality: bilateral Lung location: unspecified part of lung Qualified Code(s): J69.0 - Pneumonitis due to inhalation of food and vomit Status: Acute (2) Elevated troponin: Status: Acute (3) Acute respiratory failure with hypoxia: Status: Acute 50-year-old male with past medical history of drug overdose recently admitted for hypoxic hypercapnic respiratory failure secondary to drug overdose presents to the hospital with complaints of worsening shortness of breath, cough. # Acute hypoxic respiratory failure - 86% on room air - on recent admission for OD the reports by EMS of vomiting at the scene - most likely due to aspiration pneumonia aspiration - will treat with Unasyn - titrate O2 down as tolerated - continue taper prednisone # aspiration pneumonia - report of vomiting the episode of OD 3 days ago - will treat with Unasyn - follow cultures - monitor respiratory status # elevated troponin - most likely type 2 in the setting of hypoxia - no delta, no EKG changes - monitor in telemetry # hypertension - elevated - does not appear to be on any medications - at this time will monitor, may need to be discharged on antihypertensives if remains hypertensive DVT prophylaxis: Lovenox Quality Stroke Does the patient have a stroke diagnosis?: No VTE Prior VTE?: No VTE Risk Level:: Medical - moderate - high VTE Device Contraindication: Treatment Not Indicated VTE Drug Contraindication: N/A - Med Ordered
[2021-01-14] MEDS: 0.9 % Sodium Chloride Flush 3 ML SYRINGE IVFLUSH (09:42)
[2021-01-14] MEDS: polyethylene glycoL 3350 17 GM POWD.PACK PO (09:42)
[2021-01-14] MEDS: predniSONE 20 MG TABLET 40 MG PO (09:42)
--- NOTE | 2021-01-14 14:59 | PC.NURSE ---
pt alert and oriented, vss. pt denies pain. denies sob/headache/dizziness. no n/v. LSCTA. iv patent, antibiotic infusing without difficulty, pt tolerating well. breakfast and lunch given. pt awaiting bed assignment.
--- NOTE | 2021-01-14 21:19 | PC.NURSE ---
pt a&o, no sob or chest pain at this time. pt able to speak in full sentence, with no retractions.
[2021-01-14] MEDS: Pramipexole Di-HCL 0.25 MG TABLET PO (21:40)
--- NOTE | 2021-01-14 21:52 | PC.NURSE ---
Medication per Mar. Pt reports improvement. Will continue to monitor.
--- NOTE | 2021-01-14 23:50 | PC.NURSE ---
[facility] unable to take report at this time.
[2021-01-15] VITALS (10 sets, daily range): BP systolic 140–171; BP diastolic 72–93; PULSE 60–93; RESP 15–20; TEMP 36.6–37.2; O2SAT 92–98
[2021-01-15] MEDS: amLODIPine Besylate 5 MG TABLET PO ×2 (05:16→12:49)
[2021-01-15] MEDS: Ampicillin Sodium/Sulbactam Na 3 GM in 0.9 % Sodium Chloride 100 ML IV ×3 (05:37→21:16)
[2021-01-15 06:45] LABS: Hematocrit 34.8 % (42.0-52.0); Hemoglobin 11.5 g/dl (14.0-18.0); Mean Corpuscular Volume 90.9 fL (80.0-98.0); Platelet Count 270 X10*3/uL (160-400); Red Blood Count 3.83 X10*6/uL (4.60-5.80); Red Cell Distribution Width 13.6 % (11.0-16.0); White Blood Count 12.6 X10*3/uL (4.8-10.8)
[2021-01-15 07:34] LABS: Anion Gap 12 (12-20); Blood Urea Nitrogen 23 mg/dL (9-16); Calcium 9.3 mg/dL (8.4-10.2); Carbon Dioxide 31 mmol/L (22-29); Chloride 102 mmol/L (96-108); Creatinine Clr Calc Pharmacy 120.3; Estimated Glomerular Filt Rate > 60; Glucose Random 103 mg/dL (60-115); Potassium 4.6 mmol/L (3.3-5.1); Sodium 140 mmol/L (135-145)
--- NOTE | 2021-01-15 09:19 | MHC.CM.PN ---
CM met with Patient and his Girlfriend at bedside.Patient lives in an apartment with his Mother and he is functionally independent.Patient's goal for dc is to return home/no services.CM has initiated and will follow for dc planning.Patient may benefit from a Care Team Consult r/t Opioid Use D/o and recent OD. PCP is DR. Esther Greer.
[2021-01-15] MEDS: Gabapentin 100 MG CAPSULE PO ×2 (10:02→21:16)
[2021-01-15] MEDS: predniSONE 20 MG TABLET 40 MG PO (10:02)
[2021-01-15] MEDS: 0.9 % Sodium Chloride Flush 3 ML SYRINGE IVFLUSH ×2 (10:02→21:20)
--- NOTE | 2021-01-15 11:30 | HO.PM.IMPN ---
Subjective Subjective Date of Service: 01/15/21 Interval History: the patient was seen and evaluated this morning Laying in bed, feels mild improvement but still having difficulty breathing and coughing Denies any fever, chills but still reporting dyspnea No reported other overnight events. Systemic review: No fever, chills or weakness No chest pain, palpitation Dyspnea on exertion, coughing No abdominal pain, nausea or vomiting No urinary symptoms No any rash or wounds Physical Exam Vital Signs: Vital Signs: Last Vital Signs Temp 98.8 F 01/15/21 08:00 Pulse 67 01/15/21 08:00 Resp 18 01/15/21 08:00 BP 153/93 H 01/15/21 08:00 Pulse Ox 98 01/15/21 08:00 BMI result Body Mass Index 32.6 Const: Other: Constitutional : Alert, oriented, reported mild respiratory distress with ambulation Neck : Normal inspection, Supple Cardiovascular : RRR, S1 S2, no lower extremity edema Respiratory : Decreased bilateral air entry, basal bilateral crackles, bilateral expiratory wheezes Gastrointestinal: soft, lax, Normal bowel sounds, Non tender Skin : Warm, Dry Neurological : Alert & oriented x3, No focal deficit Objective Data Active Medications Acetaminophen (Acetaminophen 325 Mg Tablet) 650 mg PO Q6H PRN PRN Reason: Pain, Mild (Pain Scale 1-3) Albuterol/Ipratropium (Albuterol/Iprat 2.5/0.5mg 3 Ml Ampul.Neb) 3 ml INHALE RQ6H WHILE AWAKE [facility] Last Admin: 01/15/21 10:02 Dose: Not Given Documented by: ANNELIESE Non-Admin Reason: pt not avail Docusate Sodium (Docusate Sodium 100 Mg Capsule) 100 mg PO DAILY PRN PRN Reason: Constipation Enoxaparin Sodium (Enoxaparin Sodium 40 Mg/0.4 Ml Syringe) 40 mg SUBCUT Q24H [facility] Last Admin: 01/15/21 03:10 Dose: Not Given Documented by: RICO Non-Admin Reason: Patient Refused Gabapentin (Gabapentin 100 Mg Capsule) 100 mg PO BID [facility] Last Admin: 01/15/21 10:02 Dose: 100 mg Documented by: DUSTIN Ampicillin Sodium/Sulbactam (Sodium 3 gm/ Sodium Chloride) 100 mls @ 200 mls/hr IV Q8H [facility] Last Infusion: 01/15/21 06:41 Dose: 0 mls/hr Documented by: RICO Lidocaine (Lidocaine 4 % Patch Adh..Patch) 1 patch TRANSDERMA DAILY PRN PRN Reason: Pain, Moderate (Pain Scale 4-6 Ondansetron HCl (Ondansetron Hcl 4 Mg/2 Ml Vial) 4 mg IVPUSH Q8H PRN PRN Reason: Nausea and Vomiting Pharmacy Consult (Consult Rx Perform Med Rec) 1 each MISCELLANE ONCE PRN PRN Reason: Consult order Polyethylene Glycol (Polyethylene Glycol 3350 17 Gm Powd.Pack) 17 gm PO DAILY [facility] Last Admin: 01/15/21 10:01 Dose: Not Given Documented by: DUSTIN Non-Admin Reason: Patient Refused Pramipexole Dihydrochloride (Pramipexole Di-Hcl 0.25 Mg Tablet) 0.25 mg PO BEDTIME [facility] Last Admin: 01/14/21 21:40 Dose: 0.25 mg Documented by: JOSE L Prednisone (Prednisone 20 Mg Tablet) 40 mg PO DAILY [facility] Last Admin: 01/15/21 10:02 Dose: 40 mg Documented by: DUSTIN Sodium Chloride (0.9 % Sodium Chloride Flush 3 Ml Syringe) 3 ml IVFLUSH QSHIFT [facility] Last Admin: 01/15/21 10:02 Dose: 3 ml Documented by: DUSTIN Labs CBC & Chem 7: 01/15/21 06:37 01/15/21 06:37 Labs: Laboratory Results - last 24 hr 01/15/21 01/15/21 06:37 06:37 MCV 90.9 MCH 30.0 MCHC 33.0 RDW 13.6 Plt Count 270 MPV 10.0 Absolute Nucleated RBC 0.000 Nucleated RBC % (auto) 0.0 Anion Gap 12 Estim Creat Clear Calc 120.3 Estimated GFR > 60 Random Glucose 103 Calcium 9.3 D Microbiology Microbiology Results: Microbiology 01/13/21 23:32 Blood Culture - Preliminary Blood - Venous Prelim: GPC Gram Stain only 01/13/21 23:44 Blood Culture - Preliminary Blood - Venous No growth after 24 hours. Assessment and Plan (1) Acute respiratory failure with hypoxia: Status: Acute (2) Aspiration pneumonia: Status: Acute (3) Pneumonitis: Status: Acute (4) Uncontrolled hypertension: Status: Acute Assessment and Plan: 50-year-old male with past medical history of drug overdose recently admitted for hypoxic hypercapnic respiratory failure secondary to drug overdose presents to the hospital with complaints of worsening shortness of breath, cough. # Acute hypoxic respiratory failure 2/2 aspiration pneumonia Cultures still pending Continue IV Unasyn titrate O2 down as tolerated # aspiration pneumonitis Result of vomiting the episode of OD Use prednisone DuoNeb nebulizer # elevated troponin type 2 in the setting of hypoxia no EKG changes monitor in telemetry # uncontrolled hypertension Start amlodipine 5 mg DVT prophylaxis: Lovenox Quality Stroke Does the patient have a stroke diagnosis?: No VTE Prior VTE?: No VTE Risk Level:: Medical - moderate - high VTE Device Contraindication: Treatment Not Indicated VTE Drug Contraindication: N/A - Med Ordered
[2021-01-15] MEDS: Albuterol/Iprat 2.5/0.5MG 3 ML AMPUL.NEB INHALE ×2 (14:49→18:54)
[2021-01-15] MEDS: Pramipexole Di-HCL 0.25 MG TABLET PO (21:16)
[2021-01-16] VITALS (12 sets, daily range): BP systolic 127–148; BP diastolic 68–88; PULSE 72–118; RESP 18–20; TEMP 36.4–37.3; O2SAT 94–98
[2021-01-16] MEDS: Enoxaparin Sodium 40 MG/0.4 ML SYRINGE SUBCUT (02:46)
[2021-01-16 05:44] LABS: Hematocrit 36.2 % (42.0-52.0); Hemoglobin 11.8 g/dl (14.0-18.0); Mean Corpuscular HGB Conc 32.6 g/dl (31.0-36.0); Mean Corpuscular Hemoglobin 29.4 pg (27.0-33.0); Mean Corpuscular Volume 90.3 fL (80.0-98.0); Mean Platelet Volume 10.6 fL (9.4-12.4); Platelet Count 316 X10*3/uL (160-400); Red Blood Count 4.01 X10*6/uL (4.60-5.80); Red Cell Distribution Width 13.6 % (11.0-16.0); White Blood Count 15.7 X10*3/uL (4.8-10.8)
[2021-01-16] MEDS: Ampicillin Sodium/Sulbactam Na 3 GM in 0.9 % Sodium Chloride 100 ML IV ×3 (05:45→20:17)
[2021-01-16 06:01] LABS: Anion Gap 13 (12-20); Blood Urea Nitrogen 21 mg/dL (9-16); Calcium 9.1 mg/dL (8.4-10.2); Carbon Dioxide 29 mmol/L (22-29); Chloride 103 mmol/L (96-108); Creatinine Clr Calc Pharmacy 136.3; Estimated Glomerular Filt Rate > 60; Glucose Random 91 mg/dL (60-115); Potassium 4.1 mmol/L (3.3-5.1); Sodium 141 mmol/L (135-145)
[2021-01-16] MEDS: predniSONE 20 MG TABLET 40 MG PO (08:01)
[2021-01-16] MEDS: Gabapentin 100 MG CAPSULE PO ×2 (08:01→20:17)
[2021-01-16] MEDS: polyethylene glycoL 3350 17 GM POWD.PACK PO (08:02)
[2021-01-16] MEDS: amLODIPine Besylate 5 MG TABLET PO (08:02)
[2021-01-16] MEDS: Albuterol/Iprat 2.5/0.5MG 3 ML AMPUL.NEB INHALE ×3 (08:19→19:35)
--- NOTE | 2021-01-16 11:10 | P.PNIM_ITS ---
Subjective Subjective Date of Service: 01/16/21 Interval History: The patient was seen and evaluated this morning Laying in bed, feels shortness of breath and dyspnea with exertion still having difficulty breathing and coughing Denies any fever, chills but still reporting dyspnea No reported other overnight events. Systemic review: No fever, chills or weakness No chest pain, palpitation Dyspnea on exertion, coughing No abdominal pain, nausea or vomiting No urinary symptoms No any rash or wounds Physical Exam Vital Signs: Vital Signs: Last Vital Signs Temp 98.3 F 01/16/21 07:41 Pulse 76 01/16/21 08:21 Resp 18 01/16/21 07:41 BP 142/88 H 01/16/21 08:02 Pulse Ox 94 01/16/21 07:41 BMI result Body Mass Index 32.6 Const: Other: Constitutional : Alert, oriented, reported mild respiratory distress with ambulation Neck : Normal inspection, Supple Cardiovascular : RRR, S1 S2, no lower extremity edema Respiratory : Decreased bilateral air entry, decreased basal bilateral crackles, improved bilateral expiratory wheezes Gastrointestinal: soft, lax, Normal bowel sounds, Non tender Skin : Warm, Dry Neurological : Alert & oriented x3, No focal deficit Objective Data Active Medications Acetaminophen (Acetaminophen 325 Mg Tablet) 650 mg PO Q6H PRN PRN Reason: Pain, Mild (Pain Scale 1-3) Albuterol/Ipratropium (Albuterol/Iprat 2.5/0.5mg 3 Ml Ampul.Neb) 3 ml INHALE RQ6H WHILE AWAKE [facility] Last Admin: 01/16/21 08:19 Dose: 3 ml Documented by: JOSEE Amlodipine Besylate (Amlodipine Besylate 5 Mg Tablet) 5 mg PO DAILY [facility]; Protocol Last Admin: 01/16/21 08:02 Dose: 5 mg Documented by: ARTEM Docusate Sodium (Docusate Sodium 100 Mg Capsule) 100 mg PO DAILY PRN PRN Reason: Constipation Enoxaparin Sodium (Enoxaparin Sodium 40 Mg/0.4 Ml Syringe) 40 mg SUBCUT Q24H [facility] Last Admin: 01/16/21 02:46 Dose: 40 mg Documented by: HORACIO Gabapentin (Gabapentin 100 Mg Capsule) 100 mg PO BID [facility] Last Admin: 01/16/21 08:01 Dose: 100 mg Documented by: ARTEM Ampicillin Sodium/Sulbactam (Sodium 3 gm/ Sodium Chloride) 100 mls @ 200 mls/hr IV Q8H [facility] Last Infusion: 01/16/21 06:24 Dose: 0 mls/hr Documented by: HORACIO Lidocaine (Lidocaine 4 % Patch Adh..Patch) 1 patch TRANSDERMA DAILY PRN PRN Reason: Pain, Moderate (Pain Scale 4-6 Ondansetron HCl (Ondansetron Hcl 4 Mg/2 Ml Vial) 4 mg IVPUSH Q8H PRN PRN Reason: Nausea and Vomiting Pharmacy Consult (Consult Rx Perform Med Rec) 1 each MISCELLANE ONCE PRN PRN Reason: Consult order Polyethylene Glycol (Polyethylene Glycol 3350 17 Gm Powd.Pack) 17 gm PO DAILY [facility] Last Admin: 01/16/21 08:02 Dose: 17 gm Documented by: ARTEM Pramipexole Dihydrochloride (Pramipexole Di-Hcl 0.25 Mg Tablet) 0.25 mg PO BEDTIME [facility] Last Admin: 01/15/21 21:16 Dose: 0.25 mg Documented by: HORACIO Prednisone (Prednisone 20 Mg Tablet) 40 mg PO DAILY [facility] Last Admin: 01/16/21 08:01 Dose: 40 mg Documented by: ARTEM Sodium Chloride (0.9 % Sodium Chloride Flush 3 Ml Syringe) 3 ml IVFLUSH QSHIFT [facility] Last Admin: 01/15/21 21:20 Dose: 3 ml Documented by: HORACIO Labs CBC & Chem 7: 01/16/21 04:57 01/16/21 04:58 Labs: Laboratory Results - last 24 hr 01/16/21 01/16/21 04:57 04:58 MCV 90.3 MCH 29.4 MCHC 32.6 RDW 13.6 Plt Count 316 MPV 10.6 Absolute Nucleated RBC 0.000 Nucleated RBC % (auto) 0.0 Anion Gap 13 Estim Creat Clear Calc 136.3 Estimated GFR > 60 Random Glucose 91 Calcium 9.1 Microbiology Microbiology Results: Microbiology 01/13/21 23:44 Blood Culture - Preliminary Blood - Venous No growth after 48 hours. 01/13/21 23:32 Blood Culture - Preliminary Blood - Venous Prelim: GPC Gram Stain only Assessment and Plan (1) Uncontrolled hypertension: Status: Acute (2) Pneumonitis: Status: Acute (3) Acute respiratory failure with hypoxia: Status: Acute (4) Aspiration pneumonia: Status: Acute Assessment and Plan: 50-year-old male with past medical history of drug overdose recently admitted for hypoxic hypercapnic respiratory failure secondary to drug overdose presents to the hospital with complaints of worsening shortness of breath, cough. # Acute hypoxic respiratory failure , resolved # 2/2 aspiration pneumonia Cultures : 1 bottle growing GPC, likely contamination Continue IV Unasyn titrate O2 down as tolerated # aspiration pneumonitis Result of vomiting the episode of OD Use prednisone DuoNeb nebulizer # elevated troponin type 2 in the setting of hypoxia no EKG changes monitor in telemetry # uncontrolled hypertension Still elevated , Better controlled Start amlodipine 5 mg DVT prophylaxis: Lovenox Quality Stroke Does the patient have a stroke diagnosis?: No VTE Prior VTE?: No VTE Risk Level:: Medical - moderate - high VTE Device Contraindication: Treatment Not Indicated VTE Drug Contraindication: N/A - Med Ordered
[2021-01-16] MEDS: 0.9 % Sodium Chloride Flush 3 ML SYRINGE IVFLUSH ×3 (12:28→20:20)
[2021-01-16] MEDS: Pramipexole Di-HCL 0.25 MG TABLET PO (20:17)
[2021-01-17 03:12] VITALS: BP 120/64; PULSE 74; RESP 18; TEMP 36.9; O2SAT 94
[2021-01-17] MEDS: Ampicillin Sodium/Sulbactam Na 3 GM in 0.9 % Sodium Chloride 100 ML IV (05:40)
[2021-01-17 06:58] VITALS: BP 124/83; PULSE 76; RESP 18; TEMP 36.6; O2SAT 96
[2021-01-17 07:15] LABS: Hematocrit 41.1 % (42.0-52.0); Hemoglobin 13.3 g/dl (14.0-18.0); Mean Corpuscular HGB Conc 32.4 g/dl (31.0-36.0); Mean Corpuscular Volume 92.8 fL (80.0-98.0); Mean Platelet Volume 10.2 fL (9.4-12.4); Platelet Count 391 X10*3/uL (160-400); Red Blood Count 4.43 X10*6/uL (4.60-5.80); Red Cell Distribution Width 13.9 % (11.0-16.0); White Blood Count 12.5 X10*3/uL (4.8-10.8)
[2021-01-17] MEDS: Albuterol/Iprat 2.5/0.5MG 3 ML AMPUL.NEB INHALE (08:16)
[2021-01-17 08:17] VITALS: PULSE 763; O2SAT 96
[2021-01-17 09:11] VITALS: BP 124/83; PULSE 76
[2021-01-17] MEDS: 0.9 % Sodium Chloride Flush 3 ML SYRINGE IVFLUSH (09:11)
[2021-01-17] MEDS: predniSONE 20 MG TABLET 40 MG PO (09:11)
[2021-01-17] MEDS: Gabapentin 100 MG CAPSULE PO (09:11)
[2021-01-17] MEDS: amLODIPine Besylate 5 MG TABLET PO (09:11)
[2021-01-17] MEDS: polyethylene glycoL 3350 17 GM POWD.PACK PO (09:12)
--- NOTE | 2021-01-17 09:18 | PM.DS ---
DS: Providers Provider Date of Service: 01/17/21 Date of admission: 01/14/21 00:51 Primary care physician: Esther Greer MD DS: Diagnosis Discharge Diagnosis (1) Uncontrolled hypertension: Status: Acute (2) Pneumonitis: Status: Acute (3) Acute respiratory failure with hypoxia: Status: Acute (4) Aspiration pneumonia: Status: Acute DS: Summary Hospital Course Hospital Course: Admission note HPI ?this is a 50-year-old male with past medical history of opioid use disorder with recent OD, hypertension, depression who presents to the hospital with complaints of shortness of breath as well as cough.? Patient was discharged from the hospital on 01 12 after being admitted for hypoxic respiratory failure secondary to drug overdose.? on the previous admission patient found to have acute pulmonary edema as well as hypercapnic respiratory failure.? Intensive care team treated patient with 1000 mg of methylprednisone with improvement of patient's respiratory status.? He was sent home with prednisone 40 mg daily, was also treated with IV Lasix with good response.? patient returns stating that he continued to have cough, and no has increased shortness of breath, has chills, no cough, no chest pain although reports sharp pain post coughing that is all over his chest. ?patient complaining of? constipation, no urinary symptoms and no lower extremity edema. ? On arrival to the ED patient hemodynamically stable with vital significant for a temp of 98.5?, heart rate of 77, respiratory rate of 12 of, blood pressure of 140s/80s, satting 86% on room air ?labs are significant for WBC count of 15.7, hemoglobin of 12.8, BUN of 30, troponin of 287, BNP of 122, UA negative, COVID-19 negative, ?EKG shows no ST T-wave changes, X-ray shows worsening bilateral airspace disease Hospital Course The patient was admitted as he was found hypoxic on room air. Images were concerning for possible aspiration pneumonia/pneumonitis. Treated with IV antibiotics of Unasyn and started on IV steroids with bronchodilator nebulizers. He responded well to the treatment over the course of hospital stay and was was weaned off the oxygen and able to ambulate on room air with no reported fevers. Blood cultures remain negative. Blood pressure was noted to be elevated and he was started on amlodipine with fair response. Start amlodipine 5 mg daily. To follow-up with PCP. Continue prednisone and Augmentin for 5 more days. To use albuterol inhaler as needed. Time Spent with Patient Time attestation: Total time spent providing and/or coordinating discharge services: Discharge coordination time: Greater than 30 minutes Quality: Stroke Does the patient have a stroke diagnosis?: No Physical Exam Vital Signs: Vital Signs: Last Vital Signs Temp 98 F 01/17/21 06:58 Pulse 76 01/17/21 09:11 Resp 18 01/17/21 06:58 BP 124/83 01/17/21 09:11 Pulse Ox 96 01/17/21 06:58 BMI result Body Mass Index 32.6 Const: Other: Constitutional : Alert, oriented, not in distress Neck : Normal inspection, Supple Cardiovascular : RRR, S1 S2, no lower extremity edema Respiratory : Fair bilateral air entry, no crackles, scattered bilateral expiratory wheezes Gastrointestinal: soft, lax, Normal bowel sounds, Non tender Skin : Warm, Dry Neurological : Alert & oriented x3, No focal deficit DS: Data Data Completed and Pending Completed studies during hospitalization [Text1]: Procedures Repair Scalp Skin, External Approach (01/11/21) Labs on day of discharge: Laboratory Results - last 24 hr 01/17/21 06:23 WBC 12.5 H RBC 4.43 L Hgb 13.3 L Hct 41.1 L MCV 92.8 MCH 30.0 MCHC 32.4 RDW 13.9 Plt Count 391 MPV 10.2 Absolute Nucleated RBC 0.000 Nucleated RBC % (auto) 0.0 Preliminary micro results at discharge 01/13/21 23:44 Blood Culture - Preliminary Blood - Venous No growth after 48 hours. Discharge Plan Discharge Patient Disposition: Home, Self-Care Discharge Diagnosis: Aspiration pneumonia Uncontrolled hypertension Referrals: Esther Greer MD [Primary Care Provider] - 1 Week Discharge Medications: New albuterol sulfate 90 mcg/actuation HFA aerosol inhaler 2 puff inhalation Q4-6H PRN (Reason: shortness of breath or wheezing) Qty: 8.5 RF: 1 prednisone 20 mg tablet 40 mg PO DAILY Qty: 10 RF: 0 amoxicillin-pot clavulanate 875-125 mg tablet 1 tab PO BID Qty: 10 RF: 0 amlodipine 5 mg Tablet 5 mg PO DAILY 30 Days Qty: 30 RF: 0 Continued prednisone 20 mg tablet 2 tab PO DAILY RF: 0 lidocaine 5 % adhesive patch,medicated 1 patch topical DAILY PRN (Reason: Pain) RF: 0 pramipexole 0.25 mg tablet 1 tab PO BEDTIME RF: 0 gabapentin 100 mg capsule 1 cap PO BID RF: 0 Discharge Orders: Discharge Order (Routine); Ordered 01/17/21 Ordered By: Rani Valle Diet: advance to usual diet Activity on Discharge: As tolerated Stand Alone Forms: Patient Portal Discharge page Care Plan Goals: Read below Health Concerns: Read below Plan of Treatment: Read below Assessment: You were admitted to the hospital for evaluation of difficulty breathing. Images were concerning for possible aspiration pneumonia and reactive airway disease. You were treated with IV antibiotics, steroids and bronchodilator nebulizers with good response. Your blood pressure was noted to be elevated and you were started on blood pressure medication. Monitor your blood pressure at home and take amlodipine as prescribed. To follow-up with PCP for further adjustments. Continue Augmentin, prednisone for the next 5 days To use albuterol inhaler as needed
--- NOTE | 2021-01-17 09:54 | MHC.CM.PN ---
Patient has been medically cleared for dc to home today, no services.
== END 2021-01-17 10:24 | disposition home or self-care (01) | DRG 137 ==
LOC: HO.ED 01-14 00:20 → HO.EDOVER 01-14 00:57 → HO.IMC 01-14 23:23
PROVIDERS: Admitting Provider Internal Medicine; Emergency Provider Emergency Medicine; PCP Internal Medicine; Visit Provider Student in an Organized Health Care Education/Training Program
DX: J69.0 Pneumonitis due to inhalation of food and vomit (principal); J96.01 Acute respiratory failure with hypoxia; I10 Essential (primary) hypertension; Z20.822 Contact with and (suspected) exposure to COVID-19; Z79.899 Other long term (current) drug therapy
CPT/HCPCS: 36415; 71046; 80048; 80076; 81003; 83605; 83690; 83735; 83880; 84484; 85025; 85027; 87040; 87147; 87205; 87635; 93005; 94640; 96365; 99285; J0295; J1650; J2543; J3370

== ENCOUNTER 2021-01-17 12:25 | Emergency (ER) | payer MEDICAID, SELFPAY ==
[2021-01-17 12:37] VITALS: BP 134/87; PULSE 75; RESP 18; TEMP 36.9; O2SAT 98; BMI 30.4
--- NOTE | 2021-01-17 13:07 | ED.RECABL ---
HPI - Recheck/Abnormal Lab/Rx General Chief Complaint: General Medical Stated Complaint: staple removal Time Seen by Provider: 01/17/21 13:04 Source: patient Mode of arrival: ambulatory Limitations: no limitations History of Present Illness complaint: suture/staple removal Initial visit (ago): day(s) (6) Initial visit for: laceration Returns today for: staple/stitch removal Symptoms since prior visit: no new symptoms Context: planned re-check Associated symptoms: none Related Data Home Medications Medication Instructions Recorded Confirmed gabapentin 100 mg capsule 1 cap PO BID 01/14/21 01/14/21 lidocaine 5 % topical patch 1 patch TOPICAL DAILY PRN 01/14/21 01/14/21 pramipexole 0.25 mg tablet 1 tab PO BEDTIME 01/14/21 01/14/21 prednisone 20 mg tablet 2 tab PO DAILY 01/14/21 01/14/21 Previous Rx's Medication Instructions Recorded albuterol sulfate 90 mcg/actuation 2 puff INHALATION Q4-6H PRN #8.5 g 01/17/21 aerosol inhaler amlodipine 5 mg tablet 5 mg PO DAILY 30 Days #30 tab 01/17/21 amoxicillin 875 mg-potassium 1 tab PO BID #10 tab 01/17/21 clavulanate 125 mg tablet prednisone 20 mg tablet 40 mg PO DAILY #10 tab 01/17/21 Allergies Allergy/AdvReac Type Severity Reaction Status Date / Time kiwi [KIWI] Allergy Unknown SWOLLEN Verified 01/13/21 21:13 LIPS Review of Systems Review of Systems: Constitutional : No Fever, No Chills, Cardiovascular : No Chest Pain, No SOB Respiratory : No Dyspnea Gastrointestinal : No abdominal pain Musculoskeletal : No Joint Swelling Skin : positive healing skin laceration, No Foreign bodies, No rash, No surrounding erythema Neuro : No Weakness, No Numbness/tingling Psych : No SI/HI/thoughts of self injury Yes all other systems are reviewed and are negative [facility] Past Medical History Attestation statement: The following information was validated with the patient. Medical History COVID-19 Depression Heroin abuse High cholesterol HTN (hypertension) HTN (hypertension) Intentional weight loss Sudden hearing loss Surgical History No history of previous surgery Family History Family History Father Pancreatic cancer Mother Diabetes Social History Social History Household Members: Significant Other Housing: Apartment Do you presently have visiting nurse or other home services: No Alcohol intake: never Patient Tobacco Use Status: Never used Tobacco Substance Use Type: Heroin Advance Directives: No Advance Directives Information Provided: No service: No Current occupational status: unemployed Physical Exam Vital Signs: Vital Signs: Last Vital Signs Temp 98.4 F 01/17/21 12:37 Pulse 75 01/17/21 12:37 Resp 18 01/17/21 12:37 BP 134/87 01/17/21 12:37 Pulse Ox 98 01/17/21 12:37 BMI result Body Mass Index 30.4 vital signs have been reviewed as normal and appeared to be correct. Blood pressure normal Heart rate normal. Respiration rate normal. Temperature normal. Oxygen saturation normal. Appearance: Alert. Oriented X3. No acute distress. Head: Normal external exam. Normocephalic. Atraumatic. To the scalp patient has 11th that was in place. No signs of infection. Well-healing wounds. No surrounding erythema /purulent drainage noted. Eyes: PERRLA. EOMI. Conjunctiva and sclera normal. Eyelids normal. ENT: Pharynx normal. Uvula midline. Moist mucous membranes. Neck: Normal inspection. Neck supple. FROM. CVS: Normal heart rate and rhythm. Respiratory: No respiratory distress. Painless inspiration. Skin: Skin warm and dry. Normal skin color. Normal skin turgor. No rashes/lesions/lacerations noted. Extremities: Extremities exhibit normal range of motion. Extremities nontender. Neuro: Oriented X 3. No motor deficit. No sensory deficit. Reflexes normal. Normal steady gait. No focal neuro deficits noted. Course Course Course Narrative: Patient now status post staple removal. Eleven faisal were removed. Patient tolerated procedure well. No complications. Will DC home with instructions to return if any new or worsening and to follow up with primary care provider. Patient understands agrees with this plan. MDM - Recheck/Abnormal Lab/Rx Medical Records Attestation: I reviewed the patient's medical records. Discharge Plan Discharge Clinical Impression: Encounter for removal of faisal Patient Disposition: Home, Self-Care Instructions: Stitches Removal (ED) Prescriptions: No Action prednisone 20 mg tablet 2 tab PO DAILY RF: 0 lidocaine 5 % adhesive patch,medicated 1 patch topical DAILY PRN (Reason: Pain) RF: 0 pramipexole 0.25 mg tablet 1 tab PO BEDTIME RF: 0 gabapentin 100 mg capsule 1 cap PO BID RF: 0 albuterol sulfate 90 mcg/actuation HFA aerosol inhaler 2 puff inhalation Q4-6H PRN (Reason: shortness of breath or wheezing) Qty: 8.5 RF: 1 prednisone 20 mg tablet 40 mg PO DAILY Qty: 10 RF: 0 amoxicillin-pot clavulanate 875-125 mg tablet 1 tab PO BID Qty: 10 RF: 0 amlodipine 5 mg Tablet 5 mg PO DAILY 30 Days Qty: 30 RF: 0 Referrals: Esther Greer MD [Primary Care Provider] - 2 days Interventions: ED Discharge Assessment Last Done: 01/17/21 13:12 Discharge Date/Time: 01/17/21 13:13 Print Language: Estonian
== END 2021-01-17 13:13 | disposition home or self-care (01) ==
PROVIDERS: Emergency Provider Emergency Medicine; PCP Internal Medicine
DX: Z48.02 Encounter for removal of sutures (principal)
CPT/HCPCS: 99283

== ENCOUNTER 2021-01-25 21:58 | Emergency (ER) | payer MEDICAID, SELFPAY ==
[2021-01-25 22:14] VITALS: BP 142/86; PULSE 112; RESP 18; TEMP 36.6; O2SAT 96; BMI 31.9
[2021-01-26 02:00] VITALS: BP 123/73; PULSE 87; RESP 20; O2SAT 94
== END 2021-01-26 02:44 | disposition left against medical advice (07) ==
PROVIDERS: Emergency Provider Emergency Medicine; PCP Internal Medicine
DX: F41.9 Anxiety disorder, unspecified (principal)
CPT/HCPCS: 99283

== ENCOUNTER 2021-02-08 09:01 | Outpatient (REF) | payer MEDICAID, SELFPAY ==
--- NOTE | 2021-02-08 09:07 | EMG_ITS ---
This is a 50-year-old man with a 1-month history of left upper extremity pain and numbness. He has a history of hypertension. PHYSICAL EXAMINATION: He has weakness of the left triceps graded at 4/5 and decreased sensation in the left index finger. IMPRESSION: Left C6 radiculopathy. Nerve conduction EMG study: Normal nerve conduction study of the left upper extremity with no evidence of carpal tunnel syndrome or nerve entrapment. EMG of the left C5-T1 innervated muscles is consistent with an acute left C6 radiculopathy. MRI of the cervical spine is recommended. MD PARIS Leonard/FEMI / [id number]
== END 2021-02-08 09:02 | disposition home or self-care (01) ==
LOC: HO.NEURO 09:01
PROVIDERS: Visit Provider Internal Medicine
DX: M54.12 Radiculopathy, cervical region (principal)
CPT/HCPCS: 95885; 95910

== ENCOUNTER 2021-03-28 23:01 | Inpatient (IN) | payer MEDICAID, SELFPAY ==
--- NOTE | ~2021-03-28 | XR_ITS ---
EXAMINATION: XR CHEST CLINICAL INFORMATION: Hypoxemia COMPARISON: Chest x-ray March 29, 2021 TECHNIQUE: 2 views of the chest were obtained. FINDINGS: Cardiac silhouette is normal in size. The lungs are well aerated. There is no lobar consolidation. No pleural effusion or pneumothorax. No acute osseous abnormality. XR/XR chest 2V IMPRESSION: No acute pulmonary pathology.
--- NOTE | ~2021-03-28 | XR_ITS ---
EXAMINATION: XR CHEST CLINICAL INFORMATION: Post overdose COMPARISON: March 28, 2021 and January 13, 2021 TECHNIQUE: AP portable view of the chest was obtained. FINDINGS: No significant abnormality is noted involving the heart, lungs, mediastinum, bony thorax or soft tissues. XR/XR chest 1V IMPRESSION: No acute disease.
--- NOTE | ~2021-03-28 | XR_ITS ---
EXAMINATION: XR CHEST CLINICAL INFORMATION: Status post CPR. To evaluate for fractures. COMPARISON: Chest radiograph dated from 01/13/2021. TECHNIQUE: AP view of the chest was obtained. FINDINGS: Normal appearance of the cardiomediastinal silhouette. No focal airspace opacities, pleural effusions or pneumothorax. No evidence of acutely displaced rib fractures. XR/XR chest 1V IMPRESSION: No acute cardiopulmonary findings. No acutely displaced rib fractures.
--- NOTE | ~2021-03-28 | US_ITS ---
EXAMINATION: US VENOUS ULTRASOUND WITH DOPPLER LOWER EXTREMITY, BILATERAL CLINICAL INFORMATION: Hypoxia. COMPARISON: None TECHNIQUE: Ultrasound of the deep veins is performed from the hip to the calf with compression sonography and color and pulse Doppler assessment. Spectral analysis with color-flow imaging is performed. FINDINGS: RIGHT: There is normal venous compression and respiratory variation and augmented flow. The visualized common femoral vein, superficial femoral vein, profunda femoral vein, popliteal vein, and the trifurcation region shows no evidence of deep venous thrombosis. There is no significant popliteal fossa cyst. LEFT: There is normal venous compression and respiratory variation and augmented flow. The visualized common femoral vein, superficial femoral vein, profunda femoral vein, popliteal vein, and the trifurcation region shows no evidence of deep venous thrombosis. There is no significant popliteal fossa cyst. Morphologically normal-appearing lymph node with fatty joaquín and a short axis diameter 1 cm in the left groin. If the patient's symptoms persist, followup ultrasound in 5 days 7 days might be of value to exclude proximal propagation from a non-visualized calf vein. US/US venous duplex LE IMPRESSION: No DVT demonstrated in the bilateral lower extremity.
[2021-03-28 23:20] VITALS: BP 167/98; PULSE 112; RESP 18; TEMP 36.4; O2SAT 96; BMI 33.4
--- NOTE | 2021-03-28 23:29 | ECG_ITS ---
Test Reason : OVERDOSE Blood Pressure : / mmHG Vent. Rate : 091 BPM Atrial Rate : 091 BPM P-R Int : 158 ms QRS Dur : 088 ms QT Int : 392 ms P-R-T Axes : 039 008 023 degrees QTc Int : 482 ms Normal sinus rhythm Prolonged QT Abnormal ECG When compared with ECG of 13-JAN-2021 23:20, QT has lengthened Referred By: Karla Mccormack Electronically Signed By:VANCE OLIVEIRA MD
[2021-03-28] MEDS: Naloxone HCl Nasal 4 MG SPRAY NOSTRILALT (23:30)
--- NOTE | 2021-03-28 23:33 | ED_ITS ---
HPI - Overdose General Chief Complaint: ETOH/Substance Use Stated Complaint: OD Time Seen by Provider: 03/28/21 23:28 Source: patient Mode of arrival: ambulatory Limitations: no limitations History of Present Illness HPI Narrative: Patient is brought to the emergency room by family. Patient states that earlier today he was using heroin and fentanyl. Patient states that he does not remember much. Complaining of feeling sleepy. The girlfriend reports that the patient was unconscious, she started doing CPR on him and also given 1 dose of intranasal Narcan. Related Data Home Medications Medication Instructions Recorded Confirmed gabapentin 100 mg capsule 1 cap PO BID 01/14/21 01/14/21 lidocaine 5 % topical patch 1 patch TOPICAL DAILY PRN 01/14/21 01/14/21 pramipexole 0.25 mg tablet 1 tab PO BEDTIME 01/14/21 01/14/21 prednisone 20 mg tablet 2 tab PO DAILY 01/14/21 01/14/21 Previous Rx's Medication Instructions Recorded albuterol sulfate 90 mcg/actuation 2 puff INHALATION Q4-6H PRN #8.5 g 01/17/21 aerosol inhaler amlodipine 5 mg tablet 5 mg PO DAILY 30 Days #30 tab 01/17/21 amoxicillin 875 mg-potassium 1 tab PO BID #10 tab 01/17/21 clavulanate 125 mg tablet prednisone 20 mg tablet 40 mg PO DAILY #10 tab 01/17/21 Allergies Allergy/AdvReac Type Severity Reaction Status Date / Time kiwi [KIWI] Allergy Unknown SWOLLEN Verified 03/28/21 23:20 LIPS Review of Systems Review of Systems: Constitutional : No Weight loss, No Fever, No Chills, No Night Sweats, No Fatigue, No Malaise complaining of feeling very sleepy ENT/Mouth : No Hearing loss, No Ear Pain, No Nasal Congestion, No Sinus Pain, No Hoarseness, No sore throat, No Rhinorrhea, No Swallowing Difficulty Eyes: No Eye Pain, No Swelling, No Redness, No Foreign Body, No Discharge, No Vision Changes Cardiovascular : No Chest Pain, No SOB, No Dyspnea on Exertion, No Orthopnea, No Edema, No Palpitations Respiratory : No Cough, No Sputum, No Wheezing, No Smoke Exposure, No Dyspnea Gastrointestinal : No Nausea, No Vomiting, No Diarrhea, No Constipation, No abdominal Pain, No Hematochezia, No Melena Genitourinary : no irregular bleeding, No Dysuria, No Urinary Frequency, No Hematuria, No Urinary Incontinence, No Urgency, No Flank Pain, No Urinary Flow Changes, No Hesitancy Musculoskeletal : No joint pain, No Myalgias, No Joint Swelling Skin : No Skin Lesions, No rash Neuro : No Weakness, No Numbness, No Paresthesias, No Loss of Consciousness, No Dizziness, No Headache Psych : No Anxiety/Panic, No Depression, No SI/HI/AH/VH, No Social Issues, Heme/Lymph: No Bruising, No Bleeding,No Lymphadenopathy Endocrine : No Polyuria, No Polydipsia, No Temperature Intolerance [facility] Past Medical History Medical History COVID-19 Depression Heroin abuse High cholesterol HTN (hypertension) HTN (hypertension) Intentional weight loss Sudden hearing loss Surgical History No history of previous surgery Family History Family History Father Pancreatic cancer Mother Diabetes Social History Social History Household Members: Significant Other Housing: Apartment Do you presently have visiting nurse or other home services: No Alcohol intake: never Patient Tobacco Use Status: Never used Tobacco Substance Use Type: Heroin Advance Directives: No service: No Current occupational status: unemployed Physical Exam Vital Signs: Vital Signs: Last Vital Signs Temp 97.5 F 03/28/21 23:20 Pulse 84 03/29/21 06:18 Resp 10 L 03/29/21 06:18 BP 147/85 H 03/29/21 06:18 Pulse Ox 97 03/29/21 06:18 BMI result Body Mass Index 33.4 Const: Other: Appearance: Alert. Oriented X3. Very somnolent but easily arousable Eyes: Pupils equal, round and reactive to light. ENT: Pharynx normal. Neck: Normal inspection. Neck supple. No lymph nodes noted. No crepitus CVS: Normal heart rate and rhythm. Pulses normal. Normal S1 and S2 Respiratory: No respiratory distress. Breath sounds normal. No Wheezing. No rales , oxygen saturation drops to 86% on room air when patient falls asleep Abdomen: Soft and nontender. No rigidity. No distention. good BS x4 Skin: Skin warm and dry. Normal skin color. Normal skin turgor. Extremities: No lower extremity edema. No Lacerations. No Rash Neuro: Oriented X 3. No motor deficit. No sensory deficit. Moving all extermities. No slurred speech. Course Course Course Narrative: Patient's oxygen saturation drops to 86%. Patient was given dose of Narcan here in the emergency room, so far patient has received 2 total doses of 4 mg intranasal Narcan 00:21 patient's oxygen saturation dropped to 84%, patient received 1 additional dose of Narcan, now at 12 mg total. Patient is now on 2 L nasal Patient remains awake and alert, occasionally the oxygen saturation drops below 90. Patient's labs are at baseline. Creatinine is slightly bumped at 1.41, patient received IV fluids. Troponin negative, EKG within normal limits. Overall patient feeling better. Physician observation started at 01:10 Patient needed a 3rd dose of Narcan here in the emergency room. As of now, 06:08, patient is somnolent but he is on room air, saturating 95 and above on room air. Patient is still very somnolent. Metabolize to freedom. Sign-out given to Dr. Harrington. Patient was provided with a dose of home Narcan MDM - Overdose Lab Data Result diagrams: 03/28/21 23:40 03/28/21 23:40 Labs: Lab Results 03/28/21 03/28/21 03/28/21 Range/Units 23:40 23:40 23:40 WBC 9.9 (4.8-10.8) X10*3/uL RBC 4.71 (4.60-5.80) X10*6/uL Hgb 13.9 L (14.0-18.0) g/dl Hct 41.5 L (42.0-52.0) % MCV 88.1 (80.0-98.0) fL MCH 29.5 (27.0-33.0) pg MCHC 33.5 (31.0-36.0) g/dl RDW 12.9 (11.0-16.0) % Plt Count 341 (160-400) X10*3/uL MPV 9.7 (9.4-12.4) fL Immature Gran % (Auto) 0.3 (0.0-0.4) % Neut % (Auto) 80.0 H (45-73) % Lymph % (Auto) 13.1 L (20-40) % [place] % (Auto) 5.8 (2-11) % Eos % (Auto) 0.5 (0-4) % Baso % (Auto) 0.3 (0-2) % Lymph # (Auto) 1.3 (1.2-4.9) X10*3/uL [place] # (Auto) 0.6 (0.1-1.2) X10*3/uL Eos # (Auto) 0.1 (0.0-0.4) X10*3/uL Baso # (Auto) 0.0 (0.0-0.2) X10*3/uL Abs Immat Gran (auto) 0.03 (0.00-0.03) X10*3/uL Absolute Neuts (auto) 7.9 (2.0-8.3) x10*3/uL Absolute Nucleated RBC 0.000 (0.0-0.012) X10*3/uL Nucleated RBC % (auto) 0.0 (0.0-0.2) /100WBC Sodium 141 (135-145) mmol/L Potassium 3.8 (3.3-5.1) mmol/L Chloride 102 (96-108) mmol/L Carbon Dioxide 25 (22-29) mmol/L Anion Gap 18 (12-20) BUN 15 (9-16) mg/dL Creatinine 1.41 H (0.5-1.4) mg/dL Estim Creat Clear Calc 73.3 Estimated GFR 54 Random Glucose 242 H D (60-115) mg/dL Calcium 10.2 D (8.4-10.2) mg/dL Total Bilirubin 0.7 (0.0-1.0) mg/dL Direct Bilirubin 0.3 (0.0-0.5) mg/dL AST 32 (5-37) U/L ALT 58 H (0-40) U/L Alkaline Phosphatase 63 (39-117) U/L Troponin I High Sens (<3.5-35.0) ng/L Total Protein 8.1 H D (6.5-8.0) g/dL Albumin 4.8 D (3.5-5.0) g/dL Urine Color Urine Appearance Urine pH (5.0-8.0) Ur Specific [place] (1.005-1.025) Urine Protein (NEG-TRACE) MG/DL Urine Glucose (UA) (NEG) MG/DL Urine Ketones (NEG) MG/DL Urine Blood (NEG) Urine Nitrite (NEG) Ur Leukocyte Esterase (NEG) Urine RBC (0) /HPF Urine WBC (0-4) /HPF Ur Squamous Epith Cells /LPF Urine Bacteria /LPF Urine Mucus /LPF Urine Opiates Screen (Not Detect) Urine Fentanyl Screen (Not Detect) Ur Barbiturates Screen (Not Detect) Ur Phencyclidine Scrn (Not Detect) Ur Amphetamines Screen (Not Detect) U Benzodiazepines Scrn (Not Detect) Urine Cocaine Screen (Not Detect) U Marijuana (THC) Screen (Not Detect) Ethyl Alcohol < 10 mg/dL 03/28/21 03/29/21 03/29/21 Range/Units 23:40 00:44 00:44 WBC (4.8-10.8) X10*3/uL RBC (4.60-5.80) X10*6/uL Hgb (14.0-18.0) g/dl Hct (42.0-52.0) % MCV (80.0-98.0) fL MCH (27.0-33.0) pg MCHC (31.0-36.0) g/dl RDW (11.0-16.0) % Plt Count (160-400) X10*3/uL MPV (9.4-12.4) fL Immature Gran % (Auto) (0.0-0.4) % Neut % (Auto) (45-73) % Lymph % (Auto) (20-40) % [place] % (Auto) (2-11) % Eos % (Auto) (0-4) % Baso % (Auto) (0-2) % Lymph # (Auto) (1.2-4.9) X10*3/uL [place] # (Auto) (0.1-1.2) X10*3/uL Eos # (Auto) (0.0-0.4) X10*3/uL Baso # (Auto) (0.0-0.2) X10*3/uL Abs Immat Gran (auto) (0.00-0.03) X10*3/uL Absolute Neuts (auto) (2.0-8.3) x10*3/uL Absolute Nucleated RBC (0.0-0.012) X10*3/uL Nucleated RBC % (auto) (0.0-0.2) /100WBC Sodium (135-145) mmol/L Potassium (3.3-5.1) mmol/L Chloride (96-108) mmol/L Carbon Dioxide (22-29) mmol/L Anion Gap (12-20) BUN (9-16) mg/dL Creatinine (0.5-1.4) mg/dL Estim Creat Clear Calc Estimated GFR Random Glucose (60-115) mg/dL Calcium (8.4-10.2) mg/dL Total Bilirubin (0.0-1.0) mg/dL Direct Bilirubin (0.0-0.5) mg/dL AST (5-37) U/L ALT (0-40) U/L Alkaline Phosphatase (39-117) U/L Troponin I High Sens < 3.5 D (<3.5-35.0) ng/L Total Protein (6.5-8.0) g/dL Albumin (3.5-5.0) g/dL Urine Color YELLOW Urine Appearance CLEAR Urine pH 5.5 (5.0-8.0) Ur Specific [place] >= 1.030 H (1.005-1.025) Urine Protein TRACE (NEG-TRACE) MG/DL Urine Glucose (UA) 250 H (NEG) MG/DL Urine Ketones 15 (NEG) MG/DL Urine Blood TRACE (NEG) Urine Nitrite NEG (NEG) Ur Leukocyte Esterase NEG (NEG) Urine RBC 0-2 (0) /HPF Urine WBC 0 (0-4) /HPF Ur Squamous Epith Cells TRACE /LPF Urine Bacteria NONE /LPF Urine Mucus TRACE /LPF Urine Opiates Screen POSITIVE H (Not Detect) Urine Fentanyl Screen POSITIVE H (Not Detect) Ur Barbiturates Screen Not Detected (Not Detect) Ur Phencyclidine Scrn Not Detected (Not Detect) Ur Amphetamines Screen Not Detected (Not Detect) U Benzodiazepines Scrn Not Detected (Not Detect) Urine Cocaine Screen Not Detected (Not Detect) U Marijuana (THC) Screen Not Detected (Not Detect) Ethyl Alcohol mg/dL Imaging Data Chest x-ray: Radiologist's impression: FINDINGS: Normal appearance of the cardiomediastinal silhouette. No focal airspace opacities, pleural effusions or pneumothorax. No evidence of acutely displaced rib fractures. XR/XR chest 1V IMPRESSION: No acute cardiopulmonary findings. No acutely displaced rib fractures. ? Discharge Plan Discharge Clinical Impression: Overdose Patient Disposition: Home, Self-Care Instructions: Adult Overdose (ED) Additional Instructions: Please follow-up with your primary care physician tomorrow. If you have any worsening or new symptoms, please return to the emergency room or call 911 Prescriptions: No Action prednisone 20 mg tablet 2 tab PO DAILY 0RF lidocaine 5 % adhesive patch,medicated 1 patch topical DAILY PRN (Reason: Pain) 0RF pramipexole 0.25 mg tablet 1 tab PO BEDTIME 0RF gabapentin 100 mg capsule 1 cap PO BID 0RF albuterol sulfate 90 mcg/actuation HFA aerosol inhaler 2 puff inhalation Q4-6H PRN (Reason: shortness of breath or wheezing) Qty: 8.5 1RF prednisone 20 mg tablet 40 mg PO DAILY Qty: 10 0RF amoxicillin-pot clavulanate 875-125 mg tablet 1 tab PO BID Qty: 10 0RF amlodipine 5 mg Tablet 5 mg PO DAILY 30 Days Qty: 30 0RF Protocol: Hold for SBP< HOLD for SBP < : 90
[2021-03-28 23:34] VITALS: O2SAT 86
[2021-03-28] MEDS: 0.9 % Sodium Chloride 1,000 ML 999 ML IVCONT (23:41)
[2021-03-28 23:45] LABS: MANUAL DIFF FLAG NO
[2021-03-28 23:46] LABS: Basophils Percent Auto 0.3 % (0-2); Eosinophils Absolute Auto 0.1 X10*3/uL (0.0-0.4); Eosinophils Percent Auto 0.5 % (0-4); Hematocrit 41.5 % (42.0-52.0); Hemoglobin 13.9 g/dl (14.0-18.0); Imm Gran Abs Auto 0.03 X10*3/uL (0.00-0.03); Imm Gran Pct Auto 0.3 % (0.0-0.4); Lymphocytes Absolute Auto 1.3 X10*3/uL (1.2-4.9); Lymphocytes Percent Auto 13.1 % (20-40); Mean Corpuscular HGB Conc 33.5 g/dl (31.0-36.0); Mean Corpuscular Hemoglobin 29.5 pg (27.0-33.0); Mean Corpuscular Volume 88.1 fL (80.0-98.0); Mean Platelet Volume 9.7 fL (9.4-12.4); Monocytes Absolute Auto 0.6 X10*3/uL (0.1-1.2); Monocytes Percent Auto 5.8 % (2-11); Neutrophils Absolute Auto 7.9 x10*3/uL (2.0-8.3); Platelet Count 341 X10*3/uL (160-400); Red Blood Count 4.71 X10*6/uL (4.60-5.80); Red Cell Distribution Width 12.9 % (11.0-16.0); White Blood Count 9.9 X10*3/uL (4.8-10.8)
[2021-03-28 23:58] LABS: Ethanol < 10 mg/dL
[2021-03-29] VITALS (20 sets, daily range): BP systolic 122–165; BP diastolic 67–91; PULSE 75–107; RESP 6–23; TEMP 36.9–37.3; O2SAT 82–100
[2021-03-29 00:02] LABS: Alanine Aminotransferase 58 U/L (0-40); Albumin Level 4.8 g/dL (3.5-5.0); Alkaline Phosphatase 63 U/L (39-117); Anion Gap 18 (12-20); Aspartate Amino Transferase 32 U/L (5-37); Bilirubin Direct 0.3 mg/dL (0.0-0.5); Bilirubin Total 0.7 mg/dL (0.0-1.0); Blood Urea Nitrogen 15 mg/dL (9-16); Calcium 10.2 mg/dL (8.4-10.2); Carbon Dioxide 25 mmol/L (22-29); Chloride 102 mmol/L (96-108); Creatinine Clr Calc Pharmacy 73.3; Estimated Glomerular Filt Rate 54; Glucose Random 242 mg/dL (60-115); Potassium 3.8 mmol/L (3.3-5.1); Sodium 141 mmol/L (135-145); Total Protein 8.1 g/dL (6.5-8.0)
[2021-03-29] MEDS: Naloxone HCl Nasal 4 MG SPRAY NOSTRILALT ×3 (00:21→06:23)
--- NOTE | 2021-03-29 00:22 | PC.NURSE ---
Assumed care of patient. Patient here for OD, noticed to be diaphoretic. Patient de-satted down to 83% on room air, Dr. Mccormack aware, 4mg intranasal Narcan ordered and given, patient placed on O2 at 2L, now satting 99% and arouseable. Patient changed into [facility] and put on cardiac monitoring. Will continue to monitor per orders
--- NOTE | 2021-03-29 00:43 | HO.SUDE ---
CARE team met with pt to offer SUDE. He reported that he uses heroin occasionally and denied feeling the need to stop using due to it being infrequent. He stated that he used 5 bags of heroin, his usual amount, and that he didn't realize that there was fentanyl as well (Per ED physician- pt had reported to her that it was heroin mixed with fentanyl). Pt was alert and oriented, provided brief responses to questions asked, and did not make eye contact with this blog writer. This blog writer confirmed with pt that he has narcan at home and recommended that he not use any remaining heroin from what he had purchased earlier to avoid an additional accidental overdose. Information for [facility] peer recovery center was given to pt and he was encouraged to reach out for support or if he has any questions.
[2021-03-29 00:44] LABS: Troponin-I High Sensitivity < 3.5 ng/L (<3.5-35.0)
[2021-03-29 00:49] LABS: Appearance Urine CLEAR; Color Urine YELLOW; Glucose Urine UA 250 MG/DL (NEG); Leukocyte Esterase Urine NEG (NEG); Nitrite Urine NEG (NEG); PH 5.5 (5.0-8.0); Specific Gravity - Urine >= 1.030 (1.005-1.025); UACC Culture Trigger NO; Urine Blood TRACE (NEG); Urine Ketones 15 MG/DL (NEG); Urine Protein TRACE MG/DL (NEG-TRACE)
[2021-03-29 00:58] LABS: Mucus Urine TRACE /LPF; RBC Urine 0-2 /HPF (0); Squamous Epithelial Cell Urine TRACE /LPF; WBC Urine 0 /HPF (0-4)
[2021-03-29 01:08] LABS: Amphetamine Screen Urine Not Detected (Not Detect); Barbiturates, Urine Not Detected (Not Detect); Benzodiazepines Screen Urine Not Detected (Not Detect); Cannabinoid Screen Urine Not Detected (Not Detect); Cocaine Screen Urine Not Detected (Not Detect); Fentanyl, urine POSITIVE (Not Detect); Opiate Screen Urine POSITIVE (Not Detect); Phencyclidine Screen Urine Not Detected (Not Detect)
[2021-03-29] MEDS: Naloxone HCl Nasal TAKE HOME 4 MG SPRAY NOSTRILALT (06:11)
--- NOTE | 2021-03-29 06:19 | PC.NURSE ---
This RN at bedside for discharge. Pt found in bed with eyes closed, snoring respirations. This RN unable to wake pt with painful stimuli. Pt medicated again with nasal Narcan. MD aware. Pt coming to shortly after, initially confused, easily redirected. Plan for DC on hold. VSS.
--- NOTE | 2021-03-29 07:04 | PC.NURSE ---
pt alert and oriented, skin appropriate for ethnicity, respirations even and unlabored, pt denies pain, pt admits to using a lot of heroin today but does not use daily, once in a while, pt also denies si, just wanted to get high. pt oxygen decreased from 6l via nasal cannula down to 2l, sating at 100%. pt is asking when can he go home. normal sinus on the monitor and vs stable
--- NOTE | 2021-03-29 08:52 | PC.NURSE ---
pt continuous on falling asleep, and getting harder to wake up, need to sternal rub for a few seconds, pinpoint, and snorting respirations
[2021-03-29] MEDS: Naloxone HCl 2 MG/2 ML SYRINGE IVPUSH (09:09)
[2021-03-29] MEDS: ondansetron HCL 4 MG/2 ML VIAL IVPUSH (09:09)
--- NOTE | 2021-03-29 09:46 | PC.NURSE ---
good reaction to the narcan iv, pt fully awake, shakes finally ended, pt taken of the oxygen,
--- NOTE | 2021-03-29 09:55 | PC.NURSE ---
pt started to drop his oxygen levels, pt is talking in full sentences wide awake, nut sats dropped as low as 82% on room air, skyler edmonds md aware
[2021-03-29] MEDS: Albuterol Sulfate (0.083%) 2.5 MG/3 ML VIAL.NEB 5 MG INHALE (10:06)
[2021-03-29 10:24] LABS: Venous Blood Gas Refer to POC result
[2021-03-29 10:25] LABS: VBG Base Excess 4.3 mmol/L; VBG HCO3 31 mmol/L (22-26); VBG pCO2 59 mmHg; VBG pH 7.33 (7.32-7.43); VBG pO2 51 mmHg
--- NOTE | 2021-03-29 10:30 | MHC.RECOVSUP ---
? Reason for consult:Recovery Support+ o Current location:ED8 o Identified substance use concern: Heroin - Overdose - Withdrawal - Support ? Intervention: o Community resources provided o Harm reduction discussion ? Plan: o Referral to CCC o Patient to follow up with [facility] after discharge ? Additional information:Patient refuses detox, Patient given community resources.
--- NOTE | 2021-03-29 10:54 | PC.NURSE ---
pt put on capnography co2 reading 53-54, respirations ranges from 10-8, pt sleepy again hr increased to 105 sating at 96 on 2l
[2021-03-29] MEDS: Naloxone HCl 5 MG in Dextrose 5 % 95 ML 20 MG IV ×2 (10:55→15:16)
[2021-03-29 11:35] LABS: COVID-19 Test Negative (Negative); IDNOW Serial# 55D5AD1C
--- NOTE | 2021-03-29 12:01 | PHA.MEDREC ---
Pharmacy Consult ? Medication Reconciliation Pharmacy has completed the medication reconciliation. Spoke with patient in the ED. Patient last took medications yesterday.
--- NOTE | 2021-03-29 13:42 | PC.NURSE ---
pt still drowsy but arousable to voice command, sating well 100 on 2l nasal cannual, hr 76, bp 122/79. narcan drip running
--- NOTE | 2021-03-29 13:52 | PC.NURSE ---
report given to curriculum director
--- NOTE | 2021-03-29 14:15 | PM.CCHP ---
History of Present Illness Date of Service: 03/29/21 Attending physician on admission: Rojelio Melton Chief Complaint: Heroin/Fentanyl OD Mr. Bartolome Tamayo is admitted to the ICU this afternoon with resp depression after a heroin/fentanyl OD. The patient is a 50 yo M with PMHx of depression, heroin abuse, and HTN.? He?s had COVID-19.? He had a previous OD this past January, and three ODs prior to that.? Was seen by Amanda Alvarez at the January OD. The patient was brought to the emergency room by family late last night. ?The patient was ambulatory.? He was somnolent but easily arousable, and alert enough to report that he used heroin and fentanyl earlier that day. ?The girlfriend reported that she found the patient unconscious, she started doing CPR on him and also gave him one dose of intranasal Narcan. In the ED, VS on arrival reported to be RR of 18, with Sat 96% on RA.? General physical exam was otherwise unremarkable.? Labs in the ED were notable for a BUN and creatinine of 15/1.4 (baseline creatinine about 0.8), ALT borderline elevated, troponin normal.? COVID negative.? Tox screen positive for opiates and fentanyl. While in the ED, the patient has sat dropped to 86%.? He was given 4 mg intranasal Narcan x2 doses.? At 00:21, the patient's oxygen saturation dropped to 84%, was given one additional dose Narcan and put on 2 L NC oxygen and given IVF.? By 6am, he was somnolent but Sat?ing 95% and above on room air.? Was planned for d/c with home Narcan.? Given more Narcan at 0630.? More sleepy at 9am, was given IV Narcan, after which he fully woke up. At 10am more sleepy, was started on Narcan drip, 1mg/hour.? I was called and saw him in the ED at 11am.? He was sleepy and grimaced to pain.? RR was 8-10 on 2L NC, Sat 96%.? He was sitting up in bed.? The airway was clear, altho the patient is robust, 5-8?, 100kg, and has head and neck habitus suggestive of KEEGAN.? PER, about 1mm.? No JVD.? Chest is clear.? CXR was clear. IMPRESSION:? Heroin and fentanyl OD.? No evidence of neg pressure pulmon edema, which he had last time. Plan: Admit to ICU for Narcan infusion.? Monitor Sat on room air, if possible.? Taper Narcan as tolerated.? Then f/u by Medicine and Amanda Alvarez. Critical care time (including d/w ED staff and full chart rev):? 45+ min. [facility] Past Medical History Medical History COVID-19 Depression Heroin abuse High cholesterol HTN (hypertension) HTN (hypertension) Intentional weight loss Sudden hearing loss Family History Family History Father Pancreatic cancer Mother Diabetes Surgical History Surgical History No history of previous surgery Social History Social History Household Members: Significant Other Housing: Apartment Do you presently have visiting nurse or other home services: No Alcohol intake: never Patient Tobacco Use Status: Never used Tobacco Use of substances other than those prescribed or required for medical reasons: Yes Substance Use Type: Heroin Substance Use Frequency: Socially Advance Directives: No service: No Current occupational status: unemployed Meds Allergies Allergy/AdvReac Type Severity Reaction Status Date / Time kiwi [KIWI] Allergy Unknown SWOLLEN Verified 03/28/21 23:20 LIPS Active Medications: Current Medications Naloxone HCl 5 mg/ Dextrose 100 mls @ 20 mls/hr IV .Q5H RADHA Last Admin: 03/29/21 10:55 Dose: 1 mg/hr, 20 mls/hr Documented by: Pharmacy Consult (Consult Rx Perform Med Rec) 1 each MISCELLANE ONCE PRN PRN Reason: Consult order Home Medications Medication Instructions Recorded Confirmed Last Taken Type pramipexole 0.25 mg tablet 1 tab PO BEDTIME 01/14/21 03/29/21 03/28/21 History acetaminophen 500 mg tablet 1 tab PO TID PRN 03/29/21 03/29/21 Unknown History albuterol sulfate 90 mcg/actuation 2 puff INHALATION QID PRN 03/29/21 03/29/21 Unknown History aerosol inhaler atorvastatin 80 mg tablet 1 tab PO BEDTIME 03/29/21 03/29/21 03/28/21 History diclofenac sodium 75 mg 1 tab PO BID 03/29/21 03/29/21 03/28/21 History tablet,delayed release escitalopram oxalate 5 mg tablet 2 tab PO DAILY 03/29/21 03/29/21 03/28/21 History fluticasone propionate 110 2 puff PO BID 03/29/21 03/29/21 03/28/21 History mcg/actuation HFA aerosol inhaler (Flovent HFA) lisinopril 20 1 tab PO DAILY 03/29/21 03/29/21 03/28/21 History mg-hydrochlorothiazide 25 mg tablet Physical Exam Vital Signs: Vital Signs: Last Vital Signs Temp 97.5 F 03/28/21 23:20 Pulse 76 03/29/21 13:44 Resp 10 L 03/29/21 13:44 BP 122/79 03/29/21 13:44 Pulse Ox 100 03/29/21 13:44 BMI result Body Mass Index 33.4 Results Labs CBC and Chem 7: 03/28/21 23:40 03/28/21 23:40 Labs: Laboratory Results - last 24 hr 03/28/21 03/28/21 03/28/21 23:40 23:40 23:40 MCV 88.1 MCH 29.5 MCHC 33.5 RDW 12.9 Plt Count 341 MPV 9.7 Immature Gran % (Auto) 0.3 Neut % (Auto) 80.0 H Lymph % (Auto) 13.1 L [place] % (Auto) 5.8 Eos % (Auto) 0.5 Baso % (Auto) 0.3 Lymph # (Auto) 1.3 Barron # (Auto) 0.6 Eos # (Auto) 0.1 Baso # (Auto) 0.0 Abs Immat Gran (auto) 0.03 Absolute Neuts (auto) 7.9 Absolute Nucleated RBC 0.000 Nucleated RBC % (auto) 0.0 VBG pH VBG pCO2 VBG pO2 VBG HCO3 VBG O2 Saturation VBG Base Excess Anion Gap 18 Estim Creat Clear Calc 73.3 Estimated GFR 54 Random Glucose 242 H D Calcium 10.2 D Total Bilirubin 0.7 Direct Bilirubin 0.3 AST 32 ALT 58 H Alkaline Phosphatase 63 Total Protein 8.1 H D Albumin 4.8 D Urine Color Urine Appearance Urine pH Ur Specific [place] Urine Protein Urine Glucose (UA) Urine Ketones Urine Blood Urine Nitrite Ur Leukocyte Esterase Urine RBC Urine WBC Ur Squamous Epith Cells Urine Bacteria Urine Mucus Urine Opiates Screen Urine Fentanyl Screen Ur Barbiturates Screen Ur Phencyclidine Scrn Ur Amphetamines Screen U Benzodiazepines Scrn Urine Cocaine Screen U Marijuana (THC) Screen Ethyl Alcohol < 10 COVID-19 (ELBA) COVID-19 Clin Com 03/29/21 03/29/21 03/29/21 00:44 00:44 10:18 MCV MCH MCHC RDW Plt Count MPV Immature Gran % (Auto) Neut % (Auto) Lymph % (Auto) Barron % (Auto) Eos % (Auto) Baso % (Auto) Lymph # (Auto) Barron # (Auto) Eos # (Auto) Baso # (Auto) Abs Immat Gran (auto) Absolute Neuts (auto) Absolute Nucleated RBC Nucleated RBC % (auto) VBG pH 7.33 VBG pCO2 59 VBG pO2 51 VBG HCO3 31 H VBG O2 Saturation 76.0 VBG Base Excess 4.3 Anion Gap Estim Creat Clear Calc Estimated GFR Random Glucose Calcium Total Bilirubin Direct Bilirubin AST ALT Alkaline Phosphatase Total Protein Albumin Urine Color YELLOW Urine Appearance CLEAR Urine pH 5.5 Ur Specific [place] >= 1.030 H Urine Protein TRACE Urine Glucose (UA) 250 H Urine Ketones 15 Urine Blood TRACE Urine Nitrite NEG Ur Leukocyte Esterase NEG Urine RBC 0-2 Urine WBC 0 Ur Squamous Epith Cells TRACE Urine Bacteria NONE Urine Mucus TRACE Urine Opiates Screen POSITIVE H Urine Fentanyl Screen POSITIVE H Ur Barbiturates Screen Not Detected Ur Phencyclidine Scrn Not Detected Ur Amphetamines Screen Not Detected U Benzodiazepines Scrn Not Detected Urine Cocaine Screen Not Detected U Marijuana (THC) Screen Not Detected Ethyl Alcohol COVID-19 (ELBA) COVID-19 Clin Com 03/29/21 11:06 MCV MCH MCHC RDW Plt Count MPV Immature Gran % (Auto) Neut % (Auto) Lymph % (Auto) Barron % (Auto) Eos % (Auto) Baso % (Auto) Lymph # (Auto) Barron # (Auto) Eos # (Auto) Baso # (Auto) Abs Immat Gran (auto) Absolute Neuts (auto) Absolute Nucleated RBC Nucleated RBC % (auto) VBG pH VBG pCO2 VBG pO2 VBG HCO3 VBG O2 Saturation VBG Base Excess Anion Gap Estim Creat Clear Calc Estimated GFR Random Glucose Calcium Total Bilirubin Direct Bilirubin AST ALT Alkaline Phosphatase Total Protein Albumin Urine Color Urine Appearance Urine pH Ur Specific [place] Urine Protein Urine Glucose (UA) Urine Ketones Urine Blood Urine Nitrite Ur Leukocyte Esterase Urine RBC Urine WBC Ur Squamous Epith Cells Urine Bacteria Urine Mucus Urine Opiates Screen Urine Fentanyl Screen Ur Barbiturates Screen Ur Phencyclidine Scrn Ur Amphetamines Screen U Benzodiazepines Scrn Urine Cocaine Screen U Marijuana (THC) Screen Ethyl Alcohol COVID-19 (ELBA) Negative COVID-19 Clin Com See Note Imaging Radiologist's Impressions: Impressions Chest X-Ray 03/28/21 23:57 IMPRESSION: No acute cardiopulmonary findings. No acutely displaced rib fractures. Chest X-Ray 03/29/21 10:23 IMPRESSION: No acute disease. Critical Care Time Critical Care Time (minutes): 60
--- NOTE | 2021-03-29 14:41 | HO.ADDICTCON ---
History of Present Illness Date of Service: 03/29/2021 Chief Complaint: Heroin/fentanyl OD Reason for Consult: opioid overdose Requesting physician: Vanessa Harrington Discussed with referring provider: Yes Sources of Information: patient interviewed and chart reviewed HPI Narrative: Patient is a 50 year old male known to this technical writer and editor via previous eval. History of OUD, in ED with heroin/fentanyl overdose. When this technical writer and editor went to see patient he was desatting and required O2 via NC, at this time he had already recieved several doses of narcan both IN and IV and was still drowsy. Patient reporting that he has been using on and off for the last few months. Using btwn 4-10 bags at at time--unwilling to disclose daily use. Declines any treatment offers--medications, ATS etc. Limited insight regarding risky use. While he says I know I am here because of the heroin--I am just going to stop again for a little while This technical writer and editor engaged patient in risk reduction discussion. Advisig him that using the same amount he was using after a period of not using increases his risk of overdose. Encouraged to use smaller amounts and avoid IV use if possible. Discussed other overdose prevention strategies, such as not using alone, narcan in the area, etc. Reminded patient that with more frequent use dependance will develop which is accompanies by withdrawal sx. Patient reports this is his 5th overdose. Review of Systems Constitutional: Reports as per HPI (patient reporting that he feels sleepy ) Diagnostics Vital Signs (24Hr): Vital Signs - 24 hr 03/28/21 23:20 03/28/21 23:34 03/29/21 01:58 Temperature 97.5 F Pulse Rate 112 H 77 Respiratory Rate 18 14 Blood Pressure 167/98 H 127/73 Pulse Oximetry 96 86 L 97 03/29/21 02:42 03/29/21 06:18 03/29/21 07:01 Temperature Pulse Rate 88 84 85 Respiratory Rate 10 L 10 L 18 Blood Pressure 134/86 147/85 H 165/91 H Pulse Oximetry 97 97 03/29/21 08:51 03/29/21 09:55 03/29/21 10:10 Temperature Pulse Rate 83 84 90 Respiratory Rate 12 16 13 Blood Pressure 154/83 H 146/84 H Pulse Oximetry 82 L 03/29/21 11:00 03/29/21 13:44 Temperature Pulse Rate 105 H 76 Respiratory Rate 8 L 10 L Blood Pressure 159/80 H 122/79 Pulse Oximetry 96 100 BMI result Body Mass Index 33.4 Labs Results: 03/28/21 23:40 03/28/21 23:40 Labs: Laboratory Results - last 48 hr 03/28/21 03/28/21 03/28/21 23:40 23:40 23:40 WBC 9.9 RBC 4.71 Hgb 13.9 L Hct 41.5 L MCV 88.1 MCH 29.5 MCHC 33.5 RDW 12.9 Plt Count 341 MPV 9.7 Immature Gran % (Auto) 0.3 Neut % (Auto) 80.0 H Lymph % (Auto) 13.1 L [place] % (Auto) 5.8 Eos % (Auto) 0.5 Baso % (Auto) 0.3 Lymph # (Auto) 1.3 [place] # (Auto) 0.6 Eos # (Auto) 0.1 Baso # (Auto) 0.0 Abs Immat Gran (auto) 0.03 Absolute Neuts (auto) 7.9 Absolute Nucleated RBC 0.000 Nucleated RBC % (auto) 0.0 VBG pH VBG pCO2 VBG pO2 VBG HCO3 VBG O2 Saturation VBG Base Excess Sodium 141 Potassium 3.8 Chloride 102 Carbon Dioxide 25 Anion Gap 18 BUN 15 Creatinine 1.41 H Estim Creat Clear Calc 73.3 Estimated GFR 54 Random Glucose 242 H D Calcium 10.2 D Total Bilirubin 0.7 Direct Bilirubin 0.3 AST 32 ALT 58 H Alkaline Phosphatase 63 Troponin I High Sens Total Protein 8.1 H D Albumin 4.8 D Urine Color Urine Appearance Urine pH Ur Specific [place] Urine Protein Urine Glucose (UA) Urine Ketones Urine Blood Urine Nitrite Ur Leukocyte Esterase Urine RBC Urine WBC Ur Squamous Epith Cells Urine Bacteria Urine Mucus Urine Opiates Screen Urine Fentanyl Screen Ur Barbiturates Screen Ur Phencyclidine Scrn Ur Amphetamines Screen U Benzodiazepines Scrn Urine Cocaine Screen U Marijuana (THC) Screen Ethyl Alcohol < 10 COVID-19 (ELBA) COVID-19 Clin Com 03/28/21 03/29/21 03/29/21 23:40 00:44 00:44 WBC RBC Hgb Hct MCV MCH MCHC RDW Plt Count MPV Immature Gran % (Auto) Neut % (Auto) Lymph % (Auto) [place] % (Auto) Eos % (Auto) Baso % (Auto) Lymph # (Auto) [place] # (Auto) Eos # (Auto) Baso # (Auto) Abs Immat Gran (auto) Absolute Neuts (auto) Absolute Nucleated RBC Nucleated RBC % (auto) VBG pH VBG pCO2 VBG pO2 VBG HCO3 VBG O2 Saturation VBG Base Excess Sodium Potassium Chloride Carbon Dioxide Anion Gap BUN Creatinine Estim Creat Clear Calc Estimated GFR Random Glucose Calcium Total Bilirubin Direct Bilirubin AST ALT Alkaline Phosphatase Troponin I High Sens < 3.5 D Total Protein Albumin Urine Color YELLOW Urine Appearance CLEAR Urine pH 5.5 Ur Specific [place] >= 1.030 H Urine Protein TRACE Urine Glucose (UA) 250 H Urine Ketones 15 Urine Blood TRACE Urine Nitrite NEG Ur Leukocyte Esterase NEG Urine RBC 0-2 Urine WBC 0 Ur Squamous Epith Cells TRACE Urine Bacteria NONE Urine Mucus TRACE Urine Opiates Screen POSITIVE H Urine Fentanyl Screen POSITIVE H Ur Barbiturates Screen Not Detected Ur Phencyclidine Scrn Not Detected Ur Amphetamines Screen Not Detected U Benzodiazepines Scrn Not Detected Urine Cocaine Screen Not Detected U Marijuana (THC) Screen Not Detected Ethyl Alcohol COVID-19 (ELBA) COVID-19 [place] 03/29/21 03/29/21 10:18 11:06 WBC RBC Hgb Hct MCV MCH MCHC RDW Plt Count MPV Immature Gran % (Auto) Neut % (Auto) Lymph % (Auto) [place] % (Auto) Eos % (Auto) Baso % (Auto) Lymph # (Auto) [place] # (Auto) Eos # (Auto) Baso # (Auto) Abs Immat Gran (auto) Absolute Neuts (auto) Absolute Nucleated RBC Nucleated RBC % (auto) VBG pH 7.33 VBG pCO2 59 VBG pO2 51 VBG HCO3 31 H VBG O2 Saturation 76.0 VBG Base Excess 4.3 Sodium Potassium Chloride Carbon Dioxide Anion Gap BUN Creatinine Estim Creat Clear Calc Estimated GFR Random Glucose Calcium Total Bilirubin Direct Bilirubin AST ALT Alkaline Phosphatase Troponin I High Sens Total Protein Albumin Urine Color Urine Appearance Urine pH Ur Specific [place] Urine Protein Urine Glucose (UA) Urine Ketones Urine Blood Urine Nitrite Ur Leukocyte Esterase Urine RBC Urine WBC Ur Squamous Epith Cells Urine Bacteria Urine Mucus Urine Opiates Screen Urine Fentanyl Screen Ur Barbiturates Screen Ur Phencyclidine Scrn Ur Amphetamines Screen U Benzodiazepines Scrn Urine Cocaine Screen U Marijuana (THC) Screen Ethyl Alcohol COVID-19 (ELBA) Negative COVID-19 [employer] Com See Note Imaging Radiology Impressions: ITS Impressions Chest X-Ray 03/28/21 23:57 IMPRESSION: No acute cardiopulmonary findings. No acutely displaced rib fractures. Chest X-Ray 03/29/21 10:23 IMPRESSION: No acute disease. Mental Status Exam Mental Status Exam Patient Appearance: Appropriate Patient Orientation: Person, Place, Time and Situation Level of Consciousness: Awake and Drowsy Mood Description: Calm Affect Description: Calm Judgement: Fair (limited insight ) Medications Medications Current Medications Naloxone HCl 5 mg/ Dextrose 100 mls @ 20 mls/hr IV .Q5H RADHA Last Admin: 03/29/21 10:55 Dose: 1 mg/hr, 20 mls/hr Documented by: Pharmacy Consult (Consult Rx Perform Med Rec) 1 each MISCELLANE ONCE PRN PRN Reason: Consult order Allergies Allergies Allergy/AdvReac Type Severity Reaction Status Date / Time kiwi [KIWI] Allergy Unknown SWOLLEN Verified 03/28/21 23:20 LIPS Assessment & Plan Assessment & Plan (1) Opioid use disorder: Status: Acute Code(s): F11.90 - Opioid use, unspecified, uncomplicated Assessment and Plan: risk redcution discussion as in HPI patient being admitted, RS team will follow up prior tot discharge again I spent __35____ minutes with the patient and/or on the patient floor today, greater than?50% of which was spent counseling/coordinating care. [facility] Past Medical History Medical History COVID-19 Depression Heroin abuse High cholesterol HTN (hypertension) HTN (hypertension) Intentional weight loss Sudden hearing loss Family History Family History Father Pancreatic cancer Mother Diabetes Surgical History Surgical History No history of previous surgery Social History Social History Household Members: Significant Other Housing: Apartment Do you presently have visiting nurse or other home services: No Alcohol intake: never Patient Tobacco Use Status: Never used Tobacco Use of substances other than those prescribed or required for medical reasons: Yes Substance Use Type: Heroin Substance Use Frequency: Socially Advance Directives: No service: No Current occupational status: unemployed
[2021-03-29] MEDS: 0.9 % Sodium Chloride 1,000 ML 50 ML IVCONT (18:09)
[2021-03-30] VITALS (30 sets, daily range): BP systolic 100–149; BP diastolic 37–90; PULSE 62–100; RESP 7–26; TEMP 36.7–37.2; O2SAT 85–100; BMI 35.5
[2021-03-30] MEDS: Naloxone HCl 5 MG in Dextrose 5 % 95 ML 8 MG IV ×2 (00:11→18:29)
[2021-03-30 00:55] LABS: ABG Base Excess 3.8 mmol/L; ABG HCO3 32 mmol/L (22-26); ABG pCO2 65 mmHg (32-45); ABG pH 7.29 (7.35-7.45); ABG pO2 77 mmHg (83-108)
[2021-03-30 01:00] LABS: ABG Refer to POC result
--- NOTE | 2021-03-30 02:20 | PC.NURSE ---
Upon initial assessment at 1900- pt lethargic, arousable to tactile stimuli, alert to person but requires frequent re-orientation. At approx 1915, mental status remains the same, SpO2 dropping to 80s via 2L NC, PA made aware, states to increase narcan gtt 0.15 mg/hr. At approx 2030, increasingly lethargic requiring shaking/sternal rub to arouse, easy falls back to sleep without stimulation, RR 6-7, SpO2 dropping to 70s. Per PA, to increase narcan gtt to 0.4 mg/hr. At approx 0045, no improvement noted in pt status, ABGs ordered. PA aware of results, placed on BiPAP 16/8/30% at approx 0100. called/updated on pt at approx 0130- states to increase narcan gtt to 0.8 mg/hr. At 0230, pt becoming more alert, drowsy, but able to use urinal and phone intermittently.
[2021-03-30 05:33] LABS: MANUAL DIFF FLAG NO
[2021-03-30 05:38] LABS: Basophils Percent Auto 0.3 % (0-2); Eosinophils Absolute Auto 0.2 X10*3/uL (0.0-0.4); Eosinophils Percent Auto 2.1 % (0-4); Hematocrit 36.1 % (42.0-52.0); Imm Gran Abs Auto 0.02 X10*3/uL (0.00-0.03); Imm Gran Pct Auto 0.2 % (0.0-0.4); Lymphocytes Absolute Auto 1.1 X10*3/uL (1.2-4.9); Lymphocytes Percent Auto 12.6 % (20-40); Mean Corpuscular HGB Conc 33.2 g/dl (31.0-36.0); Mean Corpuscular Volume 90.3 fL (80.0-98.0); Mean Platelet Volume 9.8 fL (9.4-12.4); Monocytes Absolute Auto 0.8 X10*3/uL (0.1-1.2); Monocytes Percent Auto 8.9 % (2-11); Neutrophils Absolute Auto 6.9 x10*3/uL (2.0-8.3); Neutrophils Percent Auto 75.9 % (45-73); Platelet Count 303 X10*3/uL (160-400); Red Cell Distribution Width 13.2 % (11.0-16.0); White Blood Count 9.1 X10*3/uL (4.8-10.8)
[2021-03-30 05:58] LABS: Alanine Aminotransferase 42 U/L (0-40); Albumin Level 4.3 g/dL (3.5-5.0); Alkaline Phosphatase 52 U/L (39-117); Anion Gap 13 (12-20); Aspartate Amino Transferase 21 U/L (5-37); Blood Urea Nitrogen 13 mg/dL (9-16); Calcium 9.2 mg/dL (8.4-10.2); Carbon Dioxide 28 mmol/L (22-29); Chloride 99 mmol/L (96-108); Creatinine Clr Calc Pharmacy 129.3; Estimated Glomerular Filt Rate > 60; Glucose Random 120 mg/dL (60-115); Potassium 4.2 mmol/L (3.3-5.1); Sodium 136 mmol/L (135-145); Total Protein 7.2 g/dL (6.5-8.0)
[2021-03-30] MEDS: Naloxone HCl 5 MG in Dextrose 5 % 95 ML 16 MG IV ×2 (06:01→11:55)
--- NOTE | 2021-03-30 12:47 | PM.CCPN ---
Subjective Subjective Date of Service: 03/30/21 Interval History: Mr. Bartolome Tamayo is admitted to the ICU yesterday afternoon with resp depression after a heroin/fentanyl OD. The patient is a 50 yo M with PMHx of depression, heroin abuse, and HTN.? He had a previous OD this past January, and three ODs prior to that.? Was seen by Amanda Alvarez at the January OD. The patient was brought to the emergency room by family late on Mar 28.? The patient was ambulatory.? He was somnolent but easily arousable, and alert enough to report that he used heroin and fentanyl earlier that day. ?The girlfriend reported that she?d found the patient unconscious, she started doing CPR on him, and also gave him one dose of intranasal Narcan. In the ED, VS on arrival reported RR of 18, with Sat 96% on RA.? General physical exam was otherwise unremarkable.? Labs in the ED were notable for a BUN and creatinine of 15/1.4 (baseline creatinine about 0.8), ALT borderline elevated, troponin normal.? COVID negative.? Tox screen positive for opiates and fentanyl. While in the ED, the patient?s sat dropped to 86%.? He was given 4 mg intranasal Narcan x2 doses.? At 00:21, the patient's oxygen saturation dropped to 84%, was given an additional dose Narcan and put on 2L NC oxygen.? By 6am, he was somnolent but Sat?ing 95% and above on room air.? Was given more Narcan at 06:30.? Was planned for d/c with home Narcan.? Was more sleepy at 9am, was given IV Narcan, after which he fully woke up. But at 10am was more sleepy, and was started on Narcan drip, 1mg/hour.? I saw him in the ED at 11am.? He was very sleepy and grimaced to pain.? RR was 8-10 on 2L NC, Sat 96%.? He was sitting up in bed.? The airway was clear, altho the patient is robust, 5-8?, 100kg, and has head and neck habitus were suggestive of KEEGAN.? PER, about 1mm.? No JVD.? Chest is clear.? CXR was clear. Patient was admitted to the ICU.? By evening, the patient was fully awake.? The Narcan was discontinued.? But he became renal lead java developer architect I eyes to and fell asleep, with sat dropping into the 70s.? He was put back on the Narcan on oxygen.? At 01:00 this morning, he had to be put on BiPAP. This morning, he was fully awake, conversant, even using his cellphone.? I.e. completely normal mental status.? Eating and drinking.? We took him off BiPAP and tried leaving him on room air, with the Narcan drip still going and 0.8 mg/hour.? His pupils were very miotic, about 0.5 mm bilaterally.? Despite being awake, his Sat occ dipped into the 70?s, mostly 80?s.? I put him back on 1L NC.? Staying at about 90% Sat, despite being fully awake. Tried mult times to take him off oxygen, while he?s still on the Narcan at 0.8 mg.? At 1pm, Sat is 90-95% on 1LNC.? Pupils still 1/2mm.? Sat dropping into 80?s and even 70?s when oxygen is d/c?d.? No JVD, chest is CTA w normal exp phase, and no edema. LABORATORY DATA.? As below.? Notably, creatinine has normalized with IV fluids and with the patient drinking fluids quite a bit overnight. IMPRESSION:? Heroin and fentanyl OD.? No evidence of neg pressure pulmon edema, which he had last time in January. The dose of Narcan he?s requiring is extraordinary, and the length of time he?s requiring it is unusually prolonged.? The reason for this is unclear.? Discussed with Amanda Alvarez.? He?s not using anything since he?s been here as far as we can tell.? Discussed with lab at length.? I?ve sent off a GCMS fentanyl and a methadone assay. Continue to wean off oxygen and wean off Narcan as tolerated.? Stop IVFs. Time: . Critical Care Time (minutes): 0 Physical Exam Vital Signs: Vital Signs: Last Vital Signs Temp 98.1 F 03/30/21 12:00 Pulse 81 03/30/21 12:00 Resp 23 H 03/30/21 12:00 BP 108/41 L 03/30/21 12:00 Pulse Ox 89 L 03/30/21 12:00 BMI result Body Mass Index 35.5 Objective Data Labs CBC & Chem 7: 03/30/21 05:22 03/30/21 05:22 Labs: Laboratory Results - last 24 hr 03/30/21 03/30/21 03/30/21 00:47 05:22 05:22 WBC 9.1 RBC 4.00 L Hgb 12.0 L Hct 36.1 L MCV 90.3 MCH 30.0 MCHC 33.2 RDW 13.2 Plt Count 303 MPV 9.8 Immature Gran % (Auto) 0.2 Neut % (Auto) 75.9 H Lymph % (Auto) 12.6 L Hall % (Auto) 8.9 Eos % (Auto) 2.1 Baso % (Auto) 0.3 Lymph # (Auto) 1.1 L Hall # (Auto) 0.8 Eos # (Auto) 0.2 Baso # (Auto) 0.0 Abs Immat Gran (auto) 0.02 Absolute Neuts (auto) 6.9 Absolute Nucleated RBC 0.000 Nucleated RBC % (auto) 0.0 O2 Saturation 94.0 ABG pH at Pt Temp 7.29 L ABG pCO2 at Pt Temp 65 H* ABG pO2 at Pt Temp 77 L ABG HCO3 32 H ABG Base Excess (Actual) 3.8 Sodium 136 Potassium 4.2 Chloride 99 Carbon Dioxide 28 Anion Gap 13 BUN 13 Creatinine 0.80 Estim Creat Clear Calc 129.3 Estimated GFR > 60 Random Glucose 120 H D Calcium 9.2 D Total Bilirubin 1.0 AST 21 ALT 42 H Alkaline Phosphatase 52 Total Protein 7.2 Albumin 4.3 Quality Stroke Does the patient have a stroke diagnosis?: No VTE Prior VTE?: No VTE Risk Level:: Medical - low VTE Device Contraindication: Treatment Not Indicated VTE Drug Contraindication: Treatment Not Indicated
--- NOTE | 2021-03-30 16:03 | MHC.CM.PN ---
Attempted to meet with pt x2: pt on cell on attempt #1 and going for a walk on attempt #2. Will see pt on 03/31: Call placed to [facility] to verify PCP: Dr. Desai.
[2021-03-31] VITALS (28 sets, daily range): BP systolic 110–173; BP diastolic 3–91; PULSE 57–112; RESP 8–22; TEMP 36.9–37; O2SAT 90–100; BMI 35.6
--- NOTE | 2021-03-31 01:35 | PC.NURSE ---
CARE ASSUMED 23:15..AWAKE..ALERT..ORIENTED X3..VSS..O2 2 L/M..NO DISTRESS...SAO2 98%...STOOD TO VOID--OFF O2..SAO2 78-82%--DENIED SOB....BACK TO BED...RT PRESENT FOR NOCTURNAL BIPA 26/09 AND FIO2 30%...SAO2 96% AND Ve 11-12 l/m awake...readily sleeping...desat to 80% and decreased vE...NARCAN DRIP TITRATED 0.4 MG/HR TO 0.8 MG/HR..AWASKENED WITH IMPROVED SAO2/Ve...positioned with hob 45 degrees...dozing after positioning...sao2 98-99% and Ve 6-8 l/mn..icu pa present/aware..nsr..no ectopy.
[2021-03-31] MEDS: Naloxone HCl 5 MG in Dextrose 5 % 95 ML 16 MG IV (03:37)
[2021-03-31 05:38] LABS: VBG Base Excess 8.9 mmol/L; VBG HCO3 35 mmol/L (22-26); VBG pCO2 58 mmHg; VBG pH 7.39 (7.32-7.43); VBG pO2 46 mmHg
[2021-03-31 05:49] LABS: MANUAL DIFF FLAG NO
[2021-03-31 05:51] LABS: Basophils Percent Auto 0.4 % (0-2); Eosinophils Absolute Auto 0.3 X10*3/uL (0.0-0.4); Eosinophils Percent Auto 4.3 % (0-4); Hematocrit 33.5 % (42.0-52.0); Hemoglobin 11.1 g/dl (14.0-18.0); Imm Gran Abs Auto 0.02 X10*3/uL (0.00-0.03); Imm Gran Pct Auto 0.3 % (0.0-0.4); Lymphocytes Absolute Auto 1.2 X10*3/uL (1.2-4.9); Lymphocytes Percent Auto 17.1 % (20-40); Mean Corpuscular HGB Conc 33.1 g/dl (31.0-36.0); Mean Corpuscular Hemoglobin 29.8 pg (27.0-33.0); Mean Corpuscular Volume 89.8 fL (80.0-98.0); Mean Platelet Volume 9.8 fL (9.4-12.4); Monocytes Absolute Auto 0.6 X10*3/uL (0.1-1.2); Monocytes Percent Auto 8.4 % (2-11); Neutrophils Absolute Auto 4.9 x10*3/uL (2.0-8.3); Neutrophils Percent Auto 69.5 % (45-73); Platelet Count 268 X10*3/uL (160-400); Red Blood Count 3.73 X10*6/uL (4.60-5.80); Red Cell Distribution Width 12.5 % (11.0-16.0)
[2021-03-31 06:03] LABS: Venous Blood Gas Refer to POC result
[2021-03-31 06:07] LABS: Alanine Aminotransferase 37 U/L (0-40); Albumin Level 3.9 g/dL (3.5-5.0); Alkaline Phosphatase 48 U/L (39-117); Anion Gap 11 (12-20); Aspartate Amino Transferase 22 U/L (5-37); Bilirubin Total 0.8 mg/dL (0.0-1.0); Blood Urea Nitrogen 12 mg/dL (9-16); Calcium 9.4 mg/dL (8.4-10.2); Carbon Dioxide 32 mmol/L (22-29); Chloride 98 mmol/L (96-108); Estimated Glomerular Filt Rate > 60; Glucose Random 99 mg/dL (60-115); Potassium 4.2 mmol/L (3.3-5.1); Sodium 137 mmol/L (135-145)
--- NOTE | 2021-03-31 10:51 | CA_ITS ---
Transthoracic Echocardiogram Patient (Last, First, Middle): Matt Wells, Gender: Male Date of : 1970 Age: 50 Procedure Date: 03/31/2021 Procedure Type: Transthoracic Echocardiogram Location: ICU Height: 172.72 cm Weight: 106.14 kg BSA: 2.18 m2 Heart Rate: bpm BP: 133 / 82 mmHg Biological Chemist: LISA Potter MD: Rojelio Melton MD Customer Management Specialist: Rajan Addison MD Symptoms: intermittent hypoxemia; r/o shunt Study Quality: Good ECG Rhythm: Sinus Conclusions: - 1. Normal biventricular systolic function noted 2. No evidence of PFO Findings Left Ventricle Normal left ventricular size, thickness, and systolic function. Right Ventricle Normal right ventricular cavity size and systolic function. Atria There is no evidence of interatrial shunt by agitated saline. Prior Study Comparison No significant change compared to prior study dated: 01/11/2021. Measurements Tricuspid Valve TR Pk [place]: 2.50 TR Pk Grad: 25.00 RA Press: 8.00 RVSP: 33.00 Updated in Other Vendor System with Status of Final Rajan Addison MD electronically signed on 03/31/2021 1:45:43 PM with status of Final
[2021-03-31 11:03] LABS: ABG Base Excess 10.8 mmol/L; ABG HCO3 38 mmol/L (22-26); ABG pCO2 64 mmHg (32-45); ABG pH 7.38 (7.35-7.45); ABG pO2 42 mmHg (83-108)
--- NOTE | 2021-03-31 11:37 | MHC.CM.PN ---
Met with pt to continue d/c plan discussion: pt resides with significant other and other family members: drives, independent with care needs and no identifiable barriers to care needs. PCP is Dr. Desai, declined HCP completion, COVID vax x2. Pt will call his brother or a friend for transportation when medically ready.
[2021-03-31 12:01] LABS: Total Protein 6.5 g/dL (6.5-8.0)
[2021-03-31] MEDS: Naloxone HCl 0.4 MG/ML VIAL 0.8 MG IVPUSH ×2 (12:12→14:05)
[2021-03-31] MEDS: Naloxone HCl 5 MG in Dextrose 5 % 95 ML 8 MG IV ×2 (12:17→20:16)
--- NOTE | 2021-03-31 12:22 | P.PNCC_ITS ---
Subjective Subjective Date of Service: 03/31/21 Interval History: Mr. Bartolome Tamayo was admitted to the ICU Mar 29 with resp depression after a heroin/fentanyl OD. The patient is a 50 yo M with PMHx of depression, heroin abuse, and HTN.? He had a previous OD this past January, that resulted in an episode of NPPE (negative pressure pulmon edema).? He was seen by Amanda Alvarez at that time.? And he had three ODs prior to that. The patient was brought to the emergency room by family late on Mar 28.? The patient was ambulatory.? He was somnolent but easily arousable, and alert enough to report that he used heroin and fentanyl earlier that day. ?The girlfriend reported that she?d found the patient unconscious, she started doing CPR on him, and also gave him one dose of intranasal Narcan. In the ED, VS on arrival reported a RR of 18, with Sat 96% on RA.? General physical exam was otherwise unremarkable.? Labs in the ED were notable for a BUN and creatinine of 15/1.4 (baseline creatinine about 0.8), ALT borderline elevated, troponin normal.? COVID negative.? Tox screen positive for opiates and fentanyl. While in the ED, the patient?s sat dropped to 86%.? Over the course of hours in the ED, he was given mult doses intranasal Narcan, then IV, then a drip was started at 1mg/hr, after which he was admitted to the ICU.? By evening, the patient was fully awake.? The Narcan was discontinued.? But he became somnolent again with pinpoint pupils.? The drip was restarted. Yesterday he was out of bed a good part of the day.? On the Narcan drip at 0.8 mg/hour, his pupils were still very small, about 0.5 mm.? When he was awake, sat on room air would be in the mid 90s; when he would fall asleep in his chair, he was clearly obstructing, and sat on room air would drop into the low 80s.? We put him on 1 L nasal cannula to keep his sat up. This morning on my exam, he was fully awake, conversant, even using his sandra lphone, completely normal mental status.? Eating and drinking.? On 3L NC, Sat was 100%.? Breathing easy, RR 14-16, with the Narcan at 0.8mg/hr.? I turned his oxygen off, and turned his Narcan down to 0.4mg/hr, then 0.2mg/hr.? No JVD, chest CTA w normal exp phase, no edema. While he was sitting up in the chair, his Sat was bouncing between the 50s and the 90?s.? It would go from one extreme to the other in a span of 10 seconds.? We tried three diff Sat monitors, all had the same readings.? An ABG while the Sat was 75% w the patient on room air showed 7.38/63/41/+10. We got him into bed for an echo bubble study.? After we got him into bed, he demonstrated marked new somnolence, falling asleep while I was talking to him. We did the echo bubble study:? LV shows normal size and fxn.? RV top normal size, normal fxn.? RV:LV cavity ratio is normal.? TV CWD measured 2.5 cm (gradient 25mm).? IVC normal sized.? No PFO or VSD demonstrated on the bubble study. After the echo study, he was falling asleep with Sats in the 60?s on 3L NC.? We gave him 0.8mg Narcan IVP.? He instantly woke up and asked us if we gave him Narcan.? His sat shot up to 99% on room air. Security came up and searched his belongings in the room and searched his shorts.? No contraband was found.? The patient denied using anything.? With the patient staying awake, Sat is 88-91% on room air. LABORATORY DATA.? As below.? Notably, creatinine has normalized with IV fluids and with the patient drinking fluids quite a bit overnight. IMPRESSION: 1. Heroin and fentanyl OD.? No evidence of neg pressure pulmon edema, which he had last time in January. 2. Hypercarbic and hypoxemic resp failure 2? recurrent narcotization.? We?ll restart the Narcan drip.? At this point in time, I don?t think we need to r/o a PE, but I?m going to check a DDimer and check his legs 3. Likely KEEGAN, with CO2 retention.? His head and neck habitus are consistent with that.? I?ll check his serum bicarb. The dose of Narcan he?s requiring is extraordinary, and the length of time he?s requiring it is unusually prolonged.? The reason for this is unclear.? The ryan nts of this morning suggest that he?s using while in the ICU, but he swears that he?s not and we haven?t been able to find anything on him or in his belongings.? GCMS fentanyl and a methadone assay are pending. Continue to wean off oxygen and wean off Narcan as tolerated. Time:? 2 hrs? ([id number] + [id number]). Critical Care Time (minutes): 0 Physical Exam Vital Signs: Vital Signs: Last Vital Signs Temp 98.5 F 03/31/21 08:00 Pulse 85 03/31/21 11:00 Resp 12 03/31/21 11:00 BP 133/82 03/31/21 10:00 Pulse Ox 92 03/31/21 11:00 BMI result Body Mass Index 35.6 Objective Data Labs CBC & Chem 7: 03/31/21 05:30 03/31/21 05:30 Labs: Laboratory Results - last 24 hr 03/31/21 03/31/21 03/31/21 05:30 05:30 05:31 WBC 7.0 RBC 3.73 L Hgb 11.1 L Hct 33.5 L MCV 89.8 MCH 29.8 MCHC 33.1 RDW 12.5 Plt Count 268 MPV 9.8 Immature Gran % (Auto) 0.3 Neut % (Auto) 69.5 Lymph % (Auto) 17.1 L Lynn % (Auto) 8.4 Eos % (Auto) 4.3 H Baso % (Auto) 0.4 Lymph # (Auto) 1.2 Lynn # (Auto) 0.6 Eos # (Auto) 0.3 Baso # (Auto) 0.0 Abs Immat Gran (auto) 0.02 Absolute Neuts (auto) 4.9 Absolute Nucleated RBC 0.000 Nucleated RBC % (auto) 0.0 O2 Saturation ABG pH at Pt Temp ABG pCO2 at Pt Temp ABG pO2 at Pt Temp ABG HCO3 ABG Base Excess (Actual) VBG pH 7.39 VBG pCO2 58 VBG pO2 46 VBG HCO3 35 H VBG O2 Saturation 76.0 VBG Base Excess 8.9 Sodium 137 Potassium 4.2 Chloride 98 Carbon Dioxide 32 H Anion Gap 11 L BUN 12 Creatinine 0.73 Estim Creat Clear Calc 146.0 Estimated GFR > 60 Random Glucose 99 Calcium 9.4 Total Bilirubin 0.8 AST 22 ALT 37 Alkaline Phosphatase 48 Total Protein 6.5 Albumin 3.9 03/31/21 10:56 WBC RBC Hgb Hct MCV MCH MCHC RDW Plt Count MPV Immature Gran % (Auto) Neut % (Auto) Lymph % (Auto) Lynn % (Auto) Eos % (Auto) Baso % (Auto) Lymph # (Auto) Lynn # (Auto) Eos # (Auto) Baso # (Auto) Abs Immat Gran (auto) Absolute Neuts (auto) Absolute Nucleated RBC Nucleated RBC % (auto) O2 Saturation 67.0 ABG pH at Pt Temp 7.38 ABG pCO2 at Pt Temp 64 H* ABG pO2 at Pt Temp 42 L* ABG HCO3 38 H ABG Base Excess (Actual) 10.8 VBG pH VBG pCO2 VBG pO2 VBG HCO3 VBG O2 Saturation VBG Base Excess Sodium Potassium Chloride Carbon Dioxide Anion Gap BUN Creatinine Estim Creat Clear Calc Estimated GFR Random Glucose Calcium Total Bilirubin AST ALT Alkaline Phosphatase Total Protein Albumin Quality Stroke Does the patient have a stroke diagnosis?: No VTE Prior VTE?: No VTE Risk Level:: Medical - low VTE Device Contraindication: Treatment Not Indicated VTE Drug Contraindication: Treatment Not Indicated
[2021-03-31] MEDS: Naloxone HCl 5 MG in Dextrose 5 % 95 ML 4 MG IV (12:44)
[2021-03-31 13:15] LABS: Lactic Acid 1.1 mmol/L (0.5-2.0)
[2021-03-31 13:17] LABS: Anion Gap 11 (12-20); Blood Urea Nitrogen 11 mg/dL (9-16); Calcium 9.8 mg/dL (8.4-10.2); Carbon Dioxide 32 mmol/L (22-29); Chloride 98 mmol/L (96-108); Creatinine Clr Calc Pharmacy 142.4; Estimated Glomerular Filt Rate > 60; Glucose Random 104 mg/dL (60-115); Potassium 3.9 mmol/L (3.3-5.1); Sodium 137 mmol/L (135-145)
[2021-03-31 13:29] LABS: B Type Natriuretic Peptide 99 pg/mL (<100); Troponin-I High Sensitivity < 3.5 ng/L (<3.5-35.0)
[2021-03-31 15:53] LABS: D Dimer High Sensitivity < 150 NG/ML
[2021-03-31] MEDS: Lactulose 20 GM/30 ML SOLUTION 30 GM PO (16:00)
[2021-03-31] MEDS: Metoclopramide HCl 10 MG/2 ML VIAL IV ×2 (16:01→21:22)
[2021-04-01] VITALS (29 sets, daily range): BP systolic 120–176; BP diastolic 57–93; PULSE 58–104; RESP 8–23; TEMP 36.6–36.9; O2SAT 83–100; BMI 35.5
[2021-04-01] MEDS: Escitalopram Oxalate 10 MG TABLET PO (08:22)
[2021-04-01] MEDS: lisinopriL 20 MG TABLET PO (08:22)
[2021-04-01] MEDS: hydroCHLOROthiazide 25 MG TABLET PO (08:22)
[2021-04-01] MEDS: Naloxone HCl 5 MG in Dextrose 5 % 95 ML 4 MG IV (09:33)
[2021-04-01 13:13] LABS: ABG Refer to POC result
--- NOTE | 2021-04-01 14:28 | P.PNCC_ITS ---
Subjective Subjective Date of Service: 04/01/21 Interval History: Mr. Bartolome Tamayo was admitted to the ICU Mar 29 with resp depression after a heroin/fentanyl OD. The patient is a 50 yo M with PMHx of depression, heroin abuse, and HTN.? He had a previous OD this past January, that resulted in an episode of NPPE (negative pressure pulmon edema).? He was seen by Amanda Alvarez at that time.? And he had three ODs prior to that. The patient was brought to the emergency room by family late on Mar 28.? The patient was ambulatory.? He was somnolent but easily arousable, and alert enough to report that he used heroin and fentanyl earlier that day. ?The girlfriend reported that she?d found the patient unconscious, she started doing CPR on him, and also gave him one dose of intranasal Narcan. In the ED, VS on arrival reported a RR of 18, with Sat 96% on RA.? General physical exam was otherwise unremarkable.? Labs in the ED were notable for a BUN and creatinine of 15/1.4 (baseline creatinine about 0.8), ALT borderline elevated, troponin normal.? COVID negative.? Tox screen positive for opiates and fentanyl. While in the ED, the patient?s sat dropped to 86%.? Over the course of hours in the ED, he was given mult doses intranasal Narcan, then IV, then a drip was started at 1mg/hr, after which he was admitted to the ICU.? By evening, the patient was fully awake.? The Narcan was discontinued.? But he became somnolent again with pinpoint pupils.? The drip was restarted. Yesterday and the day before, the patient was out of bed in the chair a good part of the day.? His pupils were still small, and we were unable to get him off the oxygen or the Narcan drip, without him dropping his Sats as low as in the 50s (with a good pleth wave form).? He clearly had recurrent narcotization throughout the day.? And when he would fall asleep in the chair, he would clearly obstruct his airway.? We had security come up yesterday and check his clothes and his bag.? Nothing was found. Yesterday afternoon.I spoke with the team primary care physician at the [facility] about why this patient has required Narcan for almost 72 hours.? His major suggestion was the possibility of oral ingestion of a large quantity of opiate, and/or ingestion of a bag of opiate, or rectal packing with a bag-full of opiate.? I therefore wrote the patient for a dose of lactulose, two q6hr doses of Reglan, and a dose of Relistor. He had large volume stool last night 2? to the lactulose.? Overnight, he had to go onto BiPAP bec of recurrent obstruction and hypoxemia.? This morning, he?s OOB in the chair and fully awake and appropriate on my exam.? He denied ingesting any opiates, said he just snorted.? He?s on Narcan 0.2ug.? Sat is 99% on 2L.?? Breathing easy.? Pupils 2mm -- smaller than yesterday, but larger than the day before. We turned the oxygen off, but when he?d fall asleep, Sat dropped into the 70?s.? So he?s now back on 1L NC, Sat?ing 95-98% while he?s watching television. LABORATORY DATA.? Methadone and GCMS fentanyl assays pending.? DDimer was neg and duplex scan of his legs was negative. IMPRESSION: 1. Heroin and fentanyl OD.? No evidence of neg pressure pulmon edema, which he had last time in January. 2. Hypercarbic and hypoxemic resp failure 2? recurrent narcotization.? The pupillary exam might be the most reliable measure of narcotization that we have (as opposed to the Sat.? We?re trying to titrate the suppl oxygen and the Narcan drips as low as possible, so that we?d be able to use the Sat as a guage of his alveolar ventilation.? We turned the Narcan down to 0.1mg/hr and the oxygen down to 1L.? I don?t think there?s any need to send him for a CTPA to r/o PE. 3. Clinically has KEEGAN, with CO2 retention.? His head and neck habitus are consistent with that, altho baseline serum bicarb levels are normal. The dose of Narcan he?s requiring is extraordinary, and the length of time he?s requiring it is unusually prolonged.? The reason for this remains unclear.? And we have not been able to ascertain that he?s self-administering opiates while he?s here in the ICU. ?GCMS fentanyl and a methadone assay are pending. Time:? Critical Care Time (minutes): 0 Physical Exam Vital Signs: Vital Signs: Last Vital Signs Temp 98.3 F 04/01/21 12:00 Pulse 88 04/01/21 14:00 Resp 14 04/01/21 14:00 BP 150/85 H 04/01/21 14:00 Pulse Ox 96 04/01/21 14:00 BMI result Body Mass Index 35.5 Objective Data Labs CBC & Chem 7: 03/31/21 05:30 03/31/21 12:55 Labs: Laboratory Results - last 24 hr 03/31/21 12:55 D-Dimer High Sensitivty < 150 Quality Stroke Does the patient have a stroke diagnosis?: No VTE Prior VTE?: No VTE Risk Level:: Medical - low VTE Device Contraindication: Treatment Not Indicated VTE Drug Contraindication: Treatment Not Indicated
--- NOTE | 2021-04-01 17:21 | PC.NURSE ---
Remains in ICU. Painfree. Drowsy most of the day, sleeping in naps. Narcan drip weaned down to 0.1mg/hr. Patient up OOB to chair since breakfast. Ambulated in hallway, off monitor several times. Attempted to wean NC O2 to off but d/t patient's sleep apnea desaturation, was only able to reach 1L/min. Fair appetite today. No BM, voiding in urinal. Tolerating liquids well. Brother Twin updated on patient's status.
[2021-04-01] MEDS: Atorvastatin Calcium 80 MG TABLET PO (20:15)
[2021-04-01] MEDS: Pramipexole Di-HCL 0.25 MG TABLET PO (20:15)
[2021-04-02] VITALS (15 sets, daily range): BP systolic 104–154; BP diastolic 57–90; PULSE 65–98; RESP 10–21; TEMP 36.3–37.5; O2SAT 89–100; BMI 35.5
[2021-04-02] MEDS: lisinopriL 20 MG TABLET PO (08:01)
[2021-04-02] MEDS: hydroCHLOROthiazide 25 MG TABLET PO (08:01)
[2021-04-02] MEDS: Escitalopram Oxalate 10 MG TABLET PO (08:01)
[2021-04-02 08:26] LABS: VBG Base Excess 11.8 mmol/L; VBG HCO3 38 mmol/L (22-26); VBG pCO2 55 mmHg; VBG pH 7.44 (7.32-7.43); VBG pO2 44 mmHg
[2021-04-02] MEDS: acetaZOLAMIDE 250 MG TABLET 500 MG PO ×2 (09:50→20:07)
[2021-04-02] MEDS: modafiniL 100 MG TABLET 200 MG PO (09:51)
--- NOTE | 2021-04-02 12:41 | P.PNCC_ITS ---
Subjective Subjective Date of Service: 04/02/21 Interval History: Mr. Bartolome Tamayo was admitted to the ICU Mar 29 with resp depression after a heroin/fentanyl OD. The patient is a 50 yo M with PMHx of depression, heroin abuse, and HTN.? He had a previous OD this past January, that resulted in an episode of NPPE (negative pressure pulmon edema).? He was seen by Amanda Alvarez at that time.? And he had three ODs prior to that. The patient was brought to the emergency room by family late on Mar 28.? The patient was ambulatory.? He was somnolent but easily arousable, and alert enough to report that he used heroin and fentanyl earlier that day. ?The girlfriend reported that she?d found the patient unconscious, she started doing CPR on him, and also gave him one dose of intranasal Narcan. In the ED, VS on arrival reported a RR of 18, with Sat 96% on RA.? General physical exam was otherwise unremarkable.? Labs in the ED were notable for a BUN and creatinine of 15/1.4 (baseline creatinine about 0.8), ALT borderline elevated, troponin normal.? COVID negative.? Tox screen positive for opiates and fentanyl. While in the ED, the patient?s sat dropped to 86%.? Over the course of hours in the ED, he was given mult doses intranasal Narcan, then IV, then a drip was started at 1mg/hr, after which he was admitted to the ICU.? By evening, the patient was fully awake.? The Narcan was discontinued.? But he became somnolent again with pinpoint pupils.? The drip was restarted. Over the last three days, the patient was out of bed in the chair a good part of the day.? His pupils remain meiotic, and we were unable to get him completely off oxygen and off the Narcan drip, without him dropping his Sats as low as in the 50s (with a good pleth wave form) on Mar 31, and the 70?s over the last two days.? When he falls asleep, he visibly obstructs and has disordered breathing.? At night, we had him on BiPAP.? Last night we tried CPAP, but he required 30% FiO2 to consistently Sat in the low 90?s. We turned the Narcan off this morning.? When he?s awake, Sat is 97% on room air.? Breathing easy w RR 14-20.? Pupils 2mm, no change from yesterday.? No JVD.? Chest is CTA w normal exp phase.? No edema. VBG this morning showed 7.44/55/+11. 2-view CXR this morning is normal. In an effort to explain his wide ranging Sat?s (from 50s-90s), on Mar 31, we did an echo bubble study:? LV shows normal size and fxn.? RV top normal size, normal fxn.? RV:LV cavity ratio was normal.? TV CWD measured 2.5 cm (gradient 25mm).? IVC normal sized.? No PFO or VSD demonstrated on the bubble study. A duplex scan of his LEs was negative; DDimer was also normal.? No CTPA was warranted, IMO. Security came up and searched his belongings in the room and searched his shorts.? No contraband was found.? The patient denied using anything.? On Mar 31 I spoke with the child life assistant at the [facility] about why this patient required Narcan for 72 hours (now > 96hrs).? His major suggestion was the possibility of oral ingestion of a large quantity of opiate, and/or ingestion of a bag of opiate, or rectal packing with a bag-full of opiate.? We therefore gave the patient a dose of lactulose, two doses of Reglan, and a dose of Relistor.? He had a large volume of stool output, but no impact on his clinical status. LABORATORY DATA.? Methadone and GCMS fentanyl assays pending. IMPRESSION: 1. Heroin and fentanyl OD.? No evidence of neg pressure pulmon edema, which he had last time in January. 2. Hypercarbic and hypoxemic resp failure which appear 2? recurrent narcotization.? His pupils remain small.? It?s clear that when he?s awake, he Sats in the high 90?s on room air.? And when he falls asleep, he Sats anywhere from low 80?s to low 90s, sometimes as low as high 70s. 3. Clinically has KEEGAN, with CO2 retention.? His head and neck habitus are consistent with that, altho baseline serum bicarb levels were previously normal.? Given his BE on his VBG this morning, I wrote him for Diamox 500 mg bid.? That should be discontinued when his BE or his bicarb level approach normal.? I suggest that he has a morning VBG every morning with his routine morning labs (whether he has morning labs ordered or not).? He should also wear CPAP at night. The obvious question here is what should be done about his daytime somnolence, obstruction, and consequent hypoxemia.? Which raises the question why he is having daytime sleepiness w hypoxemia, is it just the consequence of KEEGAN, or does he have narcolepsy.? I?ve started him on Provigil, and put him in for a pulmonary consult. In regards to how to manage his daytime hypoxemia on the floor, I would suggest two things:? 1) During the day, he should be out of bed all day, in a chair and walking around.? And 2) when he?s in a chair, he can wear the NC, and when he falls asleep and desaturates, the nurse can turn the oxygen on to 1L.? When he?s away, the nurse should turn the oxygen off, but leave the NC on him. Will transfer to [facility].? Discussed with hospitalist. Critical Care Time (minutes): 0 Physical Exam Vital Signs: Vital Signs: Last Vital Signs Temp 99.5 F 04/02/21 08:00 Pulse 95 04/02/21 12:00 Resp 17 04/02/21 12:00 BP 106/61 04/02/21 12:00 Pulse Ox 97 04/02/21 12:00 BMI result Body Mass Index 35.5 Objective Data Labs CBC & Chem 7: 03/31/21 05:30 03/31/21 12:55 Labs: Laboratory Results - last 24 hr 03/31/21 04/02/21 12:55 08:18 VBG pH 7.44 H VBG pCO2 55 VBG pO2 44 VBG HCO3 38 H VBG O2 Saturation 73.0 VBG Base Excess 11.8 Phosphorus 3.0 Magnesium 2.0 Quality Stroke Does the patient have a stroke diagnosis?: No VTE Prior VTE?: No VTE Risk Level:: Medical - low VTE Device Contraindication: Treatment Not Indicated VTE Drug Contraindication: Treatment Not Indicated
[2021-04-02] MEDS: Pramipexole Di-HCL 0.25 MG TABLET PO (20:07)
[2021-04-02] MEDS: Atorvastatin Calcium 80 MG TABLET PO (20:07)
[2021-04-03] VITALS (10 sets, daily range): BP systolic 108–131; BP diastolic 55–82; PULSE 63–95; RESP 12–24; TEMP 36.2–37.1; O2SAT 91–98
[2021-04-03 05:47] LABS: Venous Blood Gas Refer to POC result
[2021-04-03 05:49] LABS: VBG Base Excess 8.7 mmol/L; VBG HCO3 37 mmol/L (22-26); VBG pCO2 66 mmHg; VBG pH 7.35 (7.32-7.43); VBG pO2 33 mmHg
[2021-04-03 06:23] LABS: Anion Gap 13 (12-20); Blood Urea Nitrogen 20 mg/dL (9-16); Calcium 10.4 mg/dL (8.4-10.2); Carbon Dioxide 31 mmol/L (22-29); Chloride 98 mmol/L (96-108); Creatinine Clr Calc Pharmacy 92.7; Estimated Glomerular Filt Rate > 60; Glucose Random 102 mg/dL (60-115); Potassium 4.7 mmol/L (3.3-5.1); Sodium 137 mmol/L (135-145)
[2021-04-03] MEDS: acetaZOLAMIDE 250 MG TABLET 500 MG PO ×2 (10:10→20:26)
[2021-04-03] MEDS: modafiniL 100 MG TABLET 200 MG PO (10:10)
[2021-04-03] MEDS: lisinopriL 20 MG TABLET PO (10:10)
[2021-04-03] MEDS: hydroCHLOROthiazide 25 MG TABLET PO (10:11)
[2021-04-03] MEDS: Escitalopram Oxalate 10 MG TABLET PO (10:11)
--- NOTE | 2021-04-03 15:09 | HO.PM.IMPN ---
Subjective Subjective Date of Service: 04/03/21 Review of Systems Follow-up overdose Feeling better walking in hallway Physical Exam Vital Signs: Vital Signs: Last Vital Signs Temp 97.4 F 04/03/21 12:00 Pulse 70 04/03/21 12:00 Resp 18 04/03/21 12:00 BP 129/68 04/03/21 12:00 Pulse Ox 94 04/03/21 12:00 BMI result Body Mass Index 35.5 Appearing in no acute distress lung sounds are clear to auscultation heart regular rate rhythm, clear S1, S2 positive bowel sounds, abdomen is soft, nontender neuro patient is alert x3, no focal deficits Objective Data Active Medications Acetazolamide (Acetazolamide 250 Mg Tablet) 500 mg PO BID [facility] Last Admin: 04/03/21 10:10 Dose: 500 mg Documented by: HILTON Atorvastatin Calcium (Atorvastatin Calcium 80 Mg Tablet) 80 mg PO BEDTIME [facility] Last Admin: 04/02/21 20:07 Dose: 80 mg Documented by: RICO Escitalopram Oxalate (Escitalopram Oxalate 10 Mg Tablet) 10 mg PO DAILY [facility] Last Admin: 04/03/21 10:11 Dose: 10 mg Documented by: HILTON Hydrochlorothiazide (Hydrochlorothiazide 25 Mg Tablet) 25 mg PO DAILY [facility] Last Admin: 04/03/21 10:11 Dose: 25 mg Documented by: HILTON Lisinopril (Lisinopril 20 Mg Tablet) 20 mg PO DAILY [facility] Last Admin: 04/03/21 10:10 Dose: 20 mg Documented by: HILTON Modafinil (Modafinil 100 Mg Tablet) 200 mg PO DAILY [facility] Last Admin: 04/03/21 10:10 Dose: 200 mg Documented by: HILTON Pharmacy Consult (Consult Rx Perform Med Rec) 1 each MISCELLANE ONCE PRN PRN Reason: Consult order Pramipexole Dihydrochloride (Pramipexole Di-Hcl 0.25 Mg Tablet) 0.25 mg PO BEDTIME [facility] Last Admin: 04/02/21 20:07 Dose: 0.25 mg Documented by: RICO Labs CBC & Chem 7: 03/31/21 05:30 04/03/21 05:37 Labs: Laboratory Results - last 24 hr 04/03/21 04/03/21 05:37 05:42 VBG pH 7.35 VBG pCO2 66 VBG pO2 33 VBG HCO3 37 H VBG O2 Saturation 43.0 VBG Base Excess 8.7 Anion Gap 13 Estim Creat Clear Calc 92.7 Estimated GFR > 60 Random Glucose 102 Calcium 10.4 H D Assessment and Plan (1) Opioid use disorder: Status: Acute (2) Overdose: Status: Acute Plan 50 year old man tx from ICU, was on narcan drip for 3 days due to heroin overdose laced with fentanyl. Apparently he was found by his significant other and she stated that she had to do CPR, but there is no physical evidence that he arrested. In the ER was initially awake aware not hypoxic cover the patient over time became hypoxic and was given multiple doses of intranasal Narcan then Narcan drip was started and patient was transferred to the ICU. It took several days for the patient to become more awake prior to him being sent to regular floor. Overdose secondary to fentanyl laced heroin Narcan drip in ICU Alert and oriented at this time Awaiting care team re-consultation prior to discharge Hypertension. Stable blood pressure. Next item continue lisinopril and hydrochlorothiazide DVT prophylaxis with early ambulation, ambulating in the hallway Attending Dr. Moctezuma Full code Quality Stroke Does the patient have a stroke diagnosis?: No VTE Prior VTE?: No VTE Risk Level:: Medical - low VTE Device Contraindication: Treatment Not Indicated VTE Drug Contraindication: Treatment Not Indicated
--- NOTE | 2021-04-03 18:48 | MHC.RECOVSUP ---
? Reason for consult Recovery Support o Current location: [facility]- o Identified substance use concern: Heroi - Support ? Intervention: o Community resources provided o Harm reduction discussion ? Plan: o Patient to follow up with [facility] after discharge ? Additional information: Met with Patient and we talk about Harm reduction and recovery... We talk about [facility] and what goes on there daily.. Resources was given
[2021-04-03] MEDS: Fluticasone Propionate 100 MCG BLST.W.DEV 2 PUFF INHALE (20:04)
[2021-04-03] MEDS: Atorvastatin Calcium 80 MG TABLET PO (20:26)
[2021-04-03] MEDS: Pramipexole Di-HCL 0.25 MG TABLET PO (20:26)
[2021-04-04 04:00] VITALS: BP 127/84; PULSE 83; RESP 18; TEMP 36.8; O2SAT 97
[2021-04-04 06:00] VITALS: BMI 32.6
[2021-04-04] MEDS: hydroCHLOROthiazide 25 MG TABLET PO (07:11)
[2021-04-04] MEDS: modafiniL 100 MG TABLET 200 MG PO (07:11)
[2021-04-04] MEDS: acetaZOLAMIDE 250 MG TABLET 500 MG PO (07:11)
[2021-04-04] MEDS: Diclofenac Sodium Delayed Rel 75 MG TABLET.DR PO (07:11)
[2021-04-04] MEDS: Escitalopram Oxalate 10 MG TABLET PO (07:11)
[2021-04-04] MEDS: lisinopriL 20 MG TABLET PO (07:11)
[2021-04-04 07:43] VITALS: BP 132/77; PULSE 87; RESP 18; TEMP 36.5; O2SAT 97
--- NOTE | 2021-04-04 07:43 | PM.DS ---
DS: Providers Provider Date of Service: 04/04/21 Date of admission: 03/29/21 11:16 Primary care physician: Unknown Physician Consults: 04/02/21 13:08 Consult to Pulmonology Routine Consulting Provider: [facility] Pulmonology Services Reason for consultation: KEEGAN with daytime hypoxemia, ? Narcolepsy Has provider been notified: No 04/03/21 11:35 Consult to Care Team Routine Comment: Reason for consultation: OD Attending physician on discharge: Rodrick Moctezuma Discharging clinician: Lynsey Tamayo DS: Diagnosis Discharge Diagnosis (1) Opioid use disorder: Status: Acute (2) Overdose: Status: Acute DS: Summary Hospital Course Hospital Course: HP as per admitting provider Mr. Bartolome Tamayo is admitted to the ICU this afternoon with resp depression after a heroin/fentanyl OD. The patient is a 50 yo M with PMHx of depression, heroin abuse, and HTN.? He?s had COVID-19.? He had a previous OD this past January, and three ODs prior to that.? Was seen by Amanda Alvarez at the January OD. The patient was brought to the emergency room by family late last night. ?The patient was ambulatory.? He was somnolent but easily arousable, and alert enough to report that he used heroin and fentanyl earlier that day. ?The girlfriend reported that she found the patient unconscious, she started doing CPR on him and also gave him one dose of intranasal Narcan. In the ED, VS on arrival reported to be RR of 18, with Sat 96% on RA.? General physical exam was otherwise unremarkable.? Labs in the ED were notable for a BUN and creatinine of 15/1.4 (baseline creatinine about 0.8), ALT borderline elevated, troponin normal.? COVID negative.? Tox screen positive for opiates and fentanyl. While in the ED, the patient has sat dropped to 86%.? He was given 4 mg intranasal Narcan x2 doses.? At 00:21, the patient's oxygen saturation dropped to 84%, was given one additional dose Narcan and put on 2 L NC oxygen and given IVF.? By 6am, he was somnolent but Sat?ing 95% and above on room air.? Was planned for d/c with home Narcan.? Given more Narcan at 0630.? More sleepy at 9am, was given IV Narcan, after which he fully woke up. At 10am more sleepy, was started on Narcan drip, 1mg/hour.? I was called and saw him in the ED at 11am.? He was sleepy and grimaced to pain.? RR was 8-10 on 2L NC, Sat 96%.? He was sitting up in bed.? The airway was clear, altho the patient is robust, 5-8?, 100kg, and has head and neck habitus suggestive of KEEGAN.? PER, about 1mm.? No JVD.? Chest is clear.? CXR was clear. IMPRESSION:? Heroin and fentanyl OD.? No evidence of neg pressure pulmon edema, which he had last time. Plan: Admit to ICU for Narcan infusion.? Monitor Sat on room air, if possible.? Taper Narcan as tolerated.? Then f/u by Medicine and Amanda Alvarez . ICU course ?1. Heroin and fentanyl OD.? No evidence of neg pressure pulmon edema ?2. Hypercarbic and hypoxemic resp failure which appear 2? recurrent narcotization.? His pupils remain small.? It?s clear that when he?s awake, he Sats in the high 90?s on room air.? And when he falls asleep, he Sats anywhere from low 80?s to low 90s, sometimes as low as high 70s. ?3. Clinically has KEEGAN, with CO2 retention.? His head and neck habitus are consistent with that, although baseline serum bicarb levels were previously normal.? Given his BE on his VBG this morning, I wrote him for Diamox 500 mg bid.? That should be discontinued when his BE or his bicarb level approach normal.? Overdose secondary to fentanyl laced heroin. Narcan drip in ICU for 3 days. Seen by care team with rec for outpatient treatment and follow up. Alert and oriented at this time. OOB walking in hallway. Time Spent with Patient Time attestation: Total time spent providing and/or coordinating discharge services: Discharge coordination time: Greater than 30 minutes Quality: Stroke Does the patient have a stroke diagnosis?: No Physical Exam Vital Signs: Vital Signs: Last Vital Signs Temp 98.2 F 04/04/21 04:00 Pulse 83 04/04/21 04:00 Resp 18 04/04/21 04:00 BP 127/84 04/04/21 04:00 Pulse Ox 97 04/04/21 04:00 BMI result Body Mass Index 32.6 Appearing in no acute distress head is normocephalic atraumatic eyes pupils are PERRLA sclera is anicteric mouth throat mucous membranes are intact and moist neck is supple no lymphadenopathy, no JVD noted lung sounds are clear to auscultation heart regular rate rhythm, clear S1, S2 positive bowel sounds, abdomen is soft, nontender neuro patient is alert x3, no focal deficits DS: Data Data Completed and Pending Completed studies during hospitalization [Text1]: Procedures Repair Scalp Skin, External Approach (01/11/21) Discharge Plan Discharge Anticipated Discharge Date/Time: 04/04/21 11:00 Patient Disposition: Home, Self-Care Discharge Diagnosis: Overdose Referrals: Physician,Unknown J [Primary Care Provider] - 1 Week Discharge Medications: Continued pramipexole 0.25 mg tablet 1 tab PO BEDTIME 0RF atorvastatin 80 mg tablet 1 tab PO BEDTIME 0RF lisinopril-hydrochlorothiazide 20-25 mg tablet 1 tab PO DAILY 0RF diclofenac sodium 75 mg tablet,delayed release (DR/EC) 1 tab PO BID 0RF Flovent HFA 110 mcg/actuation HFA aerosol inhaler 2 puff PO BID 0RF escitalopram oxalate 5 mg tablet 2 tab PO DAILY 0RF albuterol sulfate 90 mcg/actuation HFA aerosol inhaler 2 puff inhalation QID PRN (Reason: shortness of breath or wheezing) 0RF acetaminophen 500 mg tablet 1 tab PO TID PRN (Reason: FEVER/PAIN) 0RF Discharge Orders: Discharge Order (Routine); Ordered 04/04/21 Ordered By: Lynsey Tamayo Diet: advance to usual diet Activity on Discharge: As tolerated Stand Alone Forms: Patient Portal Discharge page Care Plan Goals: Do not use heroine Seek outpatient treatment and counseling Health Concerns: Overdose Plan of Treatment: Follow up with your primary care provider Assessment: See discharge summary Patient Instructions: Adult Overdose (ED)
[2021-04-04] MEDS: Fluticasone Propionate 100 MCG BLST.W.DEV 2 PUFF INHALE (08:24)
[2021-04-04 08:25] VITALS: PULSE 81; RESP 18; O2SAT 991
[2021-04-04 08:34] VITALS: PULSE 81; RESP 18; O2SAT 91
[2021-04-04 10:32] LABS: EDDP (Methadone Metabolite) negative; Methadone, Urine MS negative
[2021-04-06 08:27] LABS: Fentanyl, Ur >500.0 (H); Norfentanyl, Ur >500.0 (H)
== END 2021-04-04 10:36 | disposition home or self-care (01) | DRG 816 ==
LOC: HO.ED 03-29 10:52 → HO.EDOVER 03-29 11:34 → HO.ICU 03-29 12:35 → HO.S3 04-02 14:15
PROVIDERS: Emergency Medicine; Physician Assistant Medical; Admitting Provider Anesthesiology; Emergency Provider Emergency Medicine; PCP Internal Medicine; Visit Provider Nurse Practitioner Acute Care
DX: T40.1X1A Poisoning by heroin, accidental (unintentional), initial encounter (principal); J96.91 Respiratory failure, unspecified with hypoxia; J96.92 Respiratory failure, unspecified with hypercapnia; T40.411A Poisoning by fentanyl or fentanyl analogs, accidental (unintentional), initial encounter; F11.10 Opioid abuse, uncomplicated; I10 Essential (primary) hypertension; G47.33 Obstructive sleep apnea (adult) (pediatric); Z20.822 Contact with and (suspected) exposure to COVID-19; Z86.16 Personal history of COVID-19; Z79.899 Other long term (current) drug therapy
CPT/HCPCS: 36415; 36600; 71045; 71046; 80048; 80053; 80076; 80307; 80354; 80358; 81001; 82077; 82803; 83605; 83735; 83880; 84100; 84484; 85025; 85379; 87635; 93005; 93308; 93970; 94640; 94644; 94660; 96361; 96365; 96375; 96376; 99285; J2212; J2405; J2765

== ENCOUNTER 2021-04-17 12:07 | Outpatient (REF) | payer MEDICAID, SELFPAY ==
[2021-04-17 13:13] LABS: Alanine Aminotransferase 48 U/L (0-40); Albumin Level 4.5 g/dL (3.5-5.0); Alkaline Phosphatase 67 U/L (39-117); Anion Gap 10 (12-20); Aspartate Amino Transferase 21 U/L (5-37); Bilirubin Total 0.5 mg/dL (0.0-1.0); Blood Urea Nitrogen 13 mg/dL (9-16); Carbon Dioxide 26 mmol/L (22-29); Chloride 110 mmol/L (96-108); Cholesterol 121 mg/dL; Estimated Glomerular Filt Rate > 60; Glucose Random 83 mg/dL (60-115); HDL Cholesterol 31 mg/dL; LDL Cholesterol Calculated 67 mg/dl; Potassium 4.4 mmol/L (3.3-5.1); Sodium 142 mmol/L (135-145); Total Protein 7.4 g/dL (6.5-8.0); Triglycerides 119 mg/dL
== END 2021-04-17 12:08 | disposition home or self-care (01) ==
LOC: HO.LAB 12:07
PROVIDERS: PCP Internal Medicine; Visit Provider Internal Medicine
DX: E78.00 Pure hypercholesterolemia, unspecified (principal); I10 Essential (primary) hypertension; M47.22 Other spondylosis with radiculopathy, cervical region
CPT/HCPCS: 36415; 80053; 80061

== ENCOUNTER 2021-07-22 00:23 | Inpatient (IN) | payer MEDICAID, SELFPAY ==
[2021-07-22] VITALS (23 sets, daily range): BP systolic 102–141; BP diastolic 50–76; PULSE 75–108; RESP 17–33; TEMP 35.5–37.1; O2SAT 86–100; BMI 34.2; BMI 34.3; BMI 34.8
--- NOTE | ~2021-07-22 | CT_ITS ---
EXAMINATION: CT CHEST WITHOUT CONTRAST CLINICAL INFORMATION: Infiltrate COMPARISON: 01/11/2021 TECHNIQUE: Multidetector volumetric CT imaging of the chest was done. Axial MIP volume rendering provided. Sagittal and coronal reformatted images were obtained. This CT examination was performed using dose optimization techniques as appropriate, variously including the following: *Automated exposure control *Adjustment of mA and/or kV according to patient size (this includes techniques or standardized protocols for targeted exams where dose is matched to indication/reason for exam; i.e. extremities or head) *Use of iterative reconstruction technique DLP: 379 mGy-cm FINDINGS: LUNGS: Scattered endobronchial secretions/debris present within the medial lower lobe bronchials bilaterally, and to lesser extent middle lobe bronchioles. There is associated peribronchial opacity most coalescent groundglass affected areas, and streaky opacities likely representing postobstructive atelectatic change. Findings are significantly less pronounced, and show a different pattern and appearance on the prior exam. No pneumothorax. MEDIASTINUM: Normal heart size. No pericardial effusion. Great vessels normal caliber. No mediastinal or hilar lymphadenopathy. Thyroid gland unremarkable. PLEURA: There is no pleural effusion. No pleural mass or thickening. AXILLA: No lymphadenopathy. UPPER ABDOMEN: Severe hepatic steatosis. OSSEOUS STRUCTURES: No acute or suspicious osseous abnormalities. CT/CT chest wo con IMPRESSION: * There are scattered endobronchial secretions and peribronchial opacities within the medial lower lobes bilaterally, and to lesser extent the dependent middle lobe, suggestive of aspiration pneumonitis/bronchiolitis. * Severe hepatic steatosis.
--- NOTE | ~2021-07-22 | XR_ITS ---
EXAMINATION: XR CHEST CLINICAL INFORMATION: Chest pain COMPARISON: 04/02/2021 TECHNIQUE: Frontal view of the chest was obtained. FINDINGS: Low lung volumes and portable technique, the bronchovascular markings. No discrete consolidation. No pleural effusion or thorax. Normal heart size and pulmonary vascularity. No acute osseous abnormalities. XR/XR chest 1V IMPRESSION: No acute findings.
--- NOTE | 2021-07-22 00:35 | ECG_ITS ---
Test Reason : OVERDOSE Blood Pressure : / mmHG Vent. Rate : 095 BPM Atrial Rate : 095 BPM P-R Int : 146 ms QRS Dur : 080 ms QT Int : 394 ms P-R-T Axes : 079 051 057 degrees QTc Int : 495 ms Artifact in tracing Normal sinus rhythm Prolonged QT Abnormal ECG When compared with ECG of 28-MAR-2021 23:37, No significant changes seen Referred By: Celeste Mancini Electronically Signed By:VIVIAN KOCH
[2021-07-22] MEDS: 0.9 % Sodium Chloride 1,000 ML 999 ML IV ×3 (00:51→03:43)
[2021-07-22] MEDS: ondansetron HCL 4 MG/2 ML VIAL IVPUSH (00:51)
--- NOTE | 2021-07-22 01:01 | ED_ITS ---
HPI - General Adult General Chief complaint: ETOH/Substance Use Stated complaint: OVERDOSE Time Seen by Provider: 07/22/21 00:32 History of Present Illness HPI narrative: Patient is a 50-year-old male with a history of polysubstance abuse. Long history of using narcotics. Patient was found with a pinpoint pupil low respiration was given 8 mg Narcan by PD. Additional 4 mg of Narcan by EMS. Respiratory rate improved. Patient still lethargic. Sugar was checked it was over 200. Patient was brought in for further evaluation. Still noted to have a low oxygenation. Patient from home. Unable to ascertain from patient if he took other substances. Related Data Home Medications Medication Instructions Recorded Confirmed pramipexole 0.25 mg tablet 1 tab PO BEDTIME 01/14/21 03/29/21 acetaminophen 500 mg tablet 1 tab PO TID PRN FEVER/PAIN 03/29/21 03/29/21 albuterol sulfate 90 mcg/actuation 2 puff inhalation QID PRN 03/29/21 03/29/21 aerosol inhaler shortness of breath or wheezing atorvastatin 80 mg tablet 1 tab PO BEDTIME 03/29/21 03/29/21 diclofenac sodium 75 mg 1 tab PO BID 03/29/21 03/29/21 tablet,delayed release escitalopram oxalate 5 mg tablet 2 tab PO DAILY 03/29/21 03/29/21 fluticasone propionate 110 2 puff PO BID 03/29/21 03/29/21 mcg/actuation HFA aerosol inhaler (Flovent HFA) lisinopril 20 1 tab PO DAILY 03/29/21 03/29/21 mg-hydrochlorothiazide 25 mg tablet Allergies Allergy/AdvReac Type Severity Reaction Status Date / Time kiwi [KIWI] Allergy Unknown SWOLLEN Verified 03/28/21 23:20 LIPS Review of Systems Review of Systems: Unable to obtain review systems secondary to patient condition [facility] Past Medical History Attestation statement: The following information was validated with the patient. Medical History COVID-19 Depression Heroin abuse High cholesterol HTN (hypertension) HTN (hypertension) Intentional weight loss Opioid use disorder Sudden hearing loss Surgical History No history of previous surgery Family History Family History Father Pancreatic cancer Mother Diabetes Social History Social History Household Members: Family Housing: Apartment Do you presently have visiting nurse or other home services: No Alcohol intake: never Patient Tobacco Use Status: Never used Tobacco Substance Use Type: Heroin Advance Directives: No Advance Directives Information Provided: No service: No Current occupational status: unemployed Physical Exam ED Vital Signs: Vital Signs - 24 hr 07/22/21 00:38 07/22/21 00:54 07/22/21 01:02 Temperature 96 F L Pulse Rate 101 H 91 Respiratory Rate 33 H 30 H Blood Pressure 112/73 Pulse Oximetry 93 92 Oxygen Delivery Method Room Air Room Air Oxygen Flow Rate 07/22/21 01:33 07/22/21 01:00 07/22/21 01:01 Temperature Pulse Rate 85 Respiratory Rate 26 H Blood Pressure 104/56 L Pulse Oximetry 93 86 L 91 L Oxygen Delivery Method [place] Nasal Cannula Room Air [place] Nasal Cannula Oxygen Flow Rate 10 10 07/22/21 02:12 07/22/21 01:58 Temperature Pulse Rate 79 100 Respiratory Rate 17 28 H Blood Pressure 102/56 L 115/61 Pulse Oximetry 95 92 Oxygen Delivery Method [place] Nasal Cannula [place] Nasal Cannula Oxygen Flow Rate 10 10 BMI result Body Mass Index 34.2 Appearance: Lethargic arousable with painful stimuli Eyes: Pupils equal, round and reactive to light. ENT: Pharynx normal. Neck: Normal inspection. CVS: Normal heart rate and rhythm. Pulses normal. Normal S1 and S2 Respiratory: No respiratory distress. Rhonchi noted bilaterally no JVD note. No Wheezing. No rales Abdomen: Soft and nontender. No rigidity. No distention. good BS x4 Skin: Skin warm and dry. Normal skin color. Normal skin turgor. Extremities: No lower extremity edema. Neurovascular intact to all extremities. No Lacerations. No Rash Neuro: Arousable with painful stimuli No motor deficit. No sensory deficit. Moving all extermities. Medical Decision Making MDM Narrative Medical decision making narrative: Patient initially presented with altered mental status. Sugar was 200 no evidence of hypoglycemia. Pupils are no longer pinpoint patient actually had an increase in respiratory rate on arrival. [place] less likely this is from narcotic overdose at this point. Patient is very lethargic difficult to arouse. Requiring 10 L of oxygen to keep an O2 sat of 90%. Labs are currently pending. Patient's EKG showed a sinus pattern heart rate was 100. There is no acute ST segment elevation noted. IV fluid was started. Patient's BMP returned to be low. No evidence for congestive heart failure. Chest x-ray did not show a focal infiltrate. Question if it is early aspiration. 02:15 Patient's venous blood gas showed no CO2 retention. More likely patient has a metabolic acidosis. This was confirmed as patient's lactate came back at 8. Cultures were obtained already. 30 cc/kilos IV fluid being given. Started on Zosyn for possible aspiration pneumonia. Patient chest x-ray however did not see a focal infiltrate. Maybe slightly early. Will get a CT scan of the chest. Patient unable to produce a urine at this time. May be secondary dehydration as patient's BUN and creatinine grossly elevated. Patient is to be admitted to the intensive care unit overnight for further evaluation as he requires 10 L of oxygen to keep an O2 sat of 90%. Will continue to monitor mental status carefully. Case discussed with move coordinator. A sepsis alert was called. Will place patient in intensive care unit. Currently in guarded condition awaiting admission. Approximately 02:45 patient mental status actually is improving respiratory rate is down. O2 demand is lowered. patient is improving dramatically. ICU at [facility]. We will keep him there overnight. Currently in stable condition. Medical Records Medical records reviewed: Yes I reviewed the patient's medical records. Lab Data Lab results reviewed: Yes I reviewed the patient's lab results. Result diagrams: 07/22/21 00:48 07/22/21 00:48 Labs: Lab Results 07/22/21 07/22/21 07/22/21 Range/Units 00:48 00:48 01:04 WBC 23.1 H (4.8-10.8) X10*3/uL RBC 4.73 D (4.60-5.80) X10*6/uL Hgb 13.9 L D (14.0-18.0) g/dl Hct 42.8 D (42.0-52.0) % MCV 90.5 (80.0-98.0) fL MCH 29.4 (27.0-33.0) pg MCHC 32.5 (31.0-36.0) g/dl RDW 13.2 (11.0-16.0) % Plt Count 382 D (160-400) X10*3/uL MPV 10.0 (9.4-12.4) fL Immature Gran % (Auto) 2.9 H (0.0-0.4) % Neut % (Auto) 80.5 H (45-73) % Lymph % (Auto) 11.2 L (20-40) % [place] % (Auto) 4.1 (2-11) % Eos % (Auto) 1.0 (0-4) % Baso % (Auto) 0.3 (0-2) % Lymph # (Auto) 2.6 (1.2-4.9) X10*3/uL [place] # (Auto) 0.9 (0.1-1.2) X10*3/uL Eos # (Auto) 0.2 (0.0-0.4) X10*3/uL Baso # (Auto) 0.1 (0.0-0.2) X10*3/uL Abs Immat Gran (auto) 0.67 H (0.00-0.03) X10*3/uL Absolute Neuts (auto) 18.6 H (2.0-8.3) x10*3/uL Absolute Nucleated RBC 0.000 (0.0-0.012) X10*3/uL Nucleated RBC % (auto) 0.0 (0.0-0.2) /100WBC VBG pH (7.32-7.43) VBG pCO2 mmHg VBG pO2 mmHg VBG HCO3 (22-26) mmol/L VBG O2 Saturation % VBG Base Excess mmol/L Sodium 140 (135-145) mmol/L Potassium 5.0 (3.3-5.1) mmol/L Chloride 95 L (96-108) mmol/L Carbon Dioxide 20 L (22-29) mmol/L Anion Gap 30 H (12-20) BUN 19 H (9-16) mg/dL Creatinine 2.59 H (0.5-1.4) mg/dL Estim Creat Clear Calc 41.6 Estimated GFR 27 Random Glucose 268 H D (60-115) mg/dL Lactic Acid (0.5-2.0) mmol/L Calcium 9.8 (8.4-10.2) mg/dL Total Bilirubin 0.8 (0.0-1.0) mg/dL Direct Bilirubin 0.3 (0.0-0.5) mg/dL AST 201 H (5-37) U/L ALT 211 H (0-40) U/L Alkaline Phosphatase 89 D (39-117) U/L B-Natriuretic Peptide (<100) pg/mL Total Protein 7.9 (6.5-8.0) g/dL Albumin 4.7 (3.5-5.0) g/dL Ethyl Alcohol < 10 mg/dL 07/22/21 07/22/21 07/22/21 Range/Units 01:04 01:22 01:48 WBC (4.8-10.8) X10*3/uL RBC (4.60-5.80) X10*6/uL Hgb (14.0-18.0) g/dl Hct (42.0-52.0) % MCV (80.0-98.0) fL MCH (27.0-33.0) pg MCHC (31.0-36.0) g/dl RDW (11.0-16.0) % Plt Count (160-400) X10*3/uL MPV (9.4-12.4) fL Immature Gran % (Auto) (0.0-0.4) % Neut % (Auto) (45-73) % Lymph % (Auto) (20-40) % [place] % (Auto) (2-11) % Eos % (Auto) (0-4) % Baso % (Auto) (0-2) % Lymph # (Auto) (1.2-4.9) X10*3/uL [place] # (Auto) (0.1-1.2) X10*3/uL Eos # (Auto) (0.0-0.4) X10*3/uL Baso # (Auto) (0.0-0.2) X10*3/uL Abs Immat Gran (auto) (0.00-0.03) X10*3/uL Absolute Neuts (auto) (2.0-8.3) x10*3/uL Absolute Nucleated RBC (0.0-0.012) X10*3/uL Nucleated RBC % (auto) (0.0-0.2) /100WBC VBG pH 7.22 L (7.32-7.43) VBG pCO2 46 mmHg VBG pO2 43 mmHg VBG HCO3 19 L (22-26) mmol/L VBG O2 Saturation 60.0 % VBG Base Excess -8.1 mmol/L Sodium (135-145) mmol/L Potassium (3.3-5.1) mmol/L Chloride (96-108) mmol/L Carbon Dioxide (22-29) mmol/L Anion Gap (12-20) BUN (9-16) mg/dL Creatinine (0.5-1.4) mg/dL Estim Creat Clear Calc Estimated GFR Random Glucose (60-115) mg/dL Lactic Acid 8.2 H* (0.5-2.0) mmol/L Calcium (8.4-10.2) mg/dL Total Bilirubin (0.0-1.0) mg/dL Direct Bilirubin (0.0-0.5) mg/dL AST (5-37) U/L ALT (0-40) U/L Alkaline Phosphatase (39-117) U/L B-Natriuretic Peptide < 10 (<100) pg/mL Total Protein (6.5-8.0) g/dL Albumin (3.5-5.0) g/dL Ethyl Alcohol mg/dL Critical Care Time Critical Care Time Critical Care Time: Yes Total Critical Care Time: 40 Attestation: I have personally provided 40 minutes of critical care time exclusive of time spent on separately billable procedures. Time includes review of lab data, radiology results, discussion with consultants, and monitoring for potential decompensation. Interventions were performed as documented above Discharge Plan Discharge Clinical Impression: Aspiration pneumonia Patient Disposition: Admitted As Inpatient
[2021-07-22 01:05] LABS: MANUAL DIFF FLAG NO
[2021-07-22 01:08] LABS: Basophils Absolute Auto 0.1 X10*3/uL (0.0-0.2); Basophils Percent Auto 0.3 % (0-2); Eosinophils Absolute Auto 0.2 X10*3/uL (0.0-0.4); Hematocrit 42.8 % (42.0-52.0); Hemoglobin 13.9 g/dl (14.0-18.0); Imm Gran Abs Auto 0.67 X10*3/uL (0.00-0.03); Imm Gran Pct Auto 2.9 % (0.0-0.4); Lymphocytes Absolute Auto 2.6 X10*3/uL (1.2-4.9); Lymphocytes Percent Auto 11.2 % (20-40); Mean Corpuscular HGB Conc 32.5 g/dl (31.0-36.0); Mean Corpuscular Hemoglobin 29.4 pg (27.0-33.0); Mean Corpuscular Volume 90.5 fL (80.0-98.0); Monocytes Absolute Auto 0.9 X10*3/uL (0.1-1.2); Monocytes Percent Auto 4.1 % (2-11); Neutrophils Absolute Auto 18.6 x10*3/uL (2.0-8.3); Neutrophils Percent Auto 80.5 % (45-73); Platelet Count 382 X10*3/uL (160-400); Red Blood Count 4.73 X10*6/uL (4.60-5.80); Red Cell Distribution Width 13.2 % (11.0-16.0); White Blood Count 23.1 X10*3/uL (4.8-10.8)
[2021-07-22 01:23] LABS: Ethanol < 10 mg/dL
[2021-07-22 01:26] LABS: Alanine Aminotransferase 211 U/L (0-40); Albumin Level 4.7 g/dL (3.5-5.0); Alkaline Phosphatase 89 U/L (39-117); Anion Gap 30 (12-20); Aspartate Amino Transferase 201 U/L (5-37); Bilirubin Direct 0.3 mg/dL (0.0-0.5); Bilirubin Total 0.8 mg/dL (0.0-1.0); Blood Urea Nitrogen 19 mg/dL (9-16); Calcium 9.8 mg/dL (8.4-10.2); Carbon Dioxide 20 mmol/L (22-29); Chloride 95 mmol/L (96-108); Creatinine Clr Calc Pharmacy 41.6; Estimated Glomerular Filt Rate 27; Glucose Random 268 mg/dL (60-115); Sodium 140 mmol/L (135-145); Total Protein 7.9 g/dL (6.5-8.0)
[2021-07-22 01:31] LABS: Venous Blood Gas Refer to POC result
[2021-07-22 01:31] LABS: B Type Natriuretic Peptide < 10 pg/mL (<100)
--- NOTE | 2021-07-22 01:31 | PC.NURSE ---
Patient awake and alert, stating, I need to use the toilet . Patient assisted with urinal. VSS. Will monitor.
[2021-07-22 01:32] LABS: VBG Base Excess -8.1 mmol/L; VBG HCO3 19 mmol/L (22-26); VBG pCO2 46 mmHg; VBG pH 7.22 (7.32-7.43); VBG pO2 43 mmHg
[2021-07-22] MEDS: Piperacillin Sodium/Tazobactam 4.5 GM in 0.9 % Sodium Chloride 100 ML IV (02:08)
[2021-07-22 02:12] LABS: Lactic Acid 8.2 mmol/L (0.5-2.0)
--- NOTE | 2021-07-22 02:54 | PM.CCHP ---
History of Present Illness Date of Service: 07/22/21 Attending physician on admission: Jacob Wheeler Chief Complaint: overdose The patient is a 50 year old male with? past medical history of depression, hypertension? and? polysubstane abuse with multiple overdoses in the past.? He presented to the emergency room via EMS,? after? remember noted patient? was noted to be unconscious. According to PD he also had low respirations.? Patient was given 8 mg of Narcan by PD additional 4 mg Narcan by EMS In the emergency room patient was in respiratory distress? initially,? respiratory rate 30s,? satting 86% on room air,? temperature 96. He received an additional dose of 2mg IVPUSH narcan.? ? Laboratory data for significant for? WBC 23, ? Chloride 95, and anion gap 30, BUN 19, creatinine 2.59, lactic 8.2, ? AST 201, ALT 211. venous gas as follows? 1.//43/19. Chest XRAY- ? no acute? infection ? When I went to assess patient,? patient alert and oriented? times person and place,? forgetful? about the date,? satting? 100% on 4 L via nasal cannula. Breathing non labored, Lungs CTA. Patient did admit to doing 1 bag of heroin tonight.? ?Patient will be admitted to the ICU? acute? hypoxic respiratory failure likely opiate overdose Review of Systems Constitutional: Constitutional: Denies fatigue and Denies headache(s) Eyes: Eyes: Denies loss of vision ENT: Denies dizziness and Denies headache(s) Comments: reports ear pressure Cardiovascular: Cardiovascular: Denies chest pain and Denies dyspnea Respiratory: Respiratory: Denies cough, Denies dyspnea and Denies wheezing Gastrointestinal: Gastrointestinal: Denies diarrhea, Denies nausea and Denies vomiting Musculoskeletal: Musculoskeletal: Denies myalgias Neurologic: Denies dizziness, Denies headache(s) and Denies loss of vision Psychiatric: Comments: admits to heroin use Endocrine: Endocrine: Denies fatigue Allergic/Immunologic: Allergic/Immunologic: Denies wheezing PMFSH Past Medical History Medical History COVID-19 Depression Heroin abuse High cholesterol HTN (hypertension) HTN (hypertension) Intentional weight loss Opioid use disorder Sudden hearing loss Family History Family History Father Pancreatic cancer Mother Diabetes Surgical History Surgical History No history of previous surgery Social History Social History Household Members: Family Housing: Apartment Do you presently have visiting nurse or other home services: No Alcohol intake: never Patient Tobacco Use Status: Never used Tobacco Substance Use Type: Heroin Advance Directives: No Advance Directives Information Provided: No service: No Current occupational status: unemployed Meds Allergies Allergy/AdvReac Type Severity Reaction Status Date / Time kiwi [KIWI] Allergy Unknown SWOLLEN Verified 03/28/21 23:20 LIPS Active Medications: Current Medications Heparin Sodium (Porcine) (Heparin Sodium,Porcine 5,000 Unit/Ml Vial) 5,000 unit SUBCUT TID [facility] Sodium Chloride (Ns) 1,000 mls @ 999 mls/hr IV .Q1H1M RADHA Stop: 07/22/21 04:00 Sodium Chloride (Ns) 500 mls @ 999 mls/hr IV .Q31M RADHA Stop: 07/22/21 03:00 Ampicillin Sodium/Sulbactam (Sodium 3 gm/ Sodium Chloride) 100 mls @ 200 mls/hr IV Q8H [facility] Home Medications Medication Instructions Recorded Confirmed Last Taken Type pramipexole 0.25 mg tablet 1 tab PO BEDTIME 01/14/21 03/29/21 03/28/21 History acetaminophen 500 mg tablet 1 tab PO TID PRN FEVER/PAIN 03/29/21 03/29/21 Unknown History albuterol sulfate 90 mcg/actuation 2 puff inhalation QID PRN 03/29/21 03/29/21 Unknown History aerosol inhaler shortness of breath or wheezing atorvastatin 80 mg tablet 1 tab PO BEDTIME 03/29/21 03/29/21 03/28/21 History diclofenac sodium 75 mg 1 tab PO BID 03/29/21 03/29/21 03/28/21 History tablet,delayed release escitalopram oxalate 5 mg tablet 2 tab PO DAILY 03/29/21 03/29/21 03/28/21 History fluticasone propionate 110 2 puff PO BID 03/29/21 03/29/21 03/28/21 History mcg/actuation HFA aerosol inhaler (Flovent HFA) lisinopril 20 1 tab PO DAILY 03/29/21 03/29/21 03/28/21 History mg-hydrochlorothiazide 25 mg tablet Physical Exam Vital Signs: Vital Signs: Last Vital Signs Temp 96 F L 07/22/21 01:02 Pulse 80 07/22/21 02:32 Resp 23 H 07/22/21 02:32 BP 111/64 07/22/21 02:32 Pulse Ox 99 07/22/21 02:32 O2 Del Method 07/22/21 02:32 O2 Flow Rate 10 07/22/21 02:32 BMI result Body Mass Index 34.2 ?General:? Alert oriented x person and place, forgetful as to date, no acute distress.? Speaking full sentences.? Speech is well articulated, Following all commands. ?HEENT:? Head is normocephalic, atraumatic, pupils equal round reactive to light accommodation bilaterally.? Extraocular movements appear intact.? Buccal mucosa is dry, Neck is supple without lymphadenopathy. ?Cardiac:? Clear S1-S2, no murmurs rubs or gallops. ?Pulmonary:? Clear to auscultation, no wheezes, rales or rhonchi. ?Abdomen:? Protuberant, positive bowel sounds in all 4 quadrants.? Soft, nontender, no rebound or guarding.?? ?Musculoskeletal:? Moving all 4 extremities upon request a major joints, there is no crepitus or tenderness.? The strength is 5/5 bilaterally and throughout all 4 extremities.? Gait not assessed at this point. ?Neurologic:? cranial nerves 2-12 are grossly intact.? No focal deficits noted.Motor strength as above.?? Vascular:? 2+ pulses upper and lower extremities distally.? Results Labs CBC and Chem 7: 07/22/21 00:48 07/22/21 00:48 Labs: Laboratory Results - last 24 hr 07/22/21 07/22/21 07/22/21 00:48 00:48 01:04 MCV 90.5 MCH 29.4 MCHC 32.5 RDW 13.2 Plt Count 382 D MPV 10.0 Immature Gran % (Auto) 2.9 H Neut % (Auto) 80.5 H Lymph % (Auto) 11.2 L [place] % (Auto) 4.1 Eos % (Auto) 1.0 Baso % (Auto) 0.3 Lymph # (Auto) 2.6 [place] # (Auto) 0.9 Eos # (Auto) 0.2 Baso # (Auto) 0.1 Abs Immat Gran (auto) 0.67 H Absolute Neuts (auto) 18.6 H Absolute Nucleated RBC 0.000 Nucleated RBC % (auto) 0.0 VBG pH VBG pCO2 VBG pO2 VBG HCO3 VBG O2 Saturation VBG Base Excess Anion Gap 30 H Estim Creat Clear Calc 41.6 Estimated GFR 27 Random Glucose 268 H D Lactic Acid Calcium 9.8 Total Bilirubin 0.8 Direct Bilirubin 0.3 AST 201 H ALT 211 H Alkaline Phosphatase 89 D B-Natriuretic Peptide Total Protein 7.9 Albumin 4.7 Ethyl Alcohol < 10 07/22/21 07/22/21 07/22/21 01:04 01:22 01:48 MCV MCH MCHC RDW Plt Count MPV Immature Gran % (Auto) Neut % (Auto) Lymph % (Auto) [place] % (Auto) Eos % (Auto) Baso % (Auto) Lymph # (Auto) [place] # (Auto) Eos # (Auto) Baso # (Auto) Abs Immat Gran (auto) Absolute Neuts (auto) Absolute Nucleated RBC Nucleated RBC % (auto) VBG pH 7.22 L VBG pCO2 46 VBG pO2 43 VBG HCO3 19 L VBG O2 Saturation 60.0 VBG Base Excess -8.1 Anion Gap Estim Creat Clear Calc Estimated GFR Random Glucose Lactic Acid 8.2 H* Calcium Total Bilirubin Direct Bilirubin AST ALT Alkaline Phosphatase B-Natriuretic Peptide < 10 Total Protein Albumin Ethyl Alcohol Imaging Radiologist's Impressions: Impressions Chest X-Ray 07/22/21 01:15 IMPRESSION: No acute findings. Assessment and Plan (1) Acute respiratory failure with hypoxia: Status: Acute (2) Aspiration into airway: Status: Acute (3) Drug overdose: Status: Inactive (4) Toxic encephalopathy: Status: Acute (5) HTN (hypertension): Status: Acute (6) ARABELLA (acute kidney injury): Status: Acute (7) Leukocytosis: Status: Acute Plan 50-year-old male with a past medical history of polysubstance abuse multiple admissions for overdose admitted into ICU for acute hypoxic respiratory failure likely from a heroin overdose Neuro:? ?Toxic encephalopathy- ? patient has a history of polysubstance abuse,? last U tox in 03/29/21? positive for? opiates and fentanyl.? Patient also admits to using street heroin before coming to hospital.? Patient mentation has improved since arrival to hosp. Will order a urine toxicology.? ?? Cardiac:? ?Elevated? lactic:? no signs of severe? Sepsis? at this time,? elevated lactic likely related to respiratory depression? from the overdose.? Pulmonary: ?Acute hypoxic respiratory? failure:? patient did admit to using street heroin before? family member called EMS.? this is likely due to opiate overdose. ? He is satting 100% on 4 L via nasal cannula. ? He does have a high risk of aspiration,? will cover with Unasyn.? Will also obtain? chest CT.? Renal:? ARABELLA -? nonoliguric, most likely fluid deficiency related. ? Receive? fluids in the ED. Will continue to monitor? renal indices.? Endo:? no acute issues??? GI: ? No acute issues ID:? ? leukocytosis:? likely from the aspiration event? from OD. no evidence of severe sepsis. Will cover with unasyn. Cultures pending.? Heme/Onc:? No acute issues. Psych:? No acute issues. Miscellaneous:? No acute issues. Prophylaxis:? subcu heparin? Code status: Full code? Case discussed with Attending Dr Wheeler? Critical Care Time Critical Care Time (minutes): 60
[2021-07-22 03:05] LABS: Glucose, Whole Blood 240 mg/dL (60-115)
[2021-07-22] MEDS: 0.9 % Sodium Chloride 500 ML 999 ML IV (03:18)
[2021-07-22 03:50] LABS: Amphetamine Screen Urine Not Detected (Not Detect); Barbiturates, Urine Not Detected (Not Detect); Benzodiazepines Screen Urine Not Detected (Not Detect); Cannabinoid Screen Urine Not Detected (Not Detect); Cocaine Screen Urine Not Detected (Not Detect); Fentanyl, urine POSITIVE (Not Detect); Opiate Screen Urine POSITIVE (Not Detect); Phencyclidine Screen Urine Not Detected (Not Detect)
[2021-07-22 03:53] LABS: Reflex Lactate? Lactic Acid Added
[2021-07-22 04:11] LABS: ~Lactic Acid-LAB USE ONLY 7.6 mmol/L (0.5-2.0)
[2021-07-22 04:48] LABS: COVID-19 Test Negative (Negative)
[2021-07-22 05:37] LABS: MANUAL DIFF FLAG NO
[2021-07-22 05:42] LABS: VBG Base Excess -4.7 mmol/L; VBG HCO3 23 mmol/L (22-26); VBG pCO2 53 mmHg; VBG pH 7.24 (7.32-7.43); VBG pO2 35 mmHg
[2021-07-22 05:44] LABS: Venous Blood Gas Refer to POC result
[2021-07-22 05:47] LABS: Basophils Percent Auto 0.2 % (0-2); Eosinophils Percent Auto 0.1 % (0-4); Hemoglobin 13.7 g/dl (14.0-18.0); Imm Gran Pct Auto 1.4 % (0.0-0.4); Lymphocytes Absolute Auto 0.5 X10*3/uL (1.2-4.9); Lymphocytes Percent Auto 3.4 % (20-40); Mean Corpuscular HGB Conc 33.4 g/dl (31.0-36.0); Mean Corpuscular Hemoglobin 29.9 pg (27.0-33.0); Mean Corpuscular Volume 89.5 fL (80.0-98.0); Monocytes Absolute Auto 0.9 X10*3/uL (0.1-1.2); Monocytes Percent Auto 6.4 % (2-11); Neutrophils Absolute Auto 13.1 x10*3/uL (2.0-8.3); Neutrophils Percent Auto 88.5 % (45-73); Platelet Count 282 X10*3/uL (160-400); Red Blood Count 4.58 X10*6/uL (4.60-5.80); Red Cell Distribution Width 13.2 % (11.0-16.0); White Blood Count 14.8 X10*3/uL (4.8-10.8)
[2021-07-22 05:55] LABS: Reflex Lactate? 2 Y
[2021-07-22 06:00] LABS: Alanine Aminotransferase 220 U/L (0-40); Albumin Level 4.3 g/dL (3.5-5.0); Alkaline Phosphatase 74 U/L (39-117); Anion Gap 16 (12-20); Aspartate Amino Transferase 175 U/L (5-37); Bilirubin Total 0.5 mg/dL (0.0-1.0); Blood Urea Nitrogen 22 mg/dL (9-16); Calcium 8.5 mg/dL (8.4-10.2); Carbon Dioxide 22 mmol/L (22-29); Chloride 106 mmol/L (96-108); Creatinine Clr Calc Pharmacy 61.9; Estimated Glomerular Filt Rate 42; Glucose Random 93 mg/dL (60-115); Magnesium 2.1 mg/dL (1.6-2.6); Phosphorus 3.7 mg/dL (2.7-4.5); Potassium 4.1 mmol/L (3.3-5.1); Sodium 140 mmol/L (135-145); Total Protein 7.3 g/dL (6.5-8.0)
[2021-07-22 06:46] LABS: ~Lactic Acid-LAB USE ONLY 3.5 mmol/L (0.5-2.0)
--- NOTE | 2021-07-22 08:08 | PHA.MEDREC ---
Pharmacy Consult ? Medication Reconciliation Pharmacy has completed the medication reconciliation.
[2021-07-22] MEDS: Heparin Sodium,Porcine 5,000 UNIT/ML VIAL 5000 UNIT SUBCUT ×3 (08:28→20:31)
[2021-07-22] MEDS: Ampicillin Sodium/Sulbactam Na 3 GM in 0.9 % Sodium Chloride 100 ML IV ×3 (08:28→20:30)
--- NOTE | 2021-07-22 09:57 | MHC.CM.PN ---
MALE 50 DX HYPOXIC RESPIRATORY FAILURE R/T OPIATE USE LIVES WITH S.O. HE IS INDEPENDENT WITH ALL FUNCTIONAL MOBILITY. CARE TEAM CONSULT ORDERED. NEW HCP ON FILE. DP HOME WITH RESOURCES PROVIDED BY THE RECOVERY TEAM. PATIENT WILL ARRANGE FOR TRANSPORTATION HOME. PATIENT WILL TRANSFER FROM ICU TO IMC TODAY.
--- NOTE | 2021-07-22 10:29 | PC.NURSE ---
Pt able to ambulate with standby assist, no c/o, steady gait. Pt did desat down to 89% off O2. 2L n/c was placed back on pt w/ + effect. safety and fall precautions in place. call vargas within reach. pt to be xfer'ed to [facility] when bed is available
[2021-07-23] VITALS: BP 117/61; PULSE 78; RESP 18; TEMP 36.6; O2SAT 96
[2021-07-23] MEDS: Ampicillin Sodium/Sulbactam Na 3 GM in 0.9 % Sodium Chloride 100 ML IV ×2 (01:46→08:03)
[2021-07-23 04:00] VITALS: BP 116/55; PULSE 75; RESP 18; TEMP 36.5; O2SAT 99
[2021-07-23 06:48] LABS: MANUAL DIFF FLAG NO
[2021-07-23 06:50] LABS: Basophils Percent Auto 0.2 % (0-2); Eosinophils Absolute Auto 0.4 X10*3/uL (0.0-0.4); Eosinophils Percent Auto 5.5 % (0-4); Hematocrit 33.8 % (42.0-52.0); Hemoglobin 11.3 g/dl (14.0-18.0); Imm Gran Abs Auto 0.03 X10*3/uL (0.00-0.03); Imm Gran Pct Auto 0.4 % (0.0-0.4); Lymphocytes Absolute Auto 1.7 X10*3/uL (1.2-4.9); Lymphocytes Percent Auto 21.6 % (20-40); Mean Corpuscular HGB Conc 33.4 g/dl (31.0-36.0); Mean Corpuscular Hemoglobin 29.4 pg (27.0-33.0); Mean Platelet Volume 9.6 fL (9.4-12.4); Monocytes Absolute Auto 0.7 X10*3/uL (0.1-1.2); Monocytes Percent Auto 8.7 % (2-11); Neutrophils Absolute Auto 5.1 x10*3/uL (2.0-8.3); Neutrophils Percent Auto 63.6 % (45-73); Platelet Count 238 X10*3/uL (160-400); Red Blood Count 3.84 X10*6/uL (4.60-5.80); Red Cell Distribution Width 13.3 % (11.0-16.0)
[2021-07-23 06:51] LABS: Venous Blood Gas Refer to POC result
[2021-07-23 07:32] LABS: Albumin Level 3.6 g/dL (3.5-5.0); Blood Urea Nitrogen 13 mg/dL (9-16); Calcium 8.9 mg/dL (8.4-10.2); Creatinine Clr Calc Pharmacy 129.5; Estimated Glomerular Filt Rate > 60; Glucose Random 99 mg/dL (60-115); Magnesium 2.1 mg/dL (1.6-2.6)
[2021-07-23 07:43] LABS: Anion Gap 9 (12-20); Carbon Dioxide 30 mmol/L (22-29); Chloride 104 mmol/L (96-108); Phosphorus 2.4 mg/dL (2.7-4.5); Potassium 4.1 mmol/L (3.3-5.1); Sodium 139 mmol/L (135-145)
[2021-07-23 08:00] VITALS: BP 131/73; PULSE 78; RESP 18; TEMP 37.3; O2SAT 96
[2021-07-23] MEDS: Heparin Sodium,Porcine 5,000 UNIT/ML VIAL 5000 UNIT SUBCUT (08:03)
[2021-07-23 08:54] LABS: VBG Base Excess -0.5 mmol/L; VBG HCO3 23 mmol/L (22-26); VBG pCO2 33 mmHg; VBG pH 7.44 (7.32-7.43); VBG pO2 49 mmHg
--- NOTE | 2021-07-23 08:56 | PM.DS ---
DS: Providers Provider Date of Service: 07/23/21 Date of admission: 07/22/21 02:24 Primary care physician: Esther Greer MD Consults: 07/22/21 09:48 Consult to Care Team Routine Comment: Reason for consultation: OPIATE USE Has provider been notified: Yes 07/23/21 08:49 Consult to Care Team Routine Comment: Reason for consultation: Substance abuse and overdose DS: Diagnosis Discharge Diagnosis (1) Acute respiratory failure with hypoxia: Status: Resolved (2) Aspiration into airway: Status: Resolved (3) Drug overdose: Status: Inactive (4) Toxic encephalopathy: Status: Resolved (5) HTN (hypertension): (6) ARABELLA (acute kidney injury): Status: Resolved (7) Leukocytosis: Status: Resolved DS: Summary Hospital Course Hospital Course: ICU HPI by Dr. Wheeler Chief Complaint:? overdose The patient is a 50 year old male with? past medical history of depression, hypertension? and? polysubstane abuse with multiple overdoses in the past.? He presented to the emergency room via EMS,? after? remember noted patient? was noted to be unconscious. According to PD he also had low respirations.? Patient was given 8 mg of Narcan by PD additional 4 mg Narcan by EMS In the emergency room patient was in respiratory distress? initially,? respiratory rate 30s,? satting 86% on room air,? temperature 96. He received an additional dose of 2mg IVPUSH narcan.? ? Laboratory data for significant for? WBC 23, ? Chloride 95, and anion gap 30, BUN 19, creatinine 2.59, lactic 8.2, ? AST 201, ALT 211. venous gas as follows? 1./46/43/19. Chest XRAY- ? no acute? infection ? When I went to assess patient,? patient alert and oriented? times person and place,? forgetful? about the date,? satting? 100% on 4 L via nasal cannula. Breathing non labored, Lungs CTA. Patient did admit to doing 1 bag of heroin tonight.? ?Patient will be admitted to the ICU? acute? hypoxic respiratory failure likely opiate overdose. Hospital course:He was briefly admitted to ICU due to acute hypoxic respiratory failure due to opioid overdose, also causing transient encephalopathy.. Record review show that he has had this multiple time in the past, last hospitalization being [facility] for identical circumstance # Acute hypoxic respiratory failure d/t overdose and aspiration this has resolved #metabolic encephalopathy d/t overdose and hypoxia--completly resolved at baseline alert, oriented to self, place and time and aware of circustances that led him here #. Aspiration pneumonia--treated in the ICU with Unasyn, WBC has normalized presently at 8, no fever on respiratory distress, breathing comfortably at 14, and O2 saturation, 96 to 99% on room air # ARABELLA d/t pre renal azotemia--resolved with IVF, Creatine has come down to 0.84 from 2.59 day earlier #Substance abuse/Opioid overdose--CARE/recovery have evaluated him and offer him resources and will discharge with Narcan, I spoke to him about the danger of of substance use Time Spent with Patient Time attestation: Total time spent providing and/or coordinating discharge services: Discharge coordination time: Greater than 30 minutes Quality: Safe Use of Opioids Does Pt have an Active Cancer Diagnosis on the Problem List?: No Quality: Stroke Does the patient have a stroke diagnosis?: No Physical Exam Vital Signs: Vital Signs: Last Vital Signs Temp 99.1 F 07/23/21 08:00 Pulse 78 07/23/21 08:00 Resp 18 07/23/21 08:00 BP 131/73 07/23/21 08:00 Pulse Ox 96 07/23/21 08:00 O2 Del Method 07/23/21 08:00 O2 Flow Rate 2 07/23/21 00:00 BMI result Body Mass Index 34.8 Const: Other: General: AO X 3, no acute distress Resp: CTA bilateral CVS: S1,S2,RRR GI: +BS, NT, no distention Skin: No rash Neuro: motor grossly intact Psych: appropriate affect DS: Data Data Completed and Pending Completed studies during hospitalization [Text1]: Procedures Repair Scalp Skin, External Approach (01/11/21) Labs on day of discharge: Laboratory Results - last 24 hr 07/23/21 07/23/21 07/23/21 06:40 06:40 06:48 WBC 8.0 RBC 3.84 L Hgb 11.3 L Hct 33.8 L MCV 88.0 MCH 29.4 MCHC 33.4 RDW 13.3 Plt Count 238 MPV 9.6 Immature Gran % (Auto) 0.4 Neut % (Auto) 63.6 Lymph % (Auto) 21.6 [place] % (Auto) 8.7 Eos % (Auto) 5.5 H Baso % (Auto) 0.2 Lymph # (Auto) 1.7 [place] # (Auto) 0.7 Eos # (Auto) 0.4 Baso # (Auto) 0.0 Abs Immat Gran (auto) 0.03 Absolute Neuts (auto) 5.1 Absolute Nucleated RBC 0.000 Nucleated RBC % (auto) 0.0 VBG pH 7.44 H VBG pCO2 33 VBG pO2 49 VBG HCO3 23 VBG O2 Saturation 80.0 VBG Base Excess -0.5 Sodium 139 Potassium 4.1 Chloride 104 Carbon Dioxide 30 H Anion Gap 9 L BUN 13 Creatinine 0.84 Estim Creat Clear Calc 129.5 Estimated GFR > 60 Random Glucose 99 Calcium 8.9 Phosphorus 2.4 L Magnesium 2.1 Albumin 3.6 Preliminary micro results at discharge 07/22/21 01:48 Blood Culture - Preliminary Blood - Venous No growth after 24 hours. 07/22/21 01:48 Blood Culture - Preliminary Blood - Venous No growth after 24 hours. Discharge Plan Discharge Anticipated Discharge Date/Time: 07/23/21 08:38 Patient Disposition: Home, Self-Care Discharge Diagnosis: Drug overdose, aspiration Referrals: Esther Greer MD [Primary Care Provider] - 1 Week Discharge Medications: New amoxicillin-pot clavulanate 875-125 mg tablet 1 tab PO BID Qty: 14 0RF Continued pramipexole 0.25 mg tablet 1 tab PO BEDTIME atorvastatin 80 mg tablet 1 tab PO BEDTIME lisinopril-hydrochlorothiazide 20-25 mg tablet 1 tab PO DAILY fluticasone propionate [Flovent HFA] 110 mcg/actuation HFA aerosol inhaler 2 puff PO BID escitalopram oxalate 5 mg tablet 2 tab PO DAILY albuterol sulfate 90 mcg/actuation HFA aerosol inhaler 2 puff inhalation QID PRN (Reason: shortness of breath or wheezing) Discharge Orders: Discharge Order (Routine); Ordered 07/23/21 Ordered By: Paco Miranda Activity on Discharge: As tolerated Stand Alone Forms: Patient Portal Discharge page Care Plan Goals: resolution of pneumonia, abstinence from substance abuse Health Concerns: Substance abuse, aspiration pneumonia Plan of Treatment: Take Augmntin for pneumonia and avoid ilicit substances and follow up with your doctor in a week Assessment: As above Discharge Date/Time: 07/23/21 11:52
--- NOTE | 2021-07-23 09:56 | MHC.RECOVSUP ---
Recovery Support note: Patient is a 50 year old Slovak speaking male who presented to [facility] after an accidental overdose. This automobile service writer met with patient on 07/22 to discuss substance use and recovery supports. Patient reports he does not use heroin often and that he only uses occasionally when he is depressed. Patient reports he has never been on methadone or Suboxone, stating I've never used like that. Patient reports he has experienced restless legs related to withdrawal but that it goes away after a few days. Patient states he thought he bought cocaine. Education regarding fentanyl and the risk of overdose and was provided. Patient acknowledges and reports no questions at this time. Discussed harm reduction and information on [employer] was provided. Encouraged patient to test any substance for fentanyl prior to use. Discussed healthy coping skills with patient and treatment for depression. Patient reports his PCP prescribed him an antidepressant in the past however he stopped taking it. Patient had a therapist in [place] however no longer does. Patient is interested in a referral to [facility] which this automobile service writer will complete.
[2021-07-23] MEDS: Naloxone HCl Nasal TAKE HOME 4 MG SPRAY NOSTRILALT (11:46)
--- NOTE | 2021-07-23 12:14 | MHC.CM.PN ---
PT DISCHARGED HOME TODAY WITH REFERRAL/EDUCATION PROVIDED BY MANAGER MEDICAID PT SELF ARRANGED TRANSPORTATION
--- NOTE | 2021-07-23 17:52 | P.PNADD_ITS ---
Subjective Subjective Date of Service: 07/23/21 Reason For Visit: Acute hypoxic respiratory failure Interim History: Patient is a 50 year old male known to this remote mortgage underwriter via previous admissions for opioid overdose. Currently medically admitted for the same reason. Seen by Recovery Support (please see that note). Briefly seen by this remote mortgage underwriter as patient unwilling to engage in interview. No withdrawal sx noted, and none reported. This remote mortgage underwriter reinforced overdose prevention with patient including using small amounts, having narcan around for family, testing drugs (if possible). Review of Systems Constitutional: Reports as per HPI and Reports no additional constitutional complaints Mental Status Exam Mental Status Exam Patient Appearance: Well Grooomed and Appropriate Level of Consciousness: Awake and Alert Patient Behavior: Guarded Diagnostics Vital Signs (24Hr): Vital Signs - 24 hr 07/22/21 20:00 07/23/21 00:00 07/23/21 04:00 Temperature 98.8 F 98 F 97.7 F Pulse Rate 79 78 75 Respiratory Rate 18 18 18 Blood Pressure 129/60 117/61 116/55 L Pulse Oximetry 100 96 99 Oxygen Delivery Method Nasal Cannula Nasal Cannula Room Air Oxygen Flow Rate 2 2 07/23/21 08:00 Temperature 99.1 F Pulse Rate 78 Respiratory Rate 18 Blood Pressure 131/73 Pulse Oximetry 96 Oxygen Delivery Method Room Air Oxygen Flow Rate BMI result Body Mass Index 34.8 Labs Results: 07/23/21 06:40 07/23/21 06:40 Labs: Laboratory Results - last 48 hr 07/22/21 07/22/21 07/22/21 00:38 00:48 00:48 WBC 23.1 H RBC 4.73 D Hgb 13.9 L D Hct 42.8 D MCV 90.5 MCH 29.4 MCHC 32.5 RDW 13.2 Plt Count 382 D MPV 10.0 Immature Gran % (Auto) 2.9 H Neut % (Auto) 80.5 H Lymph % (Auto) 11.2 L [place] % (Auto) 4.1 Eos % (Auto) 1.0 Baso % (Auto) 0.3 Lymph # (Auto) 2.6 [place] # (Auto) 0.9 Eos # (Auto) 0.2 Baso # (Auto) 0.1 Abs Immat Gran (auto) 0.67 H Absolute Neuts (auto) 18.6 H Absolute Nucleated RBC 0.000 Nucleated RBC % (auto) 0.0 VBG pH VBG pCO2 VBG pO2 VBG HCO3 VBG O2 Saturation VBG Base Excess Sodium 140 Potassium 5.0 Chloride 95 L Carbon Dioxide 20 L Anion Gap 30 H BUN 19 H Creatinine 2.59 H Estim Creat Clear Calc 41.6 Estimated GFR 27 POC Glucose 240 H Random Glucose 268 H D Lactic Acid Lactic Acid F/U @ 2Hr Lactic Acid F/U @ 4Hr Calcium 9.8 Phosphorus Magnesium Total Bilirubin 0.8 Direct Bilirubin 0.3 AST 201 H ALT 211 H Alkaline Phosphatase 89 D B-Natriuretic Peptide Total Protein 7.9 Albumin 4.7 Urine Opiates Screen Urine Fentanyl Screen Ur Barbiturates Screen Ur Phencyclidine Scrn Ur Amphetamines Screen U Benzodiazepines Scrn Urine Cocaine Screen U Marijuana (THC) Screen Ethyl Alcohol COVID-19 (ELBA) COVID-19 [facility] 07/22/21 07/22/21 07/22/21 01:04 01:04 01:22 WBC RBC Hgb Hct MCV MCH MCHC RDW Plt Count MPV Immature Gran % (Auto) Neut % (Auto) Lymph % (Auto) [place] % (Auto) Eos % (Auto) Baso % (Auto) Lymph # (Auto) [place] # (Auto) Eos # (Auto) Baso # (Auto) Abs Immat Gran (auto) Absolute Neuts (auto) Absolute Nucleated RBC Nucleated RBC % (auto) VBG pH 7.22 L VBG pCO2 46 VBG pO2 43 VBG HCO3 19 L VBG O2 Saturation 60.0 VBG Base Excess -8.1 Sodium Potassium Chloride Carbon Dioxide Anion Gap BUN Creatinine Estim Creat Clear Calc Estimated GFR POC Glucose Random Glucose Lactic Acid Lactic Acid F/U @ 2Hr Lactic Acid F/U @ 4Hr Calcium Phosphorus Magnesium Total Bilirubin Direct Bilirubin AST ALT Alkaline Phosphatase B-Natriuretic Peptide < 10 Total Protein Albumin Urine Opiates Screen Urine Fentanyl Screen Ur Barbiturates Screen Ur Phencyclidine Scrn Ur Amphetamines Screen U Benzodiazepines Scrn Urine Cocaine Screen U Marijuana (THC) Screen Ethyl Alcohol < 10 COVID-19 (ELBA) COVID-19 [facility] 07/22/21 07/22/21 07/22/21 01:48 03:26 03:52 WBC RBC Hgb Hct MCV MCH MCHC RDW Plt Count MPV Immature Gran % (Auto) Neut % (Auto) Lymph % (Auto) [place] % (Auto) Eos % (Auto) Baso % (Auto) Lymph # (Auto) [place] # (Auto) Eos # (Auto) Baso # (Auto) Abs Immat Gran (auto) Absolute Neuts (auto) Absolute Nucleated RBC Nucleated RBC % (auto) VBG pH VBG pCO2 VBG pO2 VBG HCO3 VBG O2 Saturation VBG Base Excess Sodium Potassium Chloride Carbon Dioxide Anion Gap BUN Creatinine Estim Creat Clear Calc Estimated GFR POC Glucose Random Glucose Lactic Acid 8.2 H* Lactic Acid F/U @ 2Hr 7.6 H* Lactic Acid F/U @ 4Hr Calcium Phosphorus Magnesium Total Bilirubin Direct Bilirubin AST ALT Alkaline Phosphatase B-Natriuretic Peptide Total Protein Albumin Urine Opiates Screen POSITIVE H Urine Fentanyl Screen POSITIVE H Ur Barbiturates Screen Not Detected Ur Phencyclidine Scrn Not Detected Ur Amphetamines Screen Not Detected U Benzodiazepines Scrn Not Detected Urine Cocaine Screen Not Detected U Marijuana (THC) Screen Not Detected Ethyl Alcohol COVID-19 (ELBA) COVID-19 [facility] 07/22/21 07/22/21 07/22/21 04:27 05:31 05:31 WBC 14.8 H RBC 4.58 L Hgb 13.7 L Hct 41.0 L MCV 89.5 MCH 29.9 MCHC 33.4 RDW 13.2 Plt Count 282 D MPV 10.0 Immature Gran % (Auto) 1.4 H Neut % (Auto) 88.5 H Lymph % (Auto) 3.4 L [place] % (Auto) 6.4 Eos % (Auto) 0.1 Baso % (Auto) 0.2 Lymph # (Auto) 0.5 L [place] # (Auto) 0.9 Eos # (Auto) 0.0 Baso # (Auto) 0.0 Abs Immat Gran (auto) 0.20 H Absolute Neuts (auto) 13.1 H Absolute Nucleated RBC 0.000 Nucleated RBC % (auto) 0.0 VBG pH VBG pCO2 VBG pO2 VBG HCO3 VBG O2 Saturation VBG Base Excess Sodium 140 Potassium 4.1 Chloride 106 Carbon Dioxide 22 Anion Gap 16 BUN 22 H Creatinine 1.74 H Estim Creat Clear Calc 61.9 Estimated GFR 42 POC Glucose Random Glucose 93 D Lactic Acid Lactic Acid F/U @ 2Hr Lactic Acid F/U @ 4Hr Calcium 8.5 D Phosphorus 3.7 Magnesium 2.1 Total Bilirubin 0.5 Direct Bilirubin AST 175 H ALT 220 H Alkaline Phosphatase 74 B-Natriuretic Peptide Total Protein 7.3 Albumin 4.3 Urine Opiates Screen Urine Fentanyl Screen Ur Barbiturates Screen Ur Phencyclidine Scrn Ur Amphetamines Screen U Benzodiazepines Scrn Urine Cocaine Screen U Marijuana (THC) Screen Ethyl Alcohol COVID-19 (ELBA) Negative [facility] [facility] See Note 07/22/21 07/22/21 07/23/21 05:34 06:20 06:40 WBC 8.0 RBC 3.84 L Hgb 11.3 L Hct 33.8 L MCV 88.0 MCH 29.4 MCHC 33.4 RDW 13.3 Plt Count 238 MPV 9.6 Immature Gran % (Auto) 0.4 Neut % (Auto) 63.6 Lymph % (Auto) 21.6 [place] % (Auto) 8.7 Eos % (Auto) 5.5 H Baso % (Auto) 0.2 Lymph # (Auto) 1.7 [place] # (Auto) 0.7 Eos # (Auto) 0.4 Baso # (Auto) 0.0 Abs Immat Gran (auto) 0.03 Absolute Neuts (auto) 5.1 Absolute Nucleated RBC 0.000 Nucleated RBC % (auto) 0.0 VBG pH 7.24 L VBG pCO2 53 VBG pO2 35 VBG HCO3 23 VBG O2 Saturation 48.0 VBG Base Excess -4.7 Sodium Potassium Chloride Carbon Dioxide Anion Gap BUN Creatinine Estim Creat Clear Calc Estimated GFR POC Glucose Random Glucose Lactic Acid Lactic Acid F/U @ 2Hr Lactic Acid F/U @ 4Hr 3.5 H* Calcium Phosphorus Magnesium Total Bilirubin Direct Bilirubin AST ALT Alkaline Phosphatase B-Natriuretic Peptide Total Protein Albumin Urine Opiates Screen Urine Fentanyl Screen Ur Barbiturates Screen Ur Phencyclidine Scrn Ur Amphetamines Screen U Benzodiazepines Scrn Urine Cocaine Screen U Marijuana (THC) Screen Ethyl Alcohol COVID-19 (ELBA) [facility]-[employer] 07/23/21 07/23/21 06:40 06:48 WBC RBC Hgb Hct MCV MCH MCHC RDW Plt Count MPV Immature Gran % (Auto) Neut % (Auto) Lymph % (Auto) [place] % (Auto) Eos % (Auto) Baso % (Auto) Lymph # (Auto) [place] # (Auto) Eos # (Auto) Baso # (Auto) Abs Immat Gran (auto) Absolute Neuts (auto) Absolute Nucleated RBC Nucleated RBC % (auto) VBG pH 7.44 H VBG pCO2 33 VBG pO2 49 VBG HCO3 23 VBG O2 Saturation 80.0 VBG Base Excess -0.5 Sodium 139 Potassium 4.1 Chloride 104 Carbon Dioxide 30 H Anion Gap 9 L BUN 13 Creatinine 0.84 Estim Creat Clear Calc 129.5 Estimated GFR > 60 POC Glucose Random Glucose 99 Lactic Acid Lactic Acid F/U @ 2Hr Lactic Acid F/U @ 4Hr Calcium 8.9 Phosphorus 2.4 L Magnesium 2.1 Total Bilirubin Direct Bilirubin AST ALT Alkaline Phosphatase B-Natriuretic Peptide Total Protein Albumin 3.6 Urine Opiates Screen Urine Fentanyl Screen Ur Barbiturates Screen Ur Phencyclidine Scrn Ur Amphetamines Screen U Benzodiazepines Scrn Urine Cocaine Screen U Marijuana (THC) Screen Ethyl Alcohol COVID-19 (ELBA) COVID-19 Clin Com Imaging Radiology Impressions: ITS Impressions Chest X-Ray 07/22/21 01:15 IMPRESSION: No acute findings. Chest CT 07/22/21 03:17 IMPRESSION: * There are scattered endobronchial secretions and peribronchial opacities within the medial lower lobes bilaterally, and to lesser extent the dependent middle lobe, suggestive of aspiration pneumonitis/bronchiolitis. * Severe hepatic steatosis. Medications Allergies Allergies Allergy/AdvReac Type Severity Reaction Status Date / Time kiwi [KIWI] Allergy Unknown SWOLLEN Verified 07/22/21 15:50 LIPS Assessment & Plan Assessment & Plan (1) Opioid use disorder: Status: Acute Code(s): F11.90 - Opioid use, unspecified, uncomplicated Assessment and Plan: * harm reduction discussion * patient declining any treatment or referrals for OUD I spent __15____ minutes with the patient and/or on the patient floor today, greater than?50% of which was spent counseling/coordinating care.
== END 2021-07-23 11:52 | disposition home or self-care (01) | DRG 816 ==
LOC: HO.ED 02:27 → HO.EDOVER 02:30 → HO.ICU 04:25 → HO.S3 10:36
PROVIDERS: Internal Medicine Pulmonary Disease; Admitting Provider Registered Nurse Community Health; Emergency Provider Emergency Medicine Emergency Medical Services; PCP Internal Medicine; Visit Provider Internal Medicine
DX: T40.1X1A Poisoning by heroin, accidental (unintentional), initial encounter (principal); J96.01 Acute respiratory failure with hypoxia; J69.0 Pneumonitis due to inhalation of food and vomit; G92.8 Other toxic encephalopathy; N17.9 Acute kidney failure, unspecified; I10 Essential (primary) hypertension; D72.829 Elevated white blood cell count, unspecified; F19.10 Other psychoactive substance abuse, uncomplicated; Z20.822 Contact with and (suspected) exposure to COVID-19; Z79.51 Long term (current) use of inhaled steroids; Z79.899 Other long term (current) drug therapy
CPT/HCPCS: 36415; 71045; 71250; 80048; 80053; 80076; 80307; 82040; 82077; 82803; 82947; 83605; 83735; 83880; 84100; 85025; 87040; 87635; 93005; 96361; 96365; 96375; 99285; J0295; J2405; J2543